=== PATIENT | male | born 1940 | race Caucasian/White ===

== ENCOUNTER 2020-03-22 16:13 | Emergency (ER) | payer MEDICARE, SELFPAY ==
[2020-03-22] VITALS (16 sets, daily range): BP systolic 92–172; BP diastolic 60–93; PULSE 80–124; RESP 10–20; TEMP 35.1; O2SAT 94–100; BMI 29.7
--- NOTE | 2020-03-22 16:22 | XR_ITS ---
WS: [id number] Portable AP upright chest, 03/22/2020 Clinical Data: hypoxia, ETT Comparison: Portable chest, 09/27/2018. Findings: There is opacification of the left thorax from a previous pneumonectomy. There is a calcifi ed pleural plaque in the left upper pleura unchanged. The endotracheal tube is at the latha. It need s to be retreated 4 centimeters. The nasogastric tube appears to end at the gastroesophageal junction . Right lung is fully expanded with no nodules, masses or effusions. No right pneumothorax or pneumon ia is seen. There are monitor leads on the chest wall. XR/XR chest 1V portable [id number] Impression: 1. No change in opacification of left thorax from pneumonectomy and calcified l eft upper pleura. 2. Endotracheal tube is at the latha. It needs to be retreated 4 centimeters. 3. Nasogastric tube ends at the gastroesophageal junction.
[2020-03-22 16:31] LABS: Basophils % 0.3 %; Hematocrit 48.5 % (42.0-52.0); Hemoglobin 15.7 g/dL (11.7-16.6); Lymphocytes # 1.1 10^3/uL (0.8-4.8); Lymphocytes % 8.9 %; Mean Corpuscular HGB Conc 32.4 g/dL (30.0-36.0); Mean Corpuscular Hemoglobin 35.6 pg (28.0-34.0); Mean Platelet Volume 9.8 fL (7.4-10.4); Monocytes % 8.8 %; Neutrophils # 9.58 10^3/uL (1.8-7.7); Neutrophils % 81.5 %; Nucleated Red Blood Cells % 0 %; Platelet Count 184 10^3/cmm (130-400); Red Blood Count 4.41 10^6/uL (4.1-5.3); Red Cell Distribution Width 13.4 % (12.1-15.1); White Blood Count 11.8 10^3/uL (4.0-10.0)
--- NOTE | 2020-03-22 16:37 | CTR_ITS ---
PROCEDURE INFORMATION: Exam: CT Head Without Contrast Exam date and time: 03/22/2020 5:29 PM Age: 80 years old Clinical indication: Other: PT found unresponsive; Patient HX: Scanned twice due to motion; Additional info: AMS TECHNIQUE: Imaging protocol: Computed tomography of the head without contrast. Radiation optimization: All CT scans at this facility use at least one of these dose optimization techniques: automated exposure control; mA and/or kV adjustment per patient size (includes targeted exams where dose is matched to clinical indication); or iterative reconstruction. COMPARISON: CT head wo con* [id number] 09/27/2018 7:33 AM RADIATION DOSE METRICS: Total DLP (mGy-cm): 1270.9 FINDINGS: Brain: Cerebral arteriosclerosis. No visible evidence of acute intracranial pathologic process, trauma, or hemorrhage. No mass effect. No generalized edema. No midline shift. Moderately advanced small vessel ischemic disease with senile periventricular leukomalacia. Cerebral and cerebellar atrophy with ventricular dilatation greater than that anticipated for patient's chronological age. Ventricles: No obstructive ventriculomegaly. Bones/joints: Unremarkable. No acute fracture. Sinuses: Visualized sinuses are unremarkable. No fluid levels. Mastoid air cells: Visualized mastoid air cells are well aerated. Soft tissues: Unremarkable. CT/CT head wo con* [id number] IMPRESSION: No visible evidence of acute intracranial pathologic process, trauma, or hemorrhage. Radiation Dose CTDIVOL = (mGy): DLP = 1270.9 (mGy-cm)
--- NOTE | 2020-03-22 16:54 | W.ED.GENADLT ---
HPI - General Adult General: Chief complaint: General Medical Stated complaint: UNRESPONSIVE Time Seen by Provider: 03/22/20 16:14 History of Present Illness: HPI narrative: This patient is an 80-year-old male. His states that he has been in his normal state of health until just before the ambulance was called. She said he was just sitting on the couch and then suddenly slid off of it. She said he was responding to her and speaking appropriately. EMS reports that on their arrival he was cyanotic with a sat of 50%. They transported him with a nonrebreather and his sat was 100% on that on arrival. He had a nasal trumpet in. His GCS was 10 or 11. EMS did give him Narcan which increased his respiratory rate from about 7 to about 15 but did not change his mental status at all. He has a history of lung cancer and his says he had a left pneumonectomy in 1997. He has not had any problems with his lung cancer since then. She does not think he has a history of any kind of heart problems. He has not had any recent illness or been complaining of chest pain or shortness of breath. No known exposures to COVID. Onset (ago): minute(s) (Just prior to arrival) Review of Systems General: Reports: ROS unobtainable due to mental status [facility] ED PFSH: Medical History (Updated 03/23/20 @ 11:12 by Aleta Wong MD) DJD (degenerative joint disease) GERD (gastroesophageal reflux disease) History of lung cancer Seizure disorder Surgical History (Updated 03/22/20 @ 20:11 by Seamus Garcia MD) History of pneumonectomy Social History (Updated 03/22/20 @ 20:11 by Seamus Garcia MD) Smoking and tobacco status: former smoker Alcohol intake: never Physical Exam Narrative: EXAM NARRATIVE: Brought in by EMS, nasal trumpet in place, nonrebreather. Const: COMMON NORMALS: average body habitus ORIENTATION/CONSCIOUSNESS: Yes patient obtunded HENMT: COMMON NORMALS: normocephalic and atraumatic HEAD & SCALP: normocephalic and atraumatic Neck/C-Spine: COMMON NORMALS: no JVD GENERAL: Yes normal visual inspection Lymph: LYMPHATIC: no lymphadenopathy noted Chest: COMMONS NORMALS: normal inspection of the chest Resp: EFFORT & INSPECTION: Yes decreased respiratory effort AUSCULTATION: rhonchi (Right lung, throughout) and breath sounds absent (Left lung area) Cardio: COMMON NORMALS: no JVD RATE: tachycardic HEART SOUNDS: no murmurs GI: COMMON NORMALS: Normal to inspection, nondistended, normoactive bowel sounds present : COMMON NORMALS: Yes normal external exam Extremity: COMMON NORMALS: normal to inspection Neuro: VIANNEY COMA SCALE: document GCS findings [place] coma scale eye opening: To sound [place] coma scale verbal response: None [place] coma scale motor response: None [place] coma scale total score: 5 SENSORIUM/ORIENTATION: Yes obtunded Procedures Intubation Time out performed: Yes sedative: Etomidate Mg Given: 20 paralytic: Vecuronium Mg Given: 10 Laryngoscope: Samuel ET Tube Size: 7.5 ET Tube Uncuffed: No Tube Secured Depth (cm): 25 Tube Secured Location: other (gums) Tube Placement Confirmation: visualized tube passing through cords, equal breath sounds bilaterally, no breath sounds over epigastrium and confirmation by capnometry Patient Tolerated Procedure: well Intubation Complications: none Course ED course: This patient presented unresponsive and with no protection of his airway. His sats were adequate but only on a nonrebreather. He was intubated based on the EMS report that he was a full code. Short time after he was intubated he had some bradycardia and very weak pulse. He had an unmeasurable blood pressure. The rate on the monitor was in the 70s but he only had a palpable pulse of about 30. He was given a dose of atropine, epinephrine and put on epinephrine drip. His blood pressure came up high after the epinephrine as did his heart rate. It gradually came back down and he was hypotensive again. Once the epi drip was started his blood pressure came up and has remained around 120s over 130s on 2 mics of epinephrine. He initially did not require any sedation after getting etomidate and vecuronium for intubation. After some time he did wake up and was noted to move all 4 extremities. He responded to painful stimuli. Sedation was increased numerous times until we were finally able to get him comfortable and calm. I consulted Dr. Garcia for admission. He came to see the patient and was concerned that he could be having ongoing seizure activity given his seizure history. His , who is with him, is not the best historian and is a little vague about his seizure history. Apparently has these fairly frequently but they are atypical. He is on 3 different seizure medications. His does not feel that this episode was a seizure. Because we do not have neurology available over the next 4 days we thought it would be best to transfer him to a place where he can have a neurology consult and continuous EEG if necessary. His says that the only place she will have him transferred to his the [facility] and I am awaiting a callback from there. She says he has seen a neurologist there, Dr. Doss, in the past. Vital Signs: Vital signs: Vital Signs Temperature 95.1 F L 03/22/20 16:17 Pulse Rate 86 03/23/20 04:10 Respiratory Rate 16 03/23/20 04:10 Blood Pressure 137/93 03/23/20 04:10 Pulse Oximetry 98 03/23/20 04:10 MDM - General Adult Lab Data: Labs: Lab Results 03/22/20 03/22/20 03/22/20 Range/Units 16:23 16:24 16:24 WBC 11.8 H (4.0-10.0) 10^3/ uL RBC 4.41 (4.1-5.3) 10^6/u L Hgb 15.7 (11.7-16.6) g/dL Hct 48.5 (42.0-52.0) % MCV 110.0 H (80-94) fL MCH 35.6 H (28.0-34.0) pg MCHC 32.4 (30.0-36.0) g/dL RDW 13.4 (12.1-15.1) % Plt Count 184 (130-400) 10^3/c mm MPV 9.8 (7.4-10.4) fL Neut % (Auto) 81.5 % Lymph % (Auto) 8.9 % Bledsoe % (Auto) 8.8 % Eos % (Auto) 0.0 % Baso % (Auto) 0.3 % Neut # (Auto) 9.58 H (1.8-7.7) 10^3/u L Lymph # (Auto) 1.1 (0.8-4.8) 10^3/u L Bledsoe # (Auto) 1.0 H (0.2-0.9) 10^3/u L Eos # (Auto) 0.0 (0.0-0.8) 10^3/u L Baso # (Auto) 0.0 (0.0-0.1) 10^3/u L Nucleated RBC % (a uto) 0 % Nucleated RBCs # 0.0 /100WBC PT 12.60 (12.1-14.9) SECO NDS INR 0.92 (0.8-1.2) D-Dimer 0.49 (0-0.59) ug/mIFE U Specimen Type Sample Site ABG pH (7.35-7.45) ABG pCO2 (35-45) mmHg ABG pO2 (80.0-100.0) mmH g ABG HCO3 (22-26) mmol/L ABG Base Excess (-2.0-2.0) mmol/ L Wali Test Hematocrit (42-52) % O2 Delivery Device FiO2 % Tidal Volume PEEP cmH20 Demand Generation Manager ID Sodium (136-145) mmol/L Potassium (3.5-5.1) mmol/L Chloride (98-107) mmol/L Carbon Dioxide (22-29) mmol/L Anion Gap (5-19) BUN (8-23) mg/dL Creatinine (0.7-1.2) mg/dL GFR Calculation Glucose (65-115) mg/dL Calculated Osmolal ity (285-295) mOsm/k g Lactic Acid (0.5-2.2) mmol/L Calcium (8.5-10.5) mg/dL Magnesium (1.7-2.3) mg/dL Total Bilirubin (0.15-1.2) mg/dL AST (0-40) U/L ALT (0-41) U/L Alkaline Phosphata se (40-130) IU/L Ammonia 49 (16-60) umol/L Troponin T Baselin e (0-15) ng/L Troponin T 120 Min [place] (0-15) ng/L Delta Troponin T (0-10) ABS# C-Reactive Protein (0.0-4.9) mg/L Total Protein (6.6-8.7) g/dL Albumin (3.5-5.2) g/dL Globulin (1.3-4.6) g/dL Procalcitonin (0-0.5) ng/mL TSH (0.27-4.20) uIU/ mL Urine Color (Yellow) Urine Appearance (CLEAR) Urine pH (5-7) Ur Specific Gravit y (1.005-1.030) Urine Protein (Negative) Urine Glucose (UA) (Normal) Urine Ketones (Negative) Urine Blood (Negative) Urine Nitrate (Negative) Urine Bilirubin (NEGATIVE) Urine Urobilinogen (Negative) mg/dL Ur Leukocyte Renita ase (Negative) Urine RBC (0-2) /hpf Urine WBC (0-5) /hpf Ur Squamous Epith Cells (0-5) Amorphous Sediment Urine Bacteria (NONE) Urine Opiates Scre en (Negative) ng/mL Ur Barbiturates Sc reen (Negative) ng/mL Ur Phencyclidine S crn (Negative) ng/mL Ur Amphetamines Sc reen (Negative) ng/mL U Benzodiazepines Scrn (Negative) ng/mL Urine Cocaine Scre en (Negative) ng/mL U Marijuana (THC) Screen (Negative) ng/mL Ethyl Alcohol (0-10) mg/dL SARS-CoV-2 Ag (Rap id) (Negative) 03/22/20 03/22/20 03/22/20 Range/Units 16:24 16:24 16:44 WBC (4.0-10.0) 10^3/ uL RBC (4.1-5.3) 10^6/u L Hgb (11.7-16.6) g/dL Hct (42.0-52.0) % MCV (80-94) fL MCH (28.0-34.0) pg MCHC (30.0-36.0) g/dL RDW (12.1-15.1) % Plt Count (130-400) 10^3/c mm MPV (7.4-10.4) fL Neut % (Auto) % Lymph % (Auto) % Bledsoe % (Auto) % Eos % (Auto) % Baso % (Auto) % Neut # (Auto) (1.8-7.7) 10^3/u L Lymph # (Auto) (0.8-4.8) 10^3/u L Bledsoe # (Auto) (0.2-0.9) 10^3/u L Eos # (Auto) (0.0-0.8) 10^3/u L Baso # (Auto) (0.0-0.1) 10^3/u L Nucleated RBC % (a uto) % Nucleated RBCs # /100WBC PT (12.1-14.9) SECO NDS INR (0.8-1.2) D-Dimer (0-0.59) ug/mIFE U Specimen Type Sample Site ABG pH (7.35-7.45) ABG pCO2 (35-45) mmHg ABG pO2 (80.0-100.0) mmH g ABG HCO3 (22-26) mmol/L ABG Base Excess (-2.0-2.0) mmol/ L Wali Test Hematocrit (42-52) % O2 Delivery Device FiO2 % Tidal Volume PEEP cmH20 Demand Generation Manager ID Sodium 136 (136-145) mmol/L Potassium 4.6 (3.5-5.1) mmol/L Chloride 95 L (98-107) mmol/L Carbon Dioxide 29 (22-29) mmol/L Anion Gap 16.6 (5-19) BUN 32 H (8-23) mg/dL Creatinine 1.2 (0.7-1.2) mg/dL GFR Calculation Not Reportable Glucose 230 H (65-115) mg/dL Calculated Osmolal ity 287 (285-295) mOsm/k g Lactic Acid 1.8 (0.5-2.2) mmol/L Calcium 8.8 (8.5-10.5) mg/dL Magnesium 2.2 (1.7-2.3) mg/dL Total Bilirubin 0.3 (0.15-1.2) mg/dL AST 22 (0-40) U/L ALT 19 (0-41) U/L Alkaline Phosphata se 77 (40-130) IU/L Ammonia (16-60) umol/L Troponin T Baselin e (0-15) ng/L Troponin T 120 Min [place] (0-15) ng/L Delta Troponin T (0-10) ABS# C-Reactive Protein 39.4 H (0.0-4.9) mg/L Total Protein 7.4 (6.6-8.7) g/dL Albumin 4.2 (3.5-5.2) g/dL Globulin 3.2 (1.3-4.6) g/dL Procalcitonin 0.12 (0-0.5) ng/mL TSH (0.27-4.20) uIU/ mL Urine Color Yellow (Yellow) Urine Appearance Hazy A (CLEAR) Urine pH 6 (5-7) Ur Specific Gravit y 1.020 (1.005-1.030) Urine Protein Neg (Negative) Urine Glucose (UA) Norm (Normal) Urine Ketones Negative (Negative) Urine Blood Neg (Negative) Urine Nitrate Negative (Negative) Urine Bilirubin Neg (NEGATIVE) Urine Urobilinogen Neg (Negative) mg/dL Ur Leukocyte Renita ase 1+ H (Negative) Urine RBC None (0-2) /hpf Urine WBC 25-40 H (0-5) /hpf Ur Squamous Epith Cells 0-4 H (0-5) Amorphous Sediment Not Reportable Urine Bacteria 2+ H (NONE) Urine Opiates Scre en (Negative) ng/mL Ur Barbiturates Sc reen (Negative) ng/mL Ur Phencyclidine S crn (Negative) ng/mL Ur Amphetamines Sc reen (Negative) ng/mL U Benzodiazepines Scrn (Negative) ng/mL Urine Cocaine Scre en (Negative) ng/mL U Marijuana (THC) Screen (Negative) ng/mL Ethyl Alcohol < 10 (0-10) mg/dL SARS-CoV-2 Ag (Rap id) (Negative) 03/22/20 03/22/20 03/22/20 Range/Units 16:44 16:54 18:52 WBC (4.0-10.0) 10^3/ uL RBC (4.1-5.3) 10^6/u L Hgb (11.7-16.6) g/dL Hct (42.0-52.0) % MCV (80-94) fL MCH (28.0-34.0) pg MCHC (30.0-36.0) g/dL RDW (12.1-15.1) % Plt Count (130-400) 10^3/c mm MPV (7.4-10.4) fL Neut % (Auto) % Lymph % (Auto) % Bledsoe % (Auto) % Eos % (Auto) % Baso % (Auto) % Neut # (Auto) (1.8-7.7) 10^3/u L Lymph # (Auto) (0.8-4.8) 10^3/u L Bledsoe # (Auto) (0.2-0.9) 10^3/u L Eos # (Auto) (0.0-0.8) 10^3/u L Baso # (Auto) (0.0-0.1) 10^3/u L Nucleated RBC % (a uto) % Nucleated RBCs # /100WBC PT (12.1-14.9) SECO NDS INR (0.8-1.2) D-Dimer (0-0.59) ug/mIFE U Specimen Type Arterial Sample Site Brachial, left ABG pH 7.39 (7.35-7.45) ABG pCO2 36.2 (35-45) mmHg ABG pO2 499.0 H (80.0-100.0) mmH g ABG HCO3 22.0 (22-26) mmol/L ABG Base Excess -2.5 L (-2.0-2.0) mmol/ L Wali Test N/a Hematocrit 42.3 (42-52) % O2 Delivery Device Vent FiO2 100.0 % Tidal Volume 0.55 PEEP 8.0 cmH20 Demand Generation Manager ID glc Sodium (136-145) mmol/L Potassium (3.5-5.1) mmol/L Chloride (98-107) mmol/L Carbon Dioxide (22-29) mmol/L Anion Gap (5-19) BUN (8-23) mg/dL Creatinine (0.7-1.2) mg/dL GFR Calculation Glucose (65-115) mg/dL Calculated Osmolal ity (285-295) mOsm/k g Lactic Acid (0.5-2.2) mmol/L Calcium (8.5-10.5) mg/dL Magnesium (1.7-2.3) mg/dL Total Bilirubin (0.15-1.2) mg/dL AST (0-40) U/L ALT (0-41) U/L Alkaline Phosphata se (40-130) IU/L Ammonia (16-60) umol/L Troponin T Baselin e (0-15) ng/L Troponin T 120 Min [place] (0-15) ng/L Delta Troponin T (0-10) ABS# C-Reactive Protein (0.0-4.9) mg/L Total Protein (6.6-8.7) g/dL Albumin (3.5-5.2) g/dL Globulin (1.3-4.6) g/dL Procalcitonin (0-0.5) ng/mL TSH (0.27-4.20) uIU/ mL Urine Color (Yellow) Urine Appearance (CLEAR) Urine pH (5-7) Ur Specific Gravit y (1.005-1.030) Urine Protein (Negative) Urine Glucose (UA) (Normal) Urine Ketones (Negative) Urine Blood (Negative) Urine Nitrate (Negative) Urine Bilirubin (NEGATIVE) Urine Urobilinogen (Negative) mg/dL Ur Leukocyte Renita ase (Negative) Urine RBC (0-2) /hpf Urine WBC (0-5) /hpf Ur Squamous Epith Cells (0-5) Amorphous Sediment Urine Bacteria (NONE) Urine Opiates Scre en Negative (Negative) ng/mL Ur Barbiturates Sc reen Negative (Negative) ng/mL Ur Phencyclidine S crn Negative (Negative) ng/mL Ur Amphetamines Sc reen Negative (Negative) ng/mL U Benzodiazepines Scrn Negative (Negative) ng/mL Urine Cocaine Scre en Negative (Negative) ng/mL U Marijuana (THC) Screen Negative (Negative) ng/mL Ethyl Alcohol (0-10) mg/dL SARS-CoV-2 Ag (Rap id) Negative (Negative) 03/22/20 03/22/20 03/22/20 Range/Units 19:58 19:58 21:48 WBC (4.0-10.0) 10^3/ uL RBC (4.1-5.3) 10^6/u L Hgb (11.7-16.6) g/dL Hct (42.0-52.0) % MCV (80-94) fL MCH (28.0-34.0) pg MCHC (30.0-36.0) g/dL RDW (12.1-15.1) % Plt Count (130-400) 10^3/c mm MPV (7.4-10.4) fL Neut % (Auto) % Lymph % (Auto) % Bledsoe % (Auto) % Eos % (Auto) % Baso % (Auto) % Neut # (Auto) (1.8-7.7) 10^3/u L Lymph # (Auto) (0.8-4.8) 10^3/u L Bledsoe # (Auto) (0.2-0.9) 10^3/u L Eos # (Auto) (0.0-0.8) 10^3/u L Baso # (Auto) (0.0-0.1) 10^3/u L Nucleated RBC % (a uto) % Nucleated RBCs # /100WBC PT (12.1-14.9) SECO NDS INR (0.8-1.2) D-Dimer (0-0.59) ug/mIFE U Specimen Type Sample Site ABG pH (7.35-7.45) ABG pCO2 (35-45) mmHg ABG pO2 (80.0-100.0) mmH g ABG HCO3 (22-26) mmol/L ABG Base Excess (-2.0-2.0) mmol/ L Wali Test Hematocrit (42-52) % O2 Delivery Device FiO2 % Tidal Volume PEEP cmH20 Demand Generation Manager ID Sodium (136-145) mmol/L Potassium (3.5-5.1) mmol/L Chloride (98-107) mmol/L Carbon Dioxide (22-29) mmol/L Anion Gap (5-19) BUN (8-23) mg/dL Creatinine (0.7-1.2) mg/dL GFR Calculation Glucose (65-115) mg/dL Calculated Osmolal ity (285-295) mOsm/k g Lactic Acid (0.5-2.2) mmol/L Calcium (8.5-10.5) mg/dL Magnesium (1.7-2.3) mg/dL Total Bilirubin (0.15-1.2) mg/dL AST (0-40) U/L ALT (0-41) U/L Alkaline Phosphata se (40-130) IU/L Ammonia (16-60) umol/L Troponin T Baselin e 200 H* (0-15) ng/L Troponin T 120 Min [place] 211.4 H (0-15) ng/L Delta Troponin T 11.4 H* (0-10) ABS# C-Reactive Protein (0.0-4.9) mg/L Total Protein (6.6-8.7) g/dL Albumin (3.5-5.2) g/dL Globulin (1.3-4.6) g/dL Procalcitonin (0-0.5) ng/mL TSH 0.94 (0.27-4.20) uIU/ mL Urine Color (Yellow) Urine Appearance (CLEAR) Urine pH (5-7) Ur Specific Gravit y (1.005-1.030) Urine Protein (Negative) Urine Glucose (UA) (Normal) Urine Ketones (Negative) Urine Blood (Negative) Urine Nitrate (Negative) Urine Bilirubin (NEGATIVE) Urine Urobilinogen (Negative) mg/dL Ur Leukocyte Renita ase (Negative) Urine RBC (0-2) /hpf Urine WBC (0-5) /hpf Ur Squamous Epith Cells (0-5) Amorphous Sediment Urine Bacteria (NONE) Urine Opiates Scre en (Negative) ng/mL Ur Barbiturates Sc reen (Negative) ng/mL Ur Phencyclidine S crn (Negative) ng/mL Ur Amphetamines Sc reen (Negative) ng/mL U Benzodiazepines Scrn (Negative) ng/mL Urine Cocaine Scre en (Negative) ng/mL U Marijuana (THC) Screen (Negative) ng/mL Ethyl Alcohol (0-10) mg/dL SARS-CoV-2 Ag (Rap id) (Negative) Discharge Plan Discharge Patient Disposition: Xfer Intermediate Care Fac Clinical Impression: Syncope and collapse, History of seizure disorder Hypotension Qualifiers: Hypotension type: unspecified hypotension type Qualified Code(s): I95.9 - Hypotension, unspecified Respiratory failure Qualifiers: Chronicity: unspecified Respiratory failure complication: unspecified whether with hypoxia or hypercapnia Qualified Code(s): J96.90 - Respiratory failure, unspecified, unspecified whether with hypoxia or hypercapnia Prescriptions: No Action Unable to Assess RF: 0 Referrals: Laith Rasheed MD [Primary Care Provider] - Discharge Date/Time: 03/23/20 05:13 Coding Level of Care Code ED Personal Lines Underwriter for g Fwd Exam Comprehensive
[2020-03-22 16:55] LABS: INR 0.92 (0.8-1.2)
[2020-03-22 16:56] LABS: Ammonia 49 umol/L (16-60)
[2020-03-22] MEDS: vecuronium 10 mg SDV IVP (16:57)
[2020-03-22] MEDS: EPINEPHrine 0.1 mg/mL SYR 10 mL 1 MG IVP (16:57)
[2020-03-22 16:58] LABS: D Dimer 0.49 ug/mIFEU (0-0.59)
[2020-03-22 16:59] LABS: Add Urine Microscopic? YES; Bilirubin Urine Neg (NEGATIVE); Blood Urine Neg (Negative); Glucose Urine UA Norm (Normal); Ketones Urine Negative (Negative); Leukocyte Esterase Urine 1+ (Negative); Nitrate Urine Negative (Negative); Protein Urine Neg (Negative); Urine Appearance Hazy (CLEAR); Urine Color Yellow (Yellow); Urobilinogen Urine Neg (Negative); pH Urine 6 (5-7)
[2020-03-22 17:01] LABS: Lactic Sepsis W/Reflex 1.8 mmol/L (0.5-2.2)
[2020-03-22 17:02] LABS: Bacteria Urine 2+; Squamous Epithelial Cell Urine 0-4 (0-5); WBC Urine 25-40 /hpf (0-5)
[2020-03-22 17:03] LABS: Add Urine Culture? Yes
[2020-03-22 17:03] LABS: ABG PCO2 36.2 mmHg (35-45); ABG PH Result 7.39 (7.35-7.45); Arterial Blood Gas Hematocrit 42.3 % (42-52); Base Excess ABG -2.5 mmol/L (-2.0-2.0); Blood Gas Operator Identificat glc; Blood Gas Sample Site Brachial, left; Blood Gas Sample Type Arterial; Blood Gas Tidal Volume 0.55; Oxygen Device VENT
[2020-03-22 17:10] LABS: Procalcitonin 0.12 ng/mL (0-0.5)
[2020-03-22] MEDS: EPINEPHrine 2.5 MG in sodium chloride 0.9% 250 ML 18.2 MG IV (17:13)
[2020-03-22 17:21] LABS: Alanine Aminotransferase 19 U/L (0-41); Albumin Level 4.2 g/dL (3.5-5.2); Alkaline Phosphatase 77 IU/L (40-130); Anion Gap 16.6 (5-19); Aspartate Amino Transferase 22 U/L (0-40); Blood Urea Nitrogen 32 mg/dL (8-23); C Reactive Protein 39.4 mg/L (0.0-4.9); Calcium 8.8 mg/dL (8.5-10.5); Carbon Dioxide 29 mmol/L (22-29); Chloride 95 mmol/L (98-107); Globulin 3.2 g/dL (1.3-4.6); Glucose 230 mg/dL (65-115); Magnesium 2.2 mg/dL (1.7-2.3); Osmolality Calculated 287 mOsm/kg (285-295); Potassium 4.6 mmol/L (3.5-5.1); Sodium 136 mmol/L (136-145); Total Bilirubin 0.3 mg/dL (0.15-1.2); Total Protein 7.4 g/dL (6.6-8.7)
[2020-03-22 17:23] LABS: Alcohol Level < 10 mg/dL (0-10)
[2020-03-22] MEDS: propofol 1,000 MG/100 ML INJ 1.6 MG IV (17:38)
--- NOTE | 2020-03-22 17:38 | PC.NURSE ---
pt given 20 mcg bolus diprovan from pump
--- NOTE | 2020-03-22 18:18 | CTR_ITS ---
PROCEDURE INFORMATION: Exam: CT Angiography Chest With Contrast Exam date and time: 03/22/2020 6:19 PM Age: 80 years old Clinical indication: Other: Hypoxia; Prior surgery; Surgery type: Lung TECHNIQUE: Imaging protocol: Computed tomographic angiography of the chest with intravenous contrast. 3D rendering (Not supervised by radiologist): MIP and/or 3D reconstructed images were created by the technologist. Radiation optimization: All CT scans at this facility use at least one of these dose optimization techniques: automated exposure control; mA and/or kV adjustment per patient size (includes targeted exams where dose is matched to clinical indication); or iterative reconstruction. Contrast material: VISI 320; Contrast volume: 72 ml; Contrast route: INTRAVENOUS (IV); COMPARISON: CT chest w con* [id number] 09/27/2018 7:50 AM RADIATION DOSE METRICS: Total DLP (mGy-cm): 648.56 FINDINGS: Tubes, catheters and devices: Endotracheal tube with tip at the latha and could be retracted 3-4 cm for optimal positioning. Nasogastric tube tip below the diaphragm at the level of the gastric fundus and could be advanced for optimal positioning. Pulmonary arteries: No visible pulmonary embolism/pulmonary arterial thrombus. Aorta: The thoracic aorta is nonaneurysmal. Mild arterial sclerotic disease. Lungs: Right lung with evidence of mild centrilobular emphysema. No visible active interstitial or alveolar airspace disease. Pleural space: Status post left pneumonectomy. Again note of chronic dystrophic calcifications of the left hemothorax pleura with stable pleural thickening. No visible interval change since 09/27/2018. Heart: Cardiac structures and configuration stable with 3 vessel coronary artery disease. Left ventricular prominence. No visible pericardial effusion. Lymph nodes: No visible active mediastinal or right hilar lymphadenopathy. Kidneys and ureters: Incidental note of a tiny focus of nonobstructing calyceal nephrolithiasis equator left kidney under 2 mm. Enlarged hydropic gallbladder without cholelithiasis. Bones/joints: No visible acute osseous abnormality. Age-appropriate degenerative disease and old compression wedge deformities of the distal thoracic and upper lumbar vertebral bodies. Mild scoliosis. Soft tissues: Unremarkable for age. Other findings: Artifact limits detail assessment image quality. CT/CT angio chest PE protcl [id number] IMPRESSION: 1. No visible pulmonary embolism. 2. Endotracheal tube with tip at the latha and could be retracted 3-4 cm for optimal positioning. 3. Nasogastric tube tip below the diaphragm at the level of the gastric fundus and could be advanced for optimal positioning. 4. Status post left pneumonectomy. 5. Other nonurgent, nonemergent, chronic, and age related findings as detailed in text above. Radiation Dose CTDIVOL = (mGy): DLP = 648.56 (mGy-cm)
[2020-03-22] MEDS: iodixanol 320 mg/mL 100mL Btl IV (18:38)
[2020-03-22] MEDS: fentaNYL 50 mcg/mL INJ 2mL 100 MCG IVP ×2 (18:57→20:47)
--- NOTE | 2020-03-22 18:57 | PC.NURSE ---
pt spouse states she is not leaving while nurse swabs for COVID . ED physician informed. Pt spouse instructed to not leave room under any circumstances. pt spouse veralized.
--- NOTE | 2020-03-22 19:07 | ECG_ITS ---
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 Measurements Intervals [place] Rate: 95 P: MI: -1 QRS: -54 QRSD: 158 T: 99 QT: 347 QTc: 438 Interpretive Statements Sinus rhytm with first degree AV block LEFT AXIS DEVIATION [QRS AXIS < -30] INTRAVENTRICULAR CONDUCTION DELAY [130+ ms QRS DURATION] Compared to ECG 09/27/2018 07:07:11 Left anterior fascicular block no longer present Left ventricular hypertrophy no longer present ST (T wave) deviation no longer present Myocardial infarct finding no longer present Electronically Signed On 03-23-2020 16:22:59 CDT by Joshua Albarran M.D. [id number]
[2020-03-22 19:19] LABS: SARS Covid-2 Antigen Negative (Negative)
--- NOTE | 2020-03-22 20:07 | P.CONIM_ITS ---
Providers/Reason For Consult Consulting Physican/Specialty*: Internal medicine Reason for Consult*: Unresponsive Attending Physician: Seamus Garcia MD Primary Care Provider: Laith Rasheed MD History of Present Illness History of Present Illness Ina Doyle is a 80 year old male that presents to the emergency department with history of an unresponsive episode. Apparently this afternoon around 4:30 PM, he suddenly slid off the couch while in the presence of his . She reports he did not respond to her at all initially. When paramedics arrived he said a few words, basically stating he did not want a go to the hospital. He had not been sick at all prior to the event. When paramedics arrived he apparently had a low oxygen saturation, and required a nasal trumpet. Narcan was tried but did not improve mental status. He ended up being intubated in the emergency department and had bradycardia following this as well as hypotension for which she was placed on some epinephrine IV. While I am seeing him he is on propofol. Nurse alerts me that while in the emergency department he was moving all of his extremities, and withdrawing from pain. He is never had a history of a stroke. He does not have any heart disease. alerts me that he has some type of neck problem leading to frequent falls. She also relates that he has seizures, usually starting with shaking of his right hand and then a generalized component of confusion and postictal state. She states this is not controlled despite multiple seizure medicines and he typically will have a seizure every 10 to 15 days. He has not had any exposure to COVID, personal history of COVID, or fever. Review of Systems General: Reports: 10 or more systems reviewed and unremarkable except in HPI and below (Unable to obtain currently from the patient secondary to mental status.) Meds/Allergies Home Medications and Allergies Home Medications Medication Instructions Recorded Confirmed Last Taken Type Unable to Assess 03/22/20 03/22/20 Unknown History Allergies Allergy/AdvReac Type Severity Reaction Status Date / Time No Known Allergies Allergy Verified 03/22/20 17:01 Current Medications Current Medications Generic Name Dose Route Start Last Admin Trade Name Freq PRN Reason Stop Dose Admin Propofol 1,000 mg in 100 mls @ 0 mls/hr 03/22/20 16:30 03/22/20 18:42 Diprivan IV 20 mcg/kg/min .Q0M BRITNI 10.3 mls/hr Titration Protocol Per Protocol Epinephrine HCl 2.5 mg/ Sodium 252.5 mls @ 0 mls/hr 03/22/20 16:30 03/22/20 17:13 Chloride IV 3 mcg/min .Q0M BRITNI 18.2 mls/hr Administration Protocol Per Protocol PFSH Acute PFSH: Medical History (Updated 03/22/20 @ 20:19 by Seamus Garcia MD) DJD (degenerative joint disease) GERD (gastroesophageal reflux disease) History of lung cancer Seizure disorder Surgical History (Updated 03/22/20 @ 20:11 by Seamus Garcia MD) History of pneumonectomy Social History (Updated 03/22/20 @ 20:11 by Seamus Garcia MD) Smoking and tobacco status: former smoker Alcohol intake: never Supplemental PFSH Information: Unable to obtain family history secondary to patient's mental status Vitals/I&O/Wt Last Vital Signs Temp 95.1 F L 03/22/20 16:17 Pulse 92 03/22/20 18:43 Resp 20 H 03/22/20 18:43 BP 128/70 03/22/20 18:51 Pulse Ox 100 03/22/20 19:01 03/22/20 03/22/20 03/22/20 06:59 14:59 22:59 Intake Total 1.707 / 1.707 Balance 1.707 / 1.707 Weight last 48 hrs Weight 86.183 kg Physical Exam Narrative: EXAM NARRATIVE: General exam is an adult white male, sedated on the ventilator. HEENT: Pupils equally round. Oropharynx with endotracheal tube. Neck is supple no lymphadenopathy or thyromegaly Cardiovascular regular rate and rhythm, no murmur. Lungs right lung clear. No breath sounds on the left. Abdomen is soft positive bowel sounds. No obvious organomegaly was deferred Extremities no cyanosis clubbing or edema, cap refill brisk Skin no rash Neuro sedated Urinary Catheter Management^: [place]: Cath Placed During This Visit: yes Reason for Continuing Indwelling Catheter: Accurate Measurement of Urinary Output in Critically Ill Patients Urinary Catheter Date of Insertion: 03/22/20 Urinary Catheter Time of Insertion: 16:36 Data Micro: Micro: Microbiology 03/22/20 16:35 Gram Stain - Final Sputum - Expector ated Sputum 03/22/20 16:28 Blood Culture - Pr eliminary Blood [facility] 03/22/20 16:24 Blood Culture - Pr eliminary Blood SPE[facility]IM[facility] Other Data: Other data: In discussion with respiratory therapist carbon monoxide level was not elevated. Chest x-ray she demonstrated pneumonectomy on the left, no infiltrate on the ri ght Head CT negative for anything acute CTA chest demonstrated no pulmonary embolism, pneumonectomy is noted pH 7.39, PCO2 36, PO2 499 CRP 39.4. LFTs normal TSH pending Rapid COVID negative Urinalysis demonstrates 25-40 whites, 0 reds Alcohol level less than 10 EKG demonstrates significant baseline waiver, sinus rhythm, left axis deviation. No ST elevation is noted. Intraventricular conduction delay is noted with a QRS duration of 158. Troponin has been ordered and pending A&P Assessment and plan (1) Syncope and collapse: Etiology of this is wide. The biggest concern would possibly be a seizure. Other potentials would be cardiac arrhythmia, CVA, myocardial infarction or cardiac outflow tract obstruction. Pulmonary embolism has been excluded. as he has a known seizure disorder requiring 3 medications and poor control despite this he will need neurology services and possible continuous EEG. This is not available currently here so transfer has been recommended. The emergency physician is reviewing the case and trying to arrange this. Consideration currently of reducing sedation, and seeing if he can follow directions and is responsive. If not, consider loading with Keppra. He was intubated secondary to GCS being significantly low with inability to protect airway. I have discussed this case with respiratory who will adjust his ventilator settings secondary to pneumonectomy(change to pressure support from assist control) Status: Acute (2) Hypotension: Epinephrine was started. This is only a 2. This is going to be weaned, to assess if he still needs this. He had episode of hypotension and bradycardia following intubation Status: Acute (3) UTI (urinary tract infection): Consider Rocephin IV prior to discharge Status: Acute Additional A&P Information Elevated glucose, without prior history of diabetes. Recheck and consider hemoglobin A1c. History of pneumonectomy for lung malignancy History of seizure disorder, on 3 medications History of GERD relates that he is full code, but would not want any long-term ventilatory support Consult Attestations Medical Necessity Statement: Not applicable Time Spent in Patient Care: Greater than 35 minutes Critical Care Time: 64 minutes spent in critical care time at bedside rev iewing ventilator settings, patient history, exam in this patient with respiratory failure, syncope and collapse, possible seizure who has a high risk for further decompensation and/or . Coding Level of Care Code Acute Director [employer] for [employer] Diagnoses Syncope and collapse R55 Hypotension I95.9 UTI (urinary tract infection) N39.0
[2020-03-22 20:36] LABS: Thyroid Stimulating Hormone 0.94 uIU/mL (0.27-4.20)
[2020-03-22 20:49] LABS: Troponin(5th) Baseline 200 ng/L (0-15)
--- NOTE | 2020-03-22 21:34 | PC.NURSE ---
during pt rounds, @1940 Dr Garcia gave vo to turn off epi drip. 2004: vo from Dr Garcia to titrate propofol drip until pt able to respond to verbal commands. Drip turned down to 4mcg/min. Pt able to respond to painful stimuli. vitals stable 2054: vo obtained from Dr Wong for 100mcg of fentanyl IVP prior to fentanyl drip to control pt's sedation. Pt's vitals stable at bedside
[2020-03-22 21:47] LABS: Amphetamines Screen Urine Negative (Negative); Barbiturates Screen Urine Negative (Negative); Benzodiazepines Screen Urine Negative (Negative); Cocaine Screen Urine Negative (Negative); Opiate Screen Urine Negative (Negative); PCP Screen Urine Negative (Negative); THC Screen Urine Negative (Negative)
[2020-03-22 22:37] LABS: Troponin 5 2HR 211.4 ng/L (0-15)
[2020-03-22 22:38] LABS: Troponin 5 2HR Delta 11.4 ABS# (0-10)
[2020-03-23 04:10] VITALS: BP 137/93; PULSE 86; RESP 16; O2SAT 98
== END 2020-03-23 05:13 | disposition intermediate care facility (04) ==
PROVIDERS: Internal Medicine; Emergency Provider Emergency Medicine
DX: R55 Syncope and collapse (principal); I95.9 Hypotension, unspecified; J96.90 Respiratory failure, unspecified, unspecified whether with hypoxia or hypercapnia; Z85.118 Personal history of other malignant neoplasm of bronchus and lung; Z90.2 Acquired absence of lung [part of]; Z87.891 Personal history of nicotine dependence
CPT/HCPCS: 12345; 31500; 36415; 36600; 51702; 70450; 71045; 71275; 80053; 80306; 80307; 81001; 82140; 82803; 83605; 83735; 84145; 84443; 84484; 85025; 85378; 85610; 86140; 87040; 87070; 87077; 87086; 87186; 87205; 87426; 93005; 94002; 94799; 96365; 96366; 96367; 96368; 96375; 96376; 99284; 99291; J0171; J0461; J2704; J3010; J3490; J7050; Q9967

== ENCOUNTER 2021-03-24 13:55 | Observation (INO) | payer MEDICARE, SELFPAY ==
[2021-03-24] VITALS (7 sets, daily range): BP systolic 128–172; BP diastolic 68–90; PULSE 78–94; RESP 18–27; TEMP 36.5–37.2; O2SAT 94–97; BMI 26.6
--- NOTE | 2021-03-24 14:07 | CTR_ITS ---
PROCEDURE INFORMATION: Exam: CT Head Without Contrast Exam date and time: 03/24/2021 2:07 PM Age: 81 years old Clinical indication: Altered mental status/memory loss; Confusion or disorientation; Additional info: AMS TECHNIQUE: Imaging protocol: Computed tomography of the head without contrast. Radiation optimization: All CT scans at this facility use at least one of these dose optimization techniques: automated exposure control; mA and/or kV adjustment per patient size (includes targeted exams where dose is matched to clinical indication); or iterative reconstruction. COMPARISON: CT head wo con* [id number] 03/22/2020 6:12 PM RADIATION DOSE METRICS: Total DLP (mGy-cm): 783.87 FINDINGS: Brain: No hemorrhage. Moderate diffuse cerebral atrophy and sequela of chronic small vessel ischemic disease. No mass effect. Cerebral ventricles: No ventriculomegaly. Paranasal sinuses: Visualized sinuses are unremarkable. No fluid levels. Mastoid air cells: Visualized mastoid air cells are well aerated. Orbital cavity: Post cataract surgical changes of the globes. Bones/joints: Unremarkable. No acute fracture. Soft tissues: Unremarkable. CT/CT head wo con* [id number] IMPRESSION: 1. No acute intracranial abnormality. 2. Moderate diffuse cerebral atrophy and sequela of chronic small vessel ischemic disease. Radiation Dose CTDIVOL = (mGy): DLP = 783.87 (mGy-cm)
--- NOTE | 2021-03-24 14:07 | XRR_ITS ---
PROCEDURE INFORMATION: Exam: XR Chest Exam date and time: 03/24/2021 2:07 PM Age: 81 years old Clinical indication: Dyspnea TECHNIQUE: Imaging protocol: XR of the chest. Views: 1 view. COMPARISON: MA XR chest 1V portable [id number] 03/22/2020 5:27 PM FINDINGS: Lungs: Left pneumonectomy changes again noted. No consolidation in the right lung. Pleural spaces: Unremarkable. No pleural effusion. No pneumothorax. Heart/Mediastinum: Unremarkable. No cardiomegaly. Bones/joints: Visualized osseous structures are intact. XR/XR chest 1V portable [id number] IMPRESSION: No acute findings.
--- NOTE | 2021-03-24 14:10 | ECG_ITS ---
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[id number] Requested By: Teresita Farley Order Number: [id number] Reading MD: KENNY MOCK Measurements Intervals [place] Rate: 86 P: 57 AR: 224 QRS: -52 QRSD: 102 T: 109 QT: 365 QTc: 438 Interpretive Statements SINUS RHYTHM WITH FIRST DEGREE AV BLOCK LEFT ANTERIOR FASCICULAR BLOCK [QRS AXIS <= -45, QR IN I, RS IN II] LEFT VENTRICULAR HYPERTROPHY AND ST-T CHANGE [VOLTAGE CRITERIA PLUS ST/T ABNORMALITY] POSSIBLE ANTEROSEPTAL MYOCARDIAL INFARCTION , OF INDETERMINATE AGE [30 ms Q WAVE IN V1-V4] Compared to ECG 03/22/2020 18:45:40 Left anterior fascicular block now present Left ventricular hypertrophy now present ST (T wave) deviation now present Myocardial infarct finding now present Left-axis deviation no longer present Intraventricular conduction delay no longer present Electronically Signed On 03-24-2021 20:13:32 CDT by KENNY MOCK [email or web address]
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
[2021-03-24] MEDS: albuterol 8 gm MDI 2 PUFF INHALATION (14:48)
[2021-03-24 14:58] LABS: Blood Gas Allen Test Pos; Blood Gas Operator Identificat MONRO; Blood Gas Sample Type Venous; Oxygen Device ROOM AIR
[2021-03-24] MEDS: sodium chloride 0.9% 500 ML IV (15:06)
[2021-03-24] MEDS: predniSONE 20 mg Tablet 60 MG PO (15:06)
[2021-03-24 15:26] LABS: Basophils # 0.1 10^3/uL (0.0-0.1); Basophils % 0.6 %; Eosinophils # 0.1 10^3/uL (0.0-0.8); Eosinophils % 1.2 %; Hematocrit 38.5 % (42.0-52.0); Hemoglobin 13.1 g/dL (11.7-16.6); Lymphocytes # 1.3 10^3/uL (0.8-4.8); Lymphocytes % 16.2 %; Mean Corpuscular Hemoglobin 35.7 pg (28.0-34.0); Mean Corpuscular Volume 104.9 fl (80-94); Mean Platelet Volume 9.3 fL (7.4-10.4); Monocytes # 0.8 10^3/uL (0.2-0.9); Monocytes % 10.1 %; Neutrophils # 5.57 10^3/uL (1.8-7.7); Neutrophils % 71.3 %; Nucleated Red Blood Cells % 0 %; Platelet Count 215 10^3/cmm (130-400); Red Blood Count 3.67 10^6/uL (4.1-5.3); Red Cell Distribution Width 12.1 % (12.1-15.1); White Blood Count 7.8 10^3/uL (4.0-10.0)
[2021-03-24 15:41] LABS: Troponin(5th) Baseline 31 ng/L (0-15)
[2021-03-24 15:42] LABS: Lactate (Lactic Acid level) 1.2 mmol/L (0.5-2.2)
[2021-03-24 15:43] LABS: Alanine Aminotransferase 49 U/L (0-41); Albumin Level 3.2 g/dL (3.5-5.2); Alkaline Phosphatase 78 IU/L (40-130); Anion Gap 15.1 (5-19); Aspartate Amino Transferase 61 U/L (0-40); Blood Urea Nitrogen 26 mg/dL (8-23); Calcium 8.1 mg/dL (8.5-10.5); Carbon Dioxide 24 mmol/L (22-29); Chloride 101 mmol/L (98-107); Globulin 2.4 g/dL (1.3-4.6); Glucose 108 mg/dL (65-115); Lipase 28 U/L (13-60); Osmolality Calculated 287 mOsm/kg (285-295); Potassium 4.1 mmol/L (3.5-5.1); Sodium 136 mmol/L (136-145); Total Bilirubin 0.3 mg/dL (0.15-1.2); Total Protein 5.6 g/dL (6.6-8.7)
[2021-03-24 15:55] LABS: Urine Appearance Cloudy (CLEAR); Urine Color Yellow (Yellow)
[2021-03-24 15:56] LABS: Add Urine Microscopic? YES; Bilirubin Urine Neg (Negative); Blood Urine 3+ (Negative); Glucose Urine UA Norm (Normal); Ketones Urine Negative (Negative); Leukocyte Esterase Urine 2+ (Negative); Nitrate Urine Negative (Negative); Protein Urine 1+ (Negative); Urobilinogen Urine Norm (Negative); pH Urine 5 (5-7)
[2021-03-24 15:58] LABS: WBC Urine TOO NUMEROUS TO CNT /hpf (0-5)
[2021-03-24 15:59] LABS: Add Urine Culture? Yes; Bacteria Urine 2+ /hpf
[2021-03-24 16:06] LABS: Creatine Phosphokinase 452 U/L (39-308)
--- NOTE | 2021-03-24 16:16 | CTR_ITS ---
PROCEDURE INFORMATION: Exam: CT Abdomen And Pelvis With Contrast Exam date and time: 03/24/2021 4:16 PM Age: 81 years old Clinical indication: Abdominal pain; Prior surgery; Surgery type: Lung; Additional info: Rule out obstructive pathologies per Dr. Chun TECHNIQUE: Imaging protocol: Computed tomography of the abdomen and pelvis with contrast. Radiation optimization: All CT scans at this facility use at least one of these dose optimization techniques: automated exposure control; mA and/or kV adjustment per patient size (includes targeted exams where dose is matched to clinical indication); or iterative reconstruction. Contrast material: OMNI 300; Contrast volume: 95 ml; Contrast route: INTRAVENOUS (IV); COMPARISON: CT angio chest PE protcl [id number] 03/22/2020 6:22 PM RADIATION DOSE METRICS: Total DLP (mGy-cm): 1256.71 FINDINGS: Liver: Normal. No mass. Gallbladder and bile ducts: Normal. No calcified stones. No ductal dilation. Pancreas: Normal. No ductal dilation. Spleen: Normal. No splenomegaly. Adrenal glands: Normal. No mass. Kidneys and ureters: Normal. No hydronephrosis. Stomach and bowel: Unremarkable. No obstruction. No mucosal thickening. Appendix: No evidence of appendicitis. Intraperitoneal space: Unremarkable. No free air. No significant fluid collection. Vasculature: Unremarkable. No abdominal aortic aneurysm. Lymph nodes: Unremarkable. No enlarged lymph nodes. Urinary bladder: Overdistended bladder with trabeculated appearance and bladder diverticula. 4 mm bladder stone. Reproductive: Punctate calcifications noted within the central prostate. Bones/joints: No acute fracture. Generalized osseous demineralization. Multilevel moderate compression deformities throughout the lower thoracic and upper lumbar spine and L4. They do not appear acute. Old posterior right 11th rib fracture. Soft tissues: Unremarkable. Other findings: Left pneumonectomy changes. CT/CT abdomen pelvis w con* [id number] IMPRESSION: Over distended bladder with diverticula, imaging appearance is suggestive of chronic outlet obstruction or bladder dysmotility. 4 mm bladder stone. Radiation Dose CTDIVOL = (mGy): DLP = 1256.71 (mGy-cm)
[2021-03-24 16:26] LABS: SARS Covid-2 Antigen Negative (Negative)
[2021-03-24] MEDS: iohexol 300 mg/mL 100 mL Btl IV (17:30)
--- NOTE | 2021-03-24 17:33 | P.CONIM_ITS ---
Providers/Reason For Consult Primary Care Provider: Laith Rasheed MD History of Present Illness History of Present Illness 80-year-old male with a past medical history significant for degenerative disorder, chronic obstructive pulmonary disease, obstructive sleep apnea on CPAP, hyperlipidemia, hypertension, gastroesophageal reflux disease, recurrent falls with hx of multilevel compression fractures (T4,T10,T11,T12), lung cancer with hx of left sided pneumonectomy, CVA (right caudate body), and seizure disorder who is presenting to ER with weakness. Per who provided history patient had slipped out of the chair to the ground when attempting to ambulate. He is at baseline using a walker however majority of the time in a wheelchair. Has been getting weaker since recent dx of UTI. He was seen by pcp and started on Ciprofloxacin + Diflucan. She was not able to get him up so EMS was called. On arrival patient appeared to have mild respiratory distress which patients states is close to his baseline. He is on proair at home which he was able to use. Did not require supplemental o2. Denied fever or chills. Noted increase frequency of urination due to sensation of incomplete voiding. Previously had a similar issue requiring velez however can not recall if any prostate issues were diagnosed. Has not been on flomax in the past. During fall earlier denied any LOC, seizure like activity, or head trauma. Most recent breakthrough seizure was 2 weeks prior. Lab workup on arrival showed a WBC of 7.8, hemoglobin of 13.1, hematocrit 38.5 and a platelet count of 215. Sodium 136, potassium 4.1, chloride 101, bicarb 24, BUN 26 and creatinine of 0.9. Lactic acid of 1.2. Calcium of 8.1. AST of 61, ALT of 49 and alkaline phosphatase of 78. Creatinine kinase of 452. Troponin T baseline of 31. COVID19 ag negative, PCR pending and UA showed 2+ leukocyte esterase, numerous WBC, 2+ bacteria , Imaging studies included a head CT without contrast which did not show any evidence of acute intracranial abnormality. Chest x-ray which also did not show any acute cardiopulmonary abnormality. CT abdomen/pelvis showed over distended bladder with diverticula, imaging appearance is suggestive of chronic outlet obstruction or bladder dysmotility. 4 mm bladder stone.Velez cath was ordered. In ER patient was given vancomycin 1g IV x 1, ceftriaxone 1g IM x 1, Prednisone 60mg Po x 1 and duoneb treatment. Recommeded trasfer to high level of care due to need for possible neurology however patient refused. Admitted to [facility] for further care. Review of Systems General: Reports: 10 or more systems reviewed and unremarkable except in HPI and below Meds/Allergies Home Medications and Allergies Home Medications Medication Instructions Recorded Confirmed Last Taken Type ciprofloxacin HCl 500 mg PO BID 03/24/21 03/24/21 03/24/21 History fluconazole 150 mg PO DAILY 03/24/21 03/24/21 03/24/21 History Allergies Allergy/AdvReac Type Severity Reaction Status Date / Time No Known Allergies Allergy Verified 03/22/20 17:01 Current Medications Current Medications Generic Name Dose Route Start Last Admin Trade Name Freq PRN Reason Stop Dose Admin Iohexol 0 ml 03/24/21 17:29 03/24/21 17:30 Iohexol 300 Mg/Ml 100 Ml Btl IV 03/24/21 17:30 95 ml ONCE ONE Administration PFSH Acute PFSH: Medical History (Updated 03/24/21 @ 16:47 by Teresita Farley MD) DJD (degenerative joint disease) GERD (gastroesophageal reflux disease) History of lung cancer Seizure disorder Surgical History (Updated 03/22/20 @ 20:11 by Seamus Garcia MD) History of pneumonectomy Social History (Updated 03/22/20 @ 20:11 by Seamus Garcia MD) Smoking and tobacco status: former smoker Alcohol intake: never Vitals/I&O/Wt Last Vital Signs Temp 98.9 F 03/24/21 14:20 Pulse 85 03/24/21 14:53 Resp 24 H 03/24/21 14:48 BP 172/90 03/24/21 14:00 Pulse Ox 97 03/24/21 14:53 Weight last 48 hrs Weight 77.111 kg Physical Exam Narrative: EXAM NARRATIVE: General : Chronically ill appearing, Mild respiratory distress 95% on Ra HEENT : Grossly unremarkable CVS; NSR Chest: Mild respiratory distress ABD; Non distended , no tenderness Ext: Mild B/L LE Edema Data Micro: Micro: Microbiology 03/24/21 16:23 Blood Culture - Pr eliminary Blood SPECIMEN [facility] MELVIN 03/24/21 15:50 Blood Culture - Pr eliminary Blood SPECIMEN [facility] MELVIN A&P Additional A&P Information Suspected Urinary Tract infection * Ciprofloxacin + Diflucan prior to arrival * UA 2+ LE, bacteria, numerous WBC, CBC- No leukocytosis * 03/24/21 Blood culture x 2 drawn * F/u on UA culture * Vancomycin 1g IV x1 in ER - Continue while at [facility] * Ceftriaxone 1g IM x 1 in ER * Continue Ceftriazone 2g IV daily Bladder outlet obstruction possible underlying BPH * CT abd/pelvis - Over distended bladder with diverticula, imaging appearance is suggestive of chronic outlet obstruction or bladder dysmotility. 4 mm bladder stone * Velez catherter placed * Flomax 0.4 mg PO daily started Seizure with possible breakthrough * Locasamide 200mg BID * Topiramate 200mg PO BID * Aptiom - Ok to use pt home meds * Seizure precautions Chronic Obstructive Pulmonary Disease with mild exacerbation * Duoneb q6hr scheduled * Prednisone 60 mg PO x 1 in ER * Will hold off on further steroids given infection * Supplemental o2 as needed * Chest x-ray - stable Obstructive Sleep Apnea * Resume CPAP at home settings Hypertension * Verify home meds and resume * Norvasc 10 mg PO daily noted Additional Medical History * Lung cancer hx of L. Pneumonectomy * Dyslipidemia * Recurrant falls * Remote hx of multi-level compression fx * Gasteroesophageal reflux disease DVT ppx * Heparin 5000 units q8hr CODE STATUS: D/w patient and at bedside. Requested D.N.R Consult Attestations Medical Necessity Statement: Anticipate over 2 midnight stayin hospital for eval and treatment Time Spent in Patient Care: Greater than 35 minutes (>than 50% of time spent in counselling and/or direct pt care on unit) . Coding Level of Care Code Acute Game Designer for Tony Powers
[2021-03-24] MEDS: vancomycin 1,000 MG in sodium chloride 0.9% 250 ML 250 MG IV (17:50)
[2021-03-24] MEDS: cefTRIAXone 1,000 MG in lidocaine 1% 2.1 ML 2 MG IM (17:50)
--- NOTE | 2021-03-24 18:11 | P.HP_ITS ---
Providers/Chief Complaint Admitting Physician: Lazara Escudero Primary Care Provider: Laith Rasheed MD Chief Complaint: AMS History of Present Illness 80-year-old male with a past medical history significant for degenerative disorder, chronic obstructive pulmonary disease, obstructive sleep apnea on CPAP, hyperlipidemia, hypertension, gastroesophageal reflux disease, recurrent falls with hx of multilevel compression fractures (T4,T10,T11,T12), lung cancer with hx of left sided pneumonectomy, CVA (right caudate body), and seizure disorder who is presenting to ER with weakness. Per who provided history patient had slipped out of the chair to the ground when attempting to ambulate. He is at baseline using a walker however majority of the time in a wheelchair. Has been getting weaker since recent dx of UTI. He was seen by pcp and started on Ciprofloxacin + Diflucan. She was not able to get him up so EMS was called. On arrival patient appeared to have mild respiratory distress which patients states is close to his baseline. He is on proair at home which he was able to use. Did not require supplemental o2. Denied fever or chills. Noted increase frequency of urination due to sensation of incomplete voiding. Previously had a similar issue requiring velez however can not recall if any prostate issues were diagnosed. Has not been on flomax in the past. During fall earlier denied any LOC, seizure like activity, or head trauma. Most recent breakthrough seizure was 2 weeks prior. Lab workup on arrival showed a WBC of 7.8, hemoglobin of 13.1, hematocrit 38.5 and a platelet count of 215. Sodium 136, potassium 4.1, chloride 101, bicarb 24, BUN 26 and creatinine of 0.9. Lactic acid of 1.2. Calcium of 8.1. AST of 61, ALT of 49 and alkaline phosphatase of 78. Creatinine kinase of 452. Troponin T baseline of 31. COVID19 ag negative, PCR pending and UA showed 2+ leukocyte esterase, numerous WBC, 2+ bacteria , Imaging studies included a head CT without contrast which did not show any evidence of acute intracranial abnormality. Chest x-ray which also did not show any acute cardiopulmonary abnormality. CT abdomen/pelvis showed over distended bladder with diverticula, imaging appearance is suggestive of chronic outlet obstruction or bladder dysmotility. 4 mm bladder stone.Velez cath was ordered. In ER patient was given vancomycin 1g IV x 1, ceftriaxone 1g IM x 1, Prednisone 60mg Po x 1 and duoneb treatment. Recommended transfer to high level of care due to need for possible neurology however patient refused. Admitted to [facility] for further care. Review of Systems General: Reports: 10 or more systems reviewed and unremarkable except in HPI and below Medications/Allergies Home Medications Medication Instructions Recorded Confirmed Last Taken Type ciprofloxacin HCl 500 mg PO BID 03/24/21 03/24/21 03/24/21 History fluconazole 150 mg PO DAILY 03/24/21 03/24/21 03/24/21 History Allergies Allergy/AdvReac Type Severity Reaction Status Date / Time No Known Allergies Allergy Verified 03/22/20 17:01 PFSH Acute PFSH: Medical History (Updated 03/24/21 @ 16:47 by Teresita Farley MD) DJD (degenerative joint disease) GERD (gastroesophageal reflux disease) History of lung cancer Seizure disorder Surgical History (Updated 03/22/20 @ 20:11 by Seamus Garcia MD) History of pneumonectomy Social History (Updated 03/22/20 @ 20:11 by Seamus Garcia MD) Smoking and tobacco status: former smoker Alcohol intake: never Vitals/I&O/Wt Last Vital Signs Temp 98.9 F 03/24/21 14:20 Pulse 94 03/24/21 17:51 Resp 24 H 03/24/21 14:48 BP 172/90 03/24/21 14:00 Pulse Ox 94 03/24/21 17:51 Weight last 48 hrs Weight 77.111 kg Physical Exam Narrative: EXAM NARRATIVE: General : Chronically ill appearing, Mild respiratory distress 95% on Ra HEENT : Grossly unremarkable CVS; NSR Chest: Mild respiratory distress ABD; Non distended , no tenderness Ext: Mild B/L LE Edema Data : 03/24/21 14:56 03/24/21 14:56 Micro: Microbiology 03/24/21 16:23 Blood Culture - Preliminary Blood SPECIMEN COLLECTED 03/24/21 15:50 Blood Culture - Preliminary Blood SPECIMEN COLLECTED A&P Additional A&P Information Suspected Urinary Tract infection * Ciprofloxacin + Diflucan prior to arrival * UA 2+ LE, bacteria, numerous WBC, CBC- No leukocytosis * 03/24/21 Blood culture x 2 drawn * F/u on UA culture * Vancomycin 1g IV x1 in ER - Continue while at [facility] * Ceftriaxone 1g IM x 1 in ER * Continue Ceftriazone 2g IV daily Bladder outlet obstruction possible underlying BPH * CT abd/pelvis - Over distended bladder with diverticula, imaging appearance is suggestive of chronic outlet obstruction or bladder dysmotility. 4 mm bladder stone * Velez catherter placed * Flomax 0.4 mg PO daily started Seizure with possible breakthrough * Locasamide 200mg BID * Topiramate 200mg PO BID * Aptiom - Ok to use pt home meds * Seizure precautions Chronic Obstructive Pulmonary Disease with mild exacerbation * Duoneb q6hr scheduled * Prednisone 60 mg PO x 1 in ER * Will hold off on further steroids given infection * Supplemental o2 as needed * Chest x-ray - stable Obstructive Sleep Apnea * Resume CPAP at home settings Hypertension * Verify home meds and resume * Norvasc 10 mg PO daily noted Additional Medical History * Lung cancer hx of L. Pneumonectomy * Dyslipidemia * Recurrant falls * Remote hx of multi-level compression fx * Gasteroesophageal reflux disease DVT ppx * Heparin 5000 units q8hr CODE STATUS: D/w patient and at bedside. Requested D.N.R Attestations Medical Necessity Statement*: Anticipate less than 2 midnight stay in hospital for eval and treatment Time Spent in Patient Care: Greater than 35 minutes (>than 50% of time spent in counselling and/or direct pt care on unit) . Coding Level of Care Code Acute Sewer And Drain Technician for Tony Powers
[2021-03-24 19:49] LABS: Ammonia 31 umol/L (16-60)
--- NOTE | 2021-03-24 19:54 | PC.NURSE ---
ceftriaxone rescheduled for [address] Victoria
[2021-03-24] MEDS: heparin 5,000 unit/mL INJ 1 mL 5000 UNIT SUBCUT (20:26)
[2021-03-24] MEDS: sodium chloride 0.9% 1,000 ML 75 ML IV (20:28)
[2021-03-25] VITALS (11 sets, daily range): BP systolic 116–143; BP diastolic 59–89; PULSE 59–85; RESP 16–25; TEMP 36.4–37.4; O2SAT 94–97
[2021-03-25] MEDS: ipratropium-albuterol 3 mL Neb INHALATION ×6 (00:20→21:19)
[2021-03-25] MEDS: heparin 5,000 unit/mL INJ 1 mL 5000 UNIT SUBCUT ×3 (04:14→20:58)
[2021-03-25 06:22] LABS: Basophils % 0.2 %; Eosinophils % 0.4 %; Hematocrit 36.8 % (42.0-52.0); Hemoglobin 12.6 g/dL (11.7-16.6); Lymphocytes # 1.2 10^3/uL (0.8-4.8); Lymphocytes % 23.3 %; Mean Corpuscular HGB Conc 34.2 g/dL (30.0-36.0); Mean Corpuscular Hemoglobin 35.9 pg (28.0-34.0); Mean Corpuscular Volume 104.8 fl (80-94); Mean Platelet Volume 9.3 fL (7.4-10.4); Monocytes # 0.6 10^3/uL (0.2-0.9); Neutrophils # 3.41 10^3/uL (1.8-7.7); Neutrophils % 64.3 %; Nucleated Red Blood Cells % 0 %; Platelet Count 208 10^3/cmm (130-400); Red Blood Count 3.51 10^6/uL (4.1-5.3); White Blood Count 5.3 10^3/uL (4.0-10.0)
[2021-03-25 06:40] LABS: Lactic Sepsis W/Reflex 0.9 mmol/L (0.5-2.2)
[2021-03-25 06:41] LABS: Alanine Aminotransferase 41 U/L (0-41); Albumin Level 2.9 g/dL (3.5-5.2); Alkaline Phosphatase 72 IU/L (40-130); Blood Urea Nitrogen 18 mg/dL (8-23); Calcium 8.3 mg/dL (8.5-10.5); Carbon Dioxide 23 mmol/L (22-29); Chloride 100 mmol/L (98-107); Globulin 2.6 g/dL (1.3-4.6); Glucose 113 mg/dL (65-115); Osmolality Calculated 279 mOsm/kg (285-295); Sodium 133 mmol/L (136-145); Total Bilirubin 0.2 mg/dL (0.15-1.2); Total Protein 5.5 g/dL (6.6-8.7)
--- NOTE | 2021-03-25 06:46 | PC.NURSE ---
report to Mare HARDING
[2021-03-25 06:47] LABS: Procalcitonin 0.18 ng/mL (0-0.5)
[2021-03-25 06:57] LABS: Anion Gap 14.3 (5-19); Aspartate Amino Transferase 53 U/L (0-40); Potassium 4.3 mmol/L (3.5-5.1)
[2021-03-25] MEDS: sodium chloride 0.9% 1,000 ML 75 ML IV (08:20)
[2021-03-25] MEDS: pantoprazole DR 40 mg Tablet PO (08:20)
[2021-03-25] MEDS: tamsulosin 0.4 mg Capsule PO (08:20)
[2021-03-25] MEDS: docusate sodium 100 mg Capsule PO ×2 (08:20→17:06)
[2021-03-25] MEDS: cefTRIAXone 2,000 MG in sodium chloride 0.9% (plus) 50 ML 100 MG IV (15:17)
--- NOTE | 2021-03-25 16:29 | P.PN_ITS ---
Subjective Subjective: Interval history: 80-year-old male with a past medical history significant for degenerative disorder, chronic obstructive pulmonary disease, obstructive sleep apnea on CPAP, hyperlipidemia, hypertension, gastroesophageal reflux disease, recurrent falls with hx of multilevel compression fractures (T4,T10,T11,T12), lung cancer with hx of left sided pneumonectomy, CVA (right caudate body), and seizure disorder who is presenting to ER with weakness. Per who provided history patient had slipped out of the chair to the ground when attempting to ambulate. He is at baseline using a walker however majority of the time in a wheelchair. Has been getting weaker since recent dx of UTI. He was seen by pcp and started on Ciprofloxacin + Diflucan. She was not able to get him up so EMS was called. On arrival patient appeared to have mild respiratory distress which patients states is close to his baseline. He is on proair at home which he was able to use. Did not require supplemental o2. Denied fever or chills. Noted increase frequency of urination due to sensation of incomplete voiding. Previously had a similar issue requiring velez however can not recall if any prostate issues were diagnosed. Has not been on flomax in the past. During fall earlier denied any LOC, seizure like activity, or head trauma. Most recent breakthrough seizure was 2 weeks prior. Lab workup on arrival showed a WBC of 7.8, hemoglobin of 13.1, hematocrit 38.5 and a platelet count of 215. Sodium 136, potassium 4.1, chloride 101, bicarb 24, BUN 26 and creatinine of 0.9. Lactic acid of 1.2. Calcium of 8.1. AST of 61, ALT of 49 and alkaline phosphatase of 78. Creatinine kinase of 452. Troponin T baseline of 31. COVID19 ag negative, PCR pending and UA showed 2+ leukocyte esterase, numerous WBC, 2+ bacteria , Imaging studies included a head CT without contrast which did not show any evidence of acute intracranial abnormality. Chest x-ray which also did not show any acute cardiopulmonary abnormality. CT abdomen/pelvis showed over distended bladder with diverticula, imaging appearance is suggestive of chronic outlet obstruction or bladder dysmotility. 4 mm bladder stone.Velez cath was ordered. In ER patient was given vancomycin 1g IV x 1, ceftriaxone 1g IM x 1, Prednisone 60mg Po x 1 and duoneb treatment. Recommended transfer to high level of care due to need for possible neurology however patient refused. Admitted to [facility] for further care. Subjective 03/25/2021 Patient appeared to be more alert today. T-max 99.4. Noted improvement in respiratory status. Velez catheter in place. Medications: Reviewed: Yes Vitals/I&O/Wt Last Vital Signs Temp 98.0 F 03/25/21 19:17 Pulse 70 03/25/21 21:23 Resp 18 03/25/21 21:23 BP 143/78 03/25/21 19:17 Pulse Ox 96 03/25/21 21:23 03/25/21 03/25/21 03/25/21 06:59 14:59 22:59 Intake Total 1000 / 1000 290 / 1290 Output Total 500 / 500 Balance 1000 / 1000 -210 / 790 Weight last 48 hrs Weight 72.393 kg Weight 77.111 kg Physical Exam Narrative: EXAM NARRATIVE: General : Chronically ill appearing, Appears more alert no distress HEENT : Grossly unremarkable CVS; NSR Chest: Non-labored respiration ABD; Non distended , no tenderness Ext: Mild B/L LE Edema Urinary Catheter Management^: Velez: Cath Placed During This Visit: yes Reason for Continuing Indwelling Catheter: Acute Urinary Retention or Obstruction Urinary Catheter Date of Insertion: 03/24/21 Urinary Catheter Time of Insertion: 22:46 Data : 03/25/21 06:10 03/25/21 06:10 Micro: Microbiology 03/24/21 16:23 Blood Culture - Preliminary Blood NEGATIVE TO DATE 03/24/21 15:50 Blood Culture - Preliminary Blood NEGATIVE TO DATE A&P Additional A&P Information Suspected Urinary Tract infection * Ciprofloxacin + Diflucan prior to arrival * UA 2+ LE, bacteria, numerous WBC, CBC- No leukocytosis * 03/24/21 Blood culture x 2 NGTD * UA culture neg however not realiable due to outpt abx * Vancomycin 1g IV x1 in ER * Ceftriaxone 1g IM x 1 in ER * Continue Ceftriazone 2g IV daily * Clinically improving Bladder outlet obstruction possible underlying BPH * CT abd/pelvis - Over distended bladder with diverticula, imaging appearance is suggestive of chronic outlet obstruction or bladder dysmotility. 4 mm bladder stone * Velez cath placed. * Flomax 0.4 mg PO daily * Will likely need to discharge home with velez leg back with outpatient follow up with urology Seizure with possible breakthrough * Locasamide 200mg BID * Topiramate 200mg PO BID * Aptiom - Ok to use pt home meds * Seizure precautions * D/w Charge nurse - verify and restart. Chronic Obstructive Pulmonary Disease with mild exacerbation * Duoneb q6hr scheduled * Prednisone 60 mg PO x 1 in ER * Will hold off on further steroids given infection * Supplemental o2 as needed * Chest x-ray - stable * Resolved. Obstructive Sleep Apnea * Continue CPAP at home settings Hypertension * Verify home meds and resume * Norvasc 10 mg PO daily noted Additional Medical History * Lung cancer hx of L. Pneumonectomy * Dyslipidemia * Recurrant falls * Remote hx of multi-level compression fx * Gasteroesophageal reflux disease DVT ppx * Heparin 5000 units q8hr CODE STATUS: D/w patient and at bedside. Requested D.N.R Attestations Medical Necessity Statement*: Continue hospital stay for managemnet of urinary obstruction, suspected uti and weakness. Time Spent in Patient Care: Greater than 35 minutes (>than 50% of time sp ent in counselling and/or direct pt care on unit) . Coding Level of Care Code Acute Mass Spectrometry Manager for Tony Powers
--- NOTE | 2021-03-25 16:57 | PC.CHAP ---
Pastoral Care Encounter/Spiritual Assessment Type of Contact [] Declined paid internship visit [] Patient/Family/Request visit [] Outpatient visit [] Follow-up visit [] Physician referral [] Code/Alert [XX] Routine visit [] Staff referral [] Actively dying [] Patient sleeping [] Family support [] [] Out of room [] Palliative care [] [] Receiving care in room [] Pre-surgical visit [] Trauma [] Long length of stay [] ICU visit [] Other: Relational/Emotional Strength [XX] Patient feels connected with others/family/visitors/staff [] Distress [] Loneliness/isolation [] Abandonment Spirituality of Patient [XX] Person of Loulou [XX] Attends Yarsanism of their Loulou [XX] Believes in Prayer [XX] Reads Bible or Catholic materials [] There are Spiritual issues to be addressed Machine Driller Interventions [XX] Prayer [XX] Active listening [XX] Non-anxious presence [] Spiritual/emotional support [] Crisis/trauma care [] Spiritual counseling [] Bereavement support [] Provided bereavement packet [] Provided Bible/devotional materials [] Provided toy/stuffed animal, coloring book to patient or family member [] Provided Communion [] Anointing/Myra [] Salvation [XX] Completed spiritual assessment [] Other: Impact on Illness or Injury [] Angry [] Fearful [] Anxious [] Often cries [] Exhaustion [] Unable to work [] Unable to attend quaker [] Unable to walk/stand [] Unable to read [] Unable to drive [] Unable to eat/drink [] Unable to sleep [] Unable to be with family [] Patient intubated [] Other: Summary: Pt was in good spirits just hoping there is an answer that's treatable for his primary problem re: voiding. Pt's present. They have a strong loulou but don't attend any particular rom[employer] cath[employer] in the area due to past experiences. Provided pt with Daily Bread. Time spent with patient: 15 mins
[2021-03-26] VITALS (11 sets, daily range): BP systolic 112–157; BP diastolic 58–88; PULSE 57–86; RESP 16–20; TEMP 36.6–37; O2SAT 94–99
[2021-03-26] MEDS: heparin 5,000 unit/mL INJ 1 mL 5000 UNIT SUBCUT ×3 (02:58→18:17)
[2021-03-26] MEDS: ipratropium-albuterol 3 mL Neb INHALATION ×4 (03:40→20:02)
--- NOTE | 2021-03-26 08:22 | PC.PHAR ---
pts verified pts medications-[facility]-pts states the pt finished his fluconazole on sat 03/24/21-pts states the pt had on dose left of the cipro states the pt would have finished on sat night 03/24/21
[2021-03-26] MEDS: amlodipine 10 mg Tablet PO (08:42)
[2021-03-26] MEDS: docusate sodium 100 mg Capsule PO ×2 (08:42→17:21)
[2021-03-26] MEDS: pantoprazole DR 40 mg Tablet PO (08:42)
[2021-03-26] MEDS: tamsulosin 0.4 mg Capsule PO (08:42)
[2021-03-26] MEDS: topiramate 100 mg Tablet 200 MG PO ×2 (08:42→17:21)
--- NOTE | 2021-03-26 09:00 | PC.NURSE ---
lauren from pharmacy called and said the vimpact tablets we have are 50mg. he said cutting it to get 10mg wouldn't be very accurate. he suggested we call his family and see if they can bring his home med. data analyst report writer attempted to call patient's to get home med brought in. no answer will try again.
--- NOTE | 2021-03-26 11:56 | PC.NURSE ---
attempted to call patient's 3 times to see if she will bring in patient's home med Vimpact. no answer and no way to leave message.
--- NOTE | 2021-03-26 12:56 | PC.NURSE ---
attempted to call patient's again for patient's home med vimpact dose
[2021-03-26] MEDS: lacosamide 50 mg Tablet 100 MG PO (13:47)
[2021-03-26] MEDS: cefTRIAXone 1,000 MG in sodium chloride 0.9% (plus) 50 ML 100 MG IV (13:47)
--- NOTE | 2021-03-26 15:48 | P.PN_ITS ---
Subjective Subjective: Interval history: Hospital course, labs appreciated. On examination today lying comfortably in bed, on room air. Asking when can he go home. Denies any nausea, vomiting, headache. AOx3. Fairly irritated that he is still in the hospital. Medications: Reviewed: Yes Vitals/I&O/Wt Last Vital Signs Temp 98.6 F 03/26/21 14:56 Pulse 82 03/26/21 15:08 Resp 18 03/26/21 15:01 BP 112/58 03/26/21 14:56 Pulse Ox 95 03/26/21 15:01 03/26/21 03/26/21 03/26/21 06:59 14:59 22:59 Intake Total 200 / 2290 410 / 410 Output Total 1050 / 1550 1225 / 1225 Balance -850 / 740 -815 / -815 Weight last 48 hrs Weight 72.393 kg Physical Exam Narrative: EXAM NARRATIVE: General : Chronically ill appearing, AOx3, in no acute distress, fairly irritated but not agitated HEENT : Grossly unremarkable CVS; NSR Chest: Non-labored respiration ABD; Non distended , no tenderness Ext: Mild B/L LE Edema Urinary Catheter Management^: Ordaz: Cath Placed During This Visit: yes Reason for Continuing Indwelling Catheter: Acute Urinary Retention or Obstruction Urinary Catheter Date of Insertion: 03/24/21 Urinary Catheter Time of Insertion: 22:46 Data : 03/25/21 06:10 03/25/21 06:10 Micro: Microbiology 03/24/21 14:56 Urine Culture - Final Urine,Clean Catch 03/24/21 16:23 Blood Culture - Preliminary Blood NEGATIVE TO DATE 03/24/21 15:50 Blood Culture - Preliminary Blood NEGATIVE TO DATE A&P Additional A&P Information Altered mental status: Resolved. Could be secondary to UTI versus possible breakthrough seizure. Urinary Tract infection you on admission concerning for UTI with 2+ bacteria, numerous WBCs and positive leukoesterase. Failed outpatient therapy. Blood cultures, urine cultures so far negative. Urine culture could be spuriously negative because of outpatient antibiotics. For now continue with ceftriaxone at 1 mg IV daily. We will plan to do at least 5-day course. Bladder outlet obstruction possible underlying BPH: CT abdomen pelvis results appreciated. Continue Ordaz catheterization. Patient will most likely need to be discharged on Ordaz catheter with follow-up with urology. Flomax 0.4 mg daily. Seizure with possible breakthrough Unsure of home medications. For now continue with topiramate 200 mg oral twice daily, lacosamide 100 mg twice daily. Aptiom - Ok to use pt home meds Seizure precautions. Chronic Obstructive Pulmonary Disease with mild exacerbation: DuoNebs every 6 hour, budesonide twice daily. Hold off on oral steroids for now. Currently on room air. Oxygen supplementation keeping saturation over 90%. COVID-19 PCR sent out on admission. Awaiting results. Isolation precautions for now. Obstructive Sleep Apnea * Continue CPAP at home settings Hypertension: Goal blood pressure less than 140/90 mmHg. Continue with amlodipine 10 mg oral daily. Additional Medical History * Lung cancer hx of L. Pneumonectomy * Dyslipidemia * Recurrant falls * Remote hx of multi-level compression fx * Gasteroesophageal reflux disease DVT ppx * Heparin 5000 units q8hr CODE STATUS: D/w patient and at bedside. Requested D.N.R Attestations Medical Necessity Statement*: Requires further hospitalization for management of UTI for failed outpatient oral therapy, altered mental status most likely because of UTI but cannot rule out breakthrough seizure. Time Spent in Patient Care: Greater than 35 minutes (>than 50% of time spent in counselling and/or direct pt care on unit) . Coding Level of Care Code Acute Bobbin Hauler for Tony Powers
--- NOTE | 2021-03-26 16:39 | PC.NURSE ---
patient's called and said patient takes 200mg Vimpat BID. Golf Course Architect notified Dr Li. Per Dr Li, increase order from 100mg BID to 200mg BID. publicity writer changed order.
[2021-03-26] MEDS: lacosamide 50 mg Tablet 200 MG PO (21:06)
[2021-03-26] MEDS: atorvastatin 40 mg Tablet PO (21:06)
[2021-03-27] VITALS (7 sets, daily range): BP systolic 147–158; BP diastolic 63–74; PULSE 56–75; RESP 18–28; TEMP 36.7–37.1; O2SAT 96–100
[2021-03-27] MEDS: heparin 5,000 unit/mL INJ 1 mL 5000 UNIT SUBCUT ×2 (04:16→12:25)
[2021-03-27] MEDS: aspirin 81 mg EC Tablet PO (05:47)
[2021-03-27] MEDS: docusate sodium 100 mg Capsule PO (07:49)
[2021-03-27] MEDS: pantoprazole DR 40 mg Tablet PO (07:50)
[2021-03-27] MEDS: pyridoxine 50 mg Tablet 100 MG PO (07:50)
[2021-03-27] MEDS: topiramate 100 mg Tablet 200 MG PO (07:50)
[2021-03-27] MEDS: amlodipine 10 mg Tablet PO (07:50)
[2021-03-27] MEDS: tamsulosin 0.4 mg Capsule PO (07:50)
[2021-03-27] MEDS: lacosamide 50 mg Tablet 200 MG PO (07:55)
[2021-03-27] MEDS: ipratropium-albuterol 3 mL Neb INHALATION ×2 (08:25→15:09)
[2021-03-27 08:47] LABS: Basophils # 0.1 10^3/uL (0.0-0.1); Basophils % 1.1 %; Eosinophils # 0.2 10^3/uL (0.0-0.8); Hematocrit 44.4 % (42.0-52.0); Hemoglobin 14.8 g/dL (11.7-16.6); Lymphocytes # 2.1 10^3/uL (0.8-4.8); Lymphocytes % 34.8 %; Mean Corpuscular HGB Conc 33.3 g/dL (30.0-36.0); Mean Corpuscular Hemoglobin 36.1 pg (28.0-34.0); Mean Corpuscular Volume 108.3 fl (80-94); Mean Platelet Volume 9.4 fL (7.4-10.4); Monocytes # 0.6 10^3/uL (0.2-0.9); Monocytes % 10.3 %; Neutrophils # 3.07 10^3/uL (1.8-7.7); Neutrophils % 50.3 %; Nucleated Red Blood Cells % 0 %; Platelet Count 202 10^3/cmm (130-400); Red Cell Distribution Width 12.4 % (12.1-15.1); White Blood Count 6.1 10^3/uL (4.0-10.0)
--- NOTE | 2021-03-27 12:05 | PM.DCS ---
Discharge Providers Date of Admission: 03/25/21 11:28 Date of Discharge: March 27, 2021 Attending Provider at Admission: Lazara Escudero Attending Provider at Discharge: Bruno Li MD Primary Care Provider: Laith Rasheed MD Reason for Visit Reason for Visit: AMS Hospital Course Hospital Course 80-year-old male with a past medical history significant for degenerative disorder, chronic obstructive pulmonary disease, obstructive sleep apnea on CPAP, hyperlipidemia, hypertension, gastroesophageal reflux disease, recurrent falls with hx of multilevel compression fractures (T4,T10,T11,T12), lung cancer with hx of left sided pneumonectomy, CVA (right caudate body), and seizure disorder who is presenting to ER with weakness. Per who provided history patient had slipped out of the chair to the ground when attempting to ambulate. He is at baseline using a walker however majority of the time in a wheelchair. Has been getting weaker since recent dx of UTI. He was seen by pcp and started on Ciprofloxacin + Diflucan. She was not able to get him up so EMS was called. On arrival patient appeared to have mild respiratory distress which patients states is close to his baseline. He is on proair at home which he was able to use. Did not require supplemental o2. Denied fever or chills. Noted increase frequency of urination due to sensation of incomplete voiding. Previously had a similar issue requiring velez however can not recall if any prostate issues were diagnosed. Has not been on flomax in the past. During fall earlier denied any LOC, seizure like activity, or head trauma. Most recent breakthrough seizure was 2 weeks prior. Lab workup on arrival showed a WBC of 7.8, hemoglobin of 13.1, hematocrit 38.5 and a platelet count of 215. Sodium 136, potassium 4.1, chloride 101, bicarb 24, BUN 26 and creatinine of 0.9. Lactic acid of 1.2. Calcium of 8.1. AST of 61, ALT of 49 and alkaline phosphatase of 78. Creatinine kinase of 452. Troponin T baseline of 31. COVID19 ag negative, PCR pending and UA showed 2+ leukocyte esterase, numerous WBC, 2+ bacteria , Imaging studies included a head CT without contrast which did not show any evidence of acute intracranial abnormality. Chest x-ray which also did not show any acute cardiopulmonary abnormality. CT abdomen/pelvis showed over distended bladder with diverticula, imaging appearance is suggestive of chronic outlet obstruction or bladder dysmotility. 4 mm bladder stone.Velez cath was ordered. Patient went to the hospital for further management of altered mental status which is most likely secondary to UTI and acute kidney injury. CT abdomen imaging revealed urinary obstruction for which Velez catheter was placed. Patient was started on broad-spectrum antibiotics with IV ceftriaxone to which she responded well. He did back to his baseline mentation for next 48 hours. On admission patient was found to be in mild respiratory distress which is believed to be secondary to COPD exacerbation. He was treated with nebulization and never required any oral steroids. He was continued on home dose of CPAP. Possible breakthrough seizures were also entertained. He was put on seizure precaution continued on his home oral antiseizure medications. Patient did not have any seizure activity during hospitalization. COVID-19 the patient has remained on room air for last 48 hours without any treatment. Imagings were negative for any signs of pneumonia. During hospitalization he was found to have elevated blood pressures for which his antihypertensives were adjusted. He is currently on amlodipine 10 mg and losartan 25 mg daily. Patient is advised to continue isolation precautions till COVID-19 results are back. He is being discharged in hemodynamically stable condition on oral antibiotics for 3 more days with advised to follow-up with primary care provider within next. He is advised to maintain a blood pressure diary at home and follow-up with his primary care provider for further adjustment of antihypertensives. Physical Exam Narrative: EXAM NARRATIVE: General : Chronically ill appearing, AOx3, in no acute distress, fairly irritated but not agitated HEENT : Grossly unremarkable CVS; NSR Chest: Non-labored respiration ABD; Non distended , no tenderness Ext: Mild B/L LE Edema Urinary Catheter Management^: Velez: Cath Placed During This Visit: yes Reason for Continuing Indwelling Catheter: Acute Urinary Retention or Obstruction Urinary Catheter Date of Insertion: 03/24/21 Urinary Catheter Time of Insertion: 22:46 Discharge Data Data Completed and Pending: Completed Studies During Hospitalization Category Date Time Status CT abdomen pelvis w con* [id number] Urge nt Cat Scan 03/24/21 16:[address] head wo con* [id number] Urgent Cat Scan 03/24/21 14:07 Completed X[place] chest 1[place] [id number] Urgent Exams 03/24/21 14:07 Completed Pending at discharge Category Date Time Status Blood Culture Sta t Lab 03/24/21 16:23 Results Comprehensive Met abolic Panel Routi ne Lab 03/27/21 07:37 Ordered Coronavirus Test [facility] ne Lab 03/24/21 14:56 Received Venous Blood Gas Stat Lab 03/24/21 14:43 Results Labs from last 24 hours 03/27/21 03/27/21 08:36 07:37 WBC 6.1 RBC 4.10 Hgb 14.8 Hct 44.4 MCV 108.3 H MCH 36.1 H MCHC 33.3 RDW 12.4 Plt Count 202 MPV 9.4 Neut % (Auto) 50.3 Lymph % (Auto) 34.8 Angelina % (Auto) 10.3 Eos % (Auto) 3.0 Baso % (Auto) 1.1 Neut # (Auto) 3.07 Lymph # (Auto) 2.1 Angelina # (Auto) 0.6 Eos # (Auto) 0.2 Baso # (Auto) 0.1 Nucleated RBC % (a uto) 0 Nucleated RBCs # 0.0 Sodium Pending Potassium Pending Chloride Pending Carbon Dioxide Pending Anion Gap Pending BUN Pending Creatinine Pending GFR Calculation Pending Glucose Pending Calculated Osmolal ity Pending Calcium Pending Total Bilirubin Pending AST Pending ALT Pending Alkaline Phosphata se Pending Total Protein Pending Albumin Pending Globulin Pending Addt'l Data from Hospital Stay: Laboratory Results WBC 6.1 10^3/uL (4.0- 10.0) 03/27/21 08:36 RBC 4.10 10^6/uL (4.1 -5.3) 03/27/21 08:36 Hgb 14.8 g/dL (11.7-1 6.6) 03/27/21 08:36 Hct 44.4 % (42.0-52.0 ) 03/27/21 08:36 MCV 108.3 fl (80-94) H 03/27/21 08:36 MCH 36.1 pg (28.0-34. 0) H 03/27/21 08:36 MCHC 33.3 g/dL (30.0-3 6.0) 03/27/21 08:36 RDW 12.4 % (12.1-15.1 ) 03/27/21 08:36 Plt Count 202 10^3/cmm (130 -400) 03/27/21 08:36 MPV 9.4 fL (7.4-10.4) 03/27/21 08:36 Neut % (Auto) 50.3 % 03/27/21 08:36 Lymph % (Auto) 34.8 % 03/27/21 08:36 Angelina % (Auto) 10.3 % 03/27/21 08:36 Eos % (Auto) 3.0 % 03/27/21 08:36 Baso % (Auto) 1.1 % 03/27/21 08:36 Neut # (Auto) 3.07 10^3/uL (1.8 -7.7) 03/27/21 08:36 Lymph # (Auto) 2.1 10^3/uL (0.8- 4.8) 03/27/21 08:36 Angelina # (Auto) 0.6 10^3/uL (0.2- 0.9) 03/27/21 08:36 Eos # (Auto) 0.2 10^3/uL (0.0- 0.8) 03/27/21 08:36 Baso # (Auto) 0.1 10^3/uL (0.0- 0.1) 03/27/21 08:36 Nucleated RBC % (a uto) 0 % 03/27/21 08:36 Nucleated RBCs # 0.0 /100WBC 03/27/21 08:36 Specimen Type Venous 03/24/21 14:43 Wali Test Pos 03/24/21 14:43 O2 Delivery Device Room air 03/24/21 14:43 FiO2 21.0 % 03/24/21 14:43 Post Framer ID Monro 03/24/21 14:43 Sodium 133 mmol/L (136-1 45) L 03/25/21 06:10 Potassium 4.3 mmol/L (3.5-5 .1) 03/25/21 06:10 Chloride 100 mmol/L (98-10 7) 03/25/21 06:10 Carbon Dioxide 23 mmol/L (22-29) 03/25/21 06:10 Anion Gap 14.3 (5-19) 03/25/21 06:10 BUN 18 mg/dL (8-23) 03/25/21 06:10 Creatinine 0.8 mg/dL (0.7-1. 2) 03/25/21 06:10 GFR Calculation Not Reportable 03/25/21 06:10 Glucose 113 mg/dL (65-115 ) 03/25/21 06:10 Calculated Osmolal ity 279 mOsm/kg (285- 295) L 03/25/21 06:10 Lactic Acid 0.9 mmol/L (0.5-2 .2) 03/25/21 06:10 Lactate 1.2 mmol/L (0.5-2 .2) 03/24/21 14:56 Calcium 8.3 mg/dL (8.5-10 .5) L 03/25/21 06:10 Total Bilirubin 0.2 mg/dL (0.15-1 .2) 03/25/21 06:10 AST 53 U/L (0-40) H 03/25/21 06:10 ALT 41 U/L (0-41) 03/25/21 06:10 Alkaline Phosphata se 72 IU/L (40-130) 03/25/21 06:10 Ammonia 31 umol/L (16-60) 03/24/21 19:19 Creatine Kinase 452 U/L (39-308) H* 03/24/21 14:56 Troponin T Baselin e 31 ng/L (0-15) H 03/24/21 14:56 Total Protein 5.5 g/dL (6.6-8.7 ) L 03/25/21 06:10 Albumin 2.9 g/dL (3.5-5.2 ) L 03/25/21 06:10 Globulin 2.6 g/dL (1.3-4.6 ) 03/25/21 06:10 Lipase 28 U/L (13-60) 03/24/21 14:56 Procalcitonin 0.18 ng/mL (0-0.5 ) 03/25/21 06:10 Urine Color Yellow (Yellow) 03/24/21 14:56 Urine Appearance Cloudy (CLEAR) 03/24/21 14:56 Urine pH 5 (5-7) 03/24/21 14:56 Ur Specific Gravit y 1.020 (1.005-1.0 30) 03/24/21 14:56 Urine Protein 1+ (Negative) H 03/24/21 14:56 Urine Glucose (UA) Norm (Normal) 03/24/21 14:56 Urine Ketones Negative (Negati ve) 03/24/21 14:56 Urine Blood 3+ (Negative) H 03/24/21 14:56 Urine Nitrate Negative (Negati ve) 03/24/21 14:56 Urine Bilirubin Neg (Negative) 03/24/21 14:56 Urine Urobilinogen Norm mg/dL (Negat aly) 03/24/21 14:56 Ur Leukocyte Renita ase 2+ (Negative) H 03/24/21 14:56 Urine RBC None /hpf (0-2) 03/24/21 14:56 Urine WBC Too numerous to c nt /hpf (0-5) H 03/24/21 14:56 Ur Squamous Epith Cells None /hpf (0-5) 03/24/21 14:56 Amorphous Sediment Not Reportable 03/24/21 14:56 Urine Bacteria 2+ /hpf (NONE) H 03/24/21 14:56 SARS-CoV-2 Ag (Rap id) Negative (Negati ve) 03/24/21 14:56 Impressions Chest X-Ray 03/24/21 14:07 IMPRESSION: No acute findings. Head CT 03/24/21 14:07 IMPRESSION: 1. No acute intracranial abnormality. 2. Moderate diffuse cerebral atrophy and sequela of chronic small vessel ischemic disease. Radiation Dose CTDIVOL = (mGy): DLP = 783.87 (mGy-cm) Abdomen/Pelvis CT 03/24/21 16:16 IMPRESSION: Over distended bladder with diverticula, imaging appearance is suggestive of chronic outlet obstruction or bladder dysmotility. 4 mm bladder stone. Radiation Dose CTDIVOL = (mGy): DLP = 1256.71 (mGy-cm) Vitals: Last Vital Signs Temp 98.0 F 03/27/21 11:20 Pulse 75 03/27/21 11:20 Resp 28 H 03/27/21 11:20 BP 147/74 03/27/21 11:20 Pulse Ox 100 03/27/21 11:20 Discharge Plan Discharge Patient Disposition: Home Condition: Stable Prescriptions: New losartan 50 mg Tablet 25 mg PO DAILY 30 Days Qty: 30 RF: 0 tamsulosin 0.4 mg Capsule 0.4 mg PO DAILY 30 Days Qty: 30 RF: 0 amlodipine 10 mg Tablet 10 mg PO DAILY 30 Days Qty: 30 RF: 0 Keflex 750 mg capsule 750 mg PO Q12H 4 Days Qty: 8 RF: 0 Continued topiramate 200 mg Tablet 200 mg PO BID RF: 0 multivitamin Tablet 1 tab PO QAM RF: 0 aspirin [Aspirin Low Dose] 81 mg Tablet,Delayed Release (Dr/Ec) 81 mg PO QAM RF: 0 potassium chloride 20 mEq/15 mL Liquid 7.5 meq PO QAM RF: 0 eslicarbazepine 400 mg Tablet 400 mg PO QAM RF: 0 simvastatin 80 mg Tablet 80 mg PO BEDTIME RF: 0 Vitamin B-6 100 mg Tablet 100 mg PO DAILY RF: 0 ProAir HFA 90 mcg/actuation Hfa Aerosol Inhaler 2 puff inhalation Q4H PRN (Reason: Shortness Of Breath) RF: 0 lacosamide 200 mg Tablet 200 mg PO BID RF: 0 Pepcid 20 mg Tablet 20 mg PO BID RF: 0 Discontinued fluconazole 150 mg tablet 150 mg PO DAILY RF: 0 ciprofloxacin HCl 250 mg tablet 500 mg PO BID RF: 0 amlodipine 2.5 mg Tablet 2.5 mg PO QAM RF: 0 Discharge Orders: Discharge Order (Routine); Ordered 03/27/21 Ordered By: Bruno Li Referrals: Laith Rasheed MD [Primary Care Provider] - 2 weeks Anthony Obrien MD [Physician] - 7-10 days (Urinary obstruction because of BPH. Velez catheterized March 23.) Discharge Diet: Cardiac Discharge Activity: Resume usual activity Patient Instructions: Opioid Safety Activity Restrictions/Additional Instructions: Please follow-up with your primary care provider within next 2 weeks. Please maintain a blood pressure diary at home and follow-up with a primary care provider for further adjustment of antihypertensives. You should check your blood pressure twice daily and write down a diary. Discharge Attestations Time Spent in Discharge Care*: greater than 30 min Specific Discharge Activities: educating patient, educating and/or supporting family/caregiver, discussing with major case detective/social workers/dc planners, documenting/other paperwork and evaluating patient/reviewing data Status at Discharge: Cognitive status at discharge: cognitively intact, Behavioral status at discharge: cooperative, Functional status at discharge: independent ambulation Overall status at discharge: patient is back to baseline Quality Metrics Clinical Quality Measures During this hospital stay, did patient experience: None Coding Level of Care Code Acute Chg FW DC note
[2021-03-27] MEDS: losartan 50 mg Tablet 25 MG PO (12:24)
[2021-03-27] MEDS: cefTRIAXone 1,000 MG in sodium chloride 0.9% (plus) 50 ML 100 MG IV (12:46)
--- NOTE | 2021-03-27 12:47 | PC.NURSE ---
Rcvd verbal order from Dr Li to administer Rocephin at [phone]. also patient is to be discharged with velez catheter.
[2021-03-27 13:12] LABS: Alanine Aminotransferase 37 U/L (0-41); Albumin Level 3.3 g/dL (3.5-5.2); Alkaline Phosphatase 87 IU/L (40-130); Anion Gap 18.5 (5-19); Aspartate Amino Transferase 34 U/L (0-40); Blood Urea Nitrogen 11 mg/dL (8-23); Calcium 8.6 mg/dL (8.5-10.5); Carbon Dioxide 20 mmol/L (22-29); Chloride 98 mmol/L (98-107); Globulin 3.6 g/dL (1.3-4.6); Glucose 97 mg/dL (65-115); Osmolality Calculated 275 mOsm/kg (285-295); Potassium 3.5 mmol/L (3.5-5.1); Sodium 133 mmol/L (136-145); Total Bilirubin 0.3 mg/dL (0.15-1.2); Total Protein 6.9 g/dL (6.6-8.7)
--- NOTE | 2021-03-27 13:51 | PC.NURSE ---
Discharge instructions given to patient and patient verbalized understanding. patient's called and said she will bring patient clothes. home med from [facility] given to patient to take home.
--- NOTE | 2021-03-27 13:58 | PC.NURSE ---
YOVANNY faxed to [facility]
--- NOTE | 2021-03-27 15:16 | PC.NURSE ---
discharge instructions given to patient's and teaching on catheter leg bag. patient's [facility] [place].
--- NOTE | 2021-03-27 15:18 | PC.NURSE ---
Sent Dr Li request to send meds to [facility] instead of [facility].
--- NOTE | 2021-03-27 15:38 | PC.NURSE ---
called meds to [facility] and spoke with Mira. Muffler Mechanic then notified patient's .
[2021-03-27 16:02] LABS: Coronavirus Test Green County Not Detected
[2021-03-27 17:44] LABS: Base Excess VBG -1.5 mmol/L (-3.0-3.0); HCO3 VBG 24.9 mmol/L (24-28); PCO2 VBG 47.8 mmHg (41-51); PO2 VBG 30.5 mmHg (25-40); Venous Blood Gas Hematocrit 7.3 % (42-52); pH VBG 7.33 (7.32-7.42)
--- NOTE | 2021-03-28 13:24 | PC.SOCIAL ---
discharge follow up call made. follow up appointments with Dr. Obrien and Dr. Simmons made and patients spouse aware of. [facility] [place] and spoke to Dr[facility] Maria Victoria Prescott's nurse. She had sent the order for HH to the physician and was waiting for approval. Will call back tomorrow to follow up. I will also let Susy, with [facility] know what is going on with the [facility] approval.
== END 2021-03-27 15:41 | disposition home or self-care (01) ==
LOC: ER 14:25 → ER IP 16:47 → MEDSURG 03-26 07:40 → MS 2A 03-28 09:10
PROVIDERS: Family Medicine; Student in an Organized Health Care Education/Training Program; Admitting Provider Hospitalist; Emergency Provider Emergency Medicine; Visit Provider Hospitalist
DX: N39.0 Urinary tract infection, site not specified (principal); J44.9 Chronic obstructive pulmonary disease, unspecified; G47.33 Obstructive sleep apnea (adult) (pediatric); E78.5 Hyperlipidemia, unspecified; I10 Essential (primary) hypertension; K21.9 Gastro-esophageal reflux disease without esophagitis; Z91.81 History of falling; Z85.118 Personal history of other malignant neoplasm of bronchus and lung; Z90.2 Acquired absence of lung [part of]; Z86.73 Personal history of transient ischemic attack (TIA), and cerebral infarction without residual deficits; N40.1 Benign prostatic hyperplasia with lower urinary tract symptoms; N13.8 Other obstructive and reflux uropathy; M19.90 Unspecified osteoarthritis, unspecified site; Z87.891 Personal history of nicotine dependence
CPT/HCPCS: 36415; 51702; 70450; 71045; 74177; 80053; 81001; 82140; 82550; 82803; 83605; 83690; 84145; 84484; 85025; 87040; 87086; 87426; 87635; 93005; 94640; 96361; 96365; 96367; 96372; 97110; 97116; 97162; 97530; 99285; G0378; J0696; J1644; J3370; J3535; J7030; J7040; J7050; J7512; Q9967

== ENCOUNTER 2021-04-06 13:54 | Emergency (ER) | payer OTHER, MEDICARE, SELFPAY ==
--- NOTE | 2021-04-06 14:02 | XR_ITS ---
WS: [id number] XR chest 1V portable [id number] REASON FOR EXAM: weakness FINDINGS: Complete opacification of the left hemithorax with large pleural calcification. No active pulmonary parenchymal or pleural disease in the right lung. The chest is unchanged compared to 03/24/2021. XR/XR chest 1V portable [id number] IMPRESSION: Presumed previous left pneumonectomy. No acute pulmonary abnormality identified.
--- NOTE | 2021-04-06 14:03 | ECG_ITS ---
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 Measurements Intervals [place] Rate: 73 P: 40 NE: 224 QRS: -46 QRSD: 101 T: 72 QT: 370 QTc: 408 Interpretive Statements SINUS RHYTHM WITH FIRST DEGREE AV BLOCK LEFT AXIS DEVIATION [QRS AXIS < -30] VOLTAGE CRITERIA FOR LVH [MEETS CRITERIA IN ONE OF: R(aVL), S(V1), R(V5), R(V5/V6)+S(V1)] POSSIBLE ANTEROSEPTAL MYOCARDIAL INFARCTION , OF INDETERMINATE AGE [30 ms Q WAVE IN V1-V4] Compared to ECG 03/24/2021 18:34:23 Left-axis deviation now present Left anterior fascicular block no longer present ST (T wave) deviation no longer present Myocardial infarct finding still present Electronically Signed On 04-06-2021 18:25:11 CDT by Sally Ely M.D. [id number]
[2021-04-06 14:06] VITALS: BP 133/66; PULSE 73; RESP 20; TEMP 36.7; O2SAT 100; BMI 23.5
[2021-04-06 14:24] LABS: Basophils # 0.1 10^3/uL (0.0-0.1); Basophils % 0.6 %; Eosinophils # 0.1 10^3/uL (0.0-0.8); Eosinophils % 1.1 %; Hematocrit 39.1 % (42.0-52.0); Hemoglobin 13.2 g/dL (11.7-16.6); Lymphocytes # 3.4 10^3/uL (0.8-4.8); Lymphocytes % 43.2 %; Mean Corpuscular HGB Conc 33.8 g/dL (30.0-36.0); Mean Corpuscular Hemoglobin 35.8 pg (28.0-34.0); Mean Platelet Volume 9.6 fL (7.4-10.4); Monocytes # 0.8 10^3/uL (0.2-0.9); Monocytes % 9.9 %; Neutrophils # 3.51 10^3/uL (1.8-7.7); Neutrophils % 44.9 %; Nucleated Red Blood Cells % 0 %; Platelet Count 227 10^3/cmm (130-400); Red Blood Count 3.69 10^6/uL (4.1-5.3); Red Cell Distribution Width 12.7 % (12.1-15.1); White Blood Count 7.8 10^3/uL (4.0-10.0)
--- NOTE | 2021-04-06 14:36 | W.ED.GENADLT ---
HPI - General Adult General: Chief complaint: General Medical Stated complaint: AMS/UTI Time Seen by Provider: 04/06/21 14:02 History of Present Illness: HPI narrative: Patient is an 81-year-old male with a past medical history of dementia urinary retention. He was hospitalized for an acute kidney injury due to obstruction earlier in the month he also had elevated troponin. He was discharged on a catheter was told to follow-up this month with urology. Has been using the same catheter. His home nurse noticed that he had leakage and some discharge around the catheter site. They were told to come to emergency department for further evaluation. He has not had any fevers chest pain shortness of breath nausea vomiting diarrhea altered mental status syncope no abdominal pain. He is at his baseline mentally according to his and medical staff that knows him MD complaint: Patient is a 81-year-old male with a past medical history of dementia Review of Systems General: Reports: 10 or more systems reviewed and unremarkable except in HPI and below PFSH ED PFSH: Medical History DJD (degenerative joint disease) GERD (gastroesophageal reflux disease) History of lung cancer Seizure disorder Surgical History History of pneumonectomy Social History Smoking and tobacco status: former smoker Alcohol intake: never Physical Exam Const: COMMON NORMALS: no acute distress, average body habitus, patient oriented x3, no limitations, healthy appearing, alert and well nourished HENMT: COMMON NORMALS: normocephalic, atraumatic, hearing grossly normal bilaterally, external ears normal, EAC's normal, TM's normal bilaterally, Normal external nose present, Normal nasal mucous membranes and turbinates present, moist oral mucous membranes, oropharynx normal, dentition normal and gingiva normal HEAD & SCALP: normocephalic and atraumatic NOSE: Normal external nose present and Normal nasal mucous membranes and turbinates present EXTERNAL EAR: Yes external ears normal EXTERNAL AUDITORY CANAL: EAC's normal TYMPANIC MEMBRANE: TM's normal bilaterally Eye: COMMON NORMALS: Equal, round and reactive pupils present and EOMs intact bilaterally PUPIL: Yes Equal, round and reactive pupils present Neck/C-Spine: COMMON NORMALS: no JVD Resp: COMMON NORMALS: normal respiratory effort, No retractions, No use of accessory muscles, clear to auscultation bilaterally and percussion normal AUSCULTATION: clear to auscultation bilaterally PERCUSSION: percussion normal Cardio: COMMON NORMALS: no JVD, regular rate, regular rhythm, S1 normal heart sound present, S2 normal heart sound present, No gallops present (Cardio), No clicks present (Cardio), No murmurs present (Cardio), No rub (Cardio) and Peripheral pulses 2+ throughout RATE: regular rate RHYTHM: regular rhythm HEART SOUNDS: S1 normal heart sound present and S2 normal heart sound present PERIPHERAL PULSES: Peripheral pulses 2+ throughout GI: COMMON NORMALS: Normal to inspection, nondistended, normoactive bowel sounds present, Soft to palpation, non-tender, No hepatosplenomegaly present, no masses and no bruits PALPATION: Yes Soft to palpation, Yes No hepatosplenomegaly present and No Bladder palpation abnormal : COMMON NORMALS: Yes no CVA tenderness, Yes normal external exam, Yes scrotum normal and Yes no scrotal swelling BLADDER/KIDNEY EXAM: Yes catheter in place Catheter type (Male): urethral, Yes no CVA tenderness and No Bladder palpation abnormal PENIS: normal penis and other (No discharge induration mildly erythemic around the introitus) Back/Pelvis: COMMON NORMALS: no CVA tenderness and thoracic and lumbar spine normal to inspection Extremity: COMMON NORMALS: normal to inspection, full ROM, capillary refill normal, no joint enlargement, no clubbing, cyanosis or edema, no calf tenderness and no pedal edema Neuro: COMMON NORMALS: patient oriented x3, CN's II-XII intact bilaterally, moves all extremities, no focal motor deficits, no sensory deficits noted, deep tendon reflexes 2+ bilaterally and gait normal SENSORIUM/ORIENTATION: Yes alert Psych: COMMON NORMALS: mental status grossly normal, Normal thought process present, cooperative, normal affect, speech normal, activity/motor behavior normal, denies hallucinations, denies homicidal ideation and denies suicidal ideation SPEECH: Yes normal speech THOUGHT PROCESS: Normal thought process present Skin: COMMON NORMALS: no rashes or lesions noted, no wounds, turgor normal, no jaundice, no petechiae and no mottling GENERAL SKIN EXAM: no rashes or lesions noted and turgor normal Course ED course: Patient had 2 - troponins. Did have some evidence of possible urinary tract infection. As noted above I believe the risk of a failed Ordaz attempt considering his previous history would be worse than the benefits of changing his Ordaz's will go ahead and treat him with antibiotics. We will send him home on Cipro he is well-appearing nontoxic no signs of systemic infection or sepsis we will have him follow with PCP and urology Vital Signs: Vital signs: Vital Signs Temperature 98.1 F 04/06/21 16:08 Pulse Rate 74 04/06/21 16:08 Respiratory Rate 18 04/06/21 16:08 Blood Pressure 146/64 04/06/21 16:08 Pulse Oximetry 99 04/06/21 16:08 MDM - General Adult MDM Narrative: Medical decision making narrative: Patient is a 81-year-old male here with urinary symptoms Patient is awake alert oriented to name and place at his mental baseline. Vital signs are normal is not in any respiratory distress. Seems that issue is mostly concerns about his catheter. Looking through chart review talk to his nurse he had a very difficult catheterization last time. Unless he has systemic issues probably the risks of removing and reinserting the catheter are greater than then the benefits we will go ahead and treat him with antibiotics if he does have an infection if he does have a significant leukocytosis or lactic acidosis will certainly have to consider admission for this. EKG performed 1450 sinus rhythm first-degree AV block left axis deviation and rate 73 intervals normal no evidence of ischemia or infarct Lab Data: Labs: Lab Results 04/06/21 04/06/21 04/06/21 Range/Units 14:00 14:00 14:00 WBC 7.8 (4.0-10.0) 10^3/ uL RBC 3.69 L (4.1-5.3) 10^6/u L Hgb 13.2 (11.7-16.6) g/dL Hct 39.1 L (42.0-52.0) % MCV 106.0 H (80-94) fl MCH 35.8 H (28.0-34.0) pg MCHC 33.8 (30.0-36.0) g/dL RDW 12.7 (12.1-15.1) % Plt Count 227 (130-400) 10^3/c mm MPV 9.6 (7.4-10.4) fL Neut % (Auto) 44.9 % Lymph % (Auto) 43.2 % Villalba % (Auto) 9.9 % Eos % (Auto) 1.1 % Baso % (Auto) 0.6 % Neut # (Auto) 3.51 (1.8-7.7) 10^3/u L Lymph # (Auto) 3.4 (0.8-4.8) 10^3/u L Villalba # (Auto) 0.8 (0.2-0.9) 10^3/u L Eos # (Auto) 0.1 (0.0-0.8) 10^3/u L Baso # (Auto) 0.1 (0.0-0.1) 10^3/u L Nucleated RBC % (a uto) 0 % Nucleated RBCs # 0.0 /100WBC Sodium 134 L (136-145) mmol/L Potassium 4.5 (3.5-5.1) mmol/L Chloride 100 (98-107) mmol/L Carbon Dioxide 24 (22-29) mmol/L Anion Gap 14.5 (5-19) BUN 18 (8-23) mg/dL Creatinine 0.9 (0.7-1.2) mg/dL GFR Calculation Not Reportable Glucose 96 (65-115) mg/dL Calculated Osmolal ity 280 L (285-295) mOsm/k g Lactate 1.3 (0.5-2.2) mmol/L Calcium 8.6 (8.5-10.5) mg/dL Magnesium 2.0 (1.7-2.3) mg/dL Total Bilirubin 0.2 (0.15-1.2) mg/dL AST 27 (0-40) U/L ALT 21 (0-41) U/L Alkaline Phosphata se 92 (40-130) IU/L Troponin T Baselin e (0-15) ng/L Troponin T 120 Min augustine (0-15) ng/L Delta Troponin T (0-10) ABS# Total Protein 6.2 L (6.6-8.7) g/dL Albumin 3.6 (3.5-5.2) g/dL Globulin 2.6 (1.3-4.6) g/dL Urine Color (Yellow) Urine Appearance (CLEAR) Urine pH (5-7) Ur Specific Gravit y (1.005-1.030) Urine Protein (Negative) Urine Glucose (UA) (Normal) Urine Ketones (Negative) Urine Blood (Negative) Urine Nitrate (Negative) Urine Bilirubin (Negative) Urine Urobilinogen (Negative) mg/dL Ur Leukocyte Renita ase (Negative) Urine RBC (0-2) /hpf Urine WBC (0-5) /hpf Ur Squamous Epith Cells (0-5) /hpf Amorphous Sediment Urine Bacteria (NONE) /hpf Urine Mucus /hpf 04/06/21 04/06/21 04/06/21 Range/Units 14:00 14:30 15:52 WBC (4.0-10.0) 10^3/ uL RBC (4.1-5.3) 10^6/u L Hgb (11.7-16.6) g/dL Hct (42.0-52.0) % MCV (80-94) fl MCH (28.0-34.0) pg MCHC (30.0-36.0) g/dL RDW (12.1-15.1) % Plt Count (130-400) 10^3/c mm MPV (7.4-10.4) fL Neut % (Auto) % Lymph % (Auto) % Villalba % (Auto) % Eos % (Auto) % Baso % (Auto) % Neut # (Auto) (1.8-7.7) 10^3/u L Lymph # (Auto) (0.8-4.8) 10^3/u L Villalba # (Auto) (0.2-0.9) 10^3/u L Eos # (Auto) (0.0-0.8) 10^3/u L Baso # (Auto) (0.0-0.1) 10^3/u L Nucleated RBC % (a uto) % Nucleated RBCs # /100WBC Sodium (136-145) mmol/L Potassium (3.5-5.1) mmol/L Chloride (98-107) mmol/L Carbon Dioxide (22-29) mmol/L Anion Gap (5-19) BUN (8-23) mg/dL Creatinine (0.7-1.2) mg/dL GFR Calculation Glucose (65-115) mg/dL Calculated Osmolal ity (285-295) mOsm/k g Lactate (0.5-2.2) mmol/L Calcium (8.5-10.5) mg/dL Magnesium (1.7-2.3) mg/dL Total Bilirubin (0.15-1.2) mg/dL AST (0-40) U/L ALT (0-41) U/L Alkaline Phosphata se (40-130) IU/L Troponin T Baselin e 48 H (0-15) ng/L Troponin T 120 Min augustine 47.50 H (0-15) ng/L Delta Troponin T -0.50 L (0-10) ABS# Total Protein (6.6-8.7) g/dL Albumin (3.5-5.2) g/dL Globulin (1.3-4.6) g/dL Urine Color Yellow (Yellow) Urine Appearance Hazy A (CLEAR) Urine pH 7 (5-7) Ur Specific Gravit y 1.010 (1.005-1.030) Urine Protein Neg (Negative) Urine Glucose (UA) Norm (Normal) Urine Ketones 1+ H (Negative) Urine Blood Neg (Negative) Urine Nitrate Negative (Negative) Urine Bilirubin Neg (Negative) Urine Urobilinogen Norm (Negative) mg/dL Ur Leukocyte Renita ase Trace H (Negative) Urine RBC 0-4 H (0-2) /hpf Urine WBC 5-10 H (0-5) /hpf Ur Squamous Epith Cells 0-4 H (0-5) /hpf Amorphous Sediment Not Reportable Urine Bacteria Trace (NONE) /hpf Urine Mucus 1+ /hpf Discharge Plan Discharge Patient Disposition: Home Clinical Impression: Acute UTI Condition: Stable Prescriptions: New ciprofloxacin HCl 500 mg tablet 500 mg PO BID Qty: 20 RF: 0 No Action topiramate 200 mg Tablet 200 mg PO BID RF: 0 multivitamin Tablet 1 tab PO QAM RF: 0 aspirin [Aspirin Low Dose] 81 mg Tablet,Delayed Release (Dr/Ec) 81 mg PO QAM RF: 0 potassium chloride 20 mEq/15 mL Liquid 7.5 meq PO QAM RF: 0 eslicarbazepine 400 mg Tablet 400 mg PO QAM RF: 0 simvastatin 80 mg Tablet 80 mg PO BEDTIME RF: 0 pyridoxine (vitamin B6) [Vitamin B-6] 100 mg Tablet 100 mg PO DAILY RF: 0 albuterol sulfate [ProAir HFA] 90 mcg/actuation Hfa Aerosol Inhaler 2 puff inhalation Q4H PRN (Reason: Shortness Of Breath) RF: 0 lacosamide 200 mg Tablet 200 mg PO BID RF: 0 famotidine [Pepcid] 20 mg Tablet 20 mg PO BID RF: 0 losartan 50 mg Tablet 25 mg PO DAILY 30 Days Qty: 30 RF: 0 tamsulosin 0.4 mg Capsule 0.4 mg PO DAILY 30 Days Qty: 30 RF: 0 amlodipine 10 mg Tablet 10 mg PO DAILY 30 Days Qty: 30 RF: 0 Discharge Orders: Discharge ED (Routine); Ordered 04/06/21 Ordered By: Rishabh Gutierrez Referrals: Laith Rasheed MD [Primary Care Provider] - Patient Instructions: Urinary Tract Infection in Men (ED), Ordaz Catheter Placement and Care (ED) Activity Restrictions/Additional Instructions: Take medication as prescribed. Clean the Ordaz site as directed. Follow-up with your primary care provider in 3 to 5 days and with your urologist as scheduled. Return the emergency department with any new or worsening symptoms Coding Level of Care Code ED Pot Holder Binder for Tony Fwd Exam Comprehensive
[2021-04-06 14:45] LABS: Alanine Aminotransferase 21 U/L (0-41); Albumin Level 3.6 g/dL (3.5-5.2); Alkaline Phosphatase 92 IU/L (40-130); Anion Gap 14.5 (5-19); Aspartate Amino Transferase 27 U/L (0-40); Blood Urea Nitrogen 18 mg/dL (8-23); Calcium 8.6 mg/dL (8.5-10.5); Carbon Dioxide 24 mmol/L (22-29); Chloride 100 mmol/L (98-107); Creatinine Clr Calc Pharmacy 58.8258; Globulin 2.6 g/dL (1.3-4.6); Glucose 96 mg/dL (65-115); Osmolality Calculated 280 mOsm/kg (285-295); Potassium 4.5 mmol/L (3.5-5.1); Sodium 134 mmol/L (136-145); Total Bilirubin 0.2 mg/dL (0.15-1.2); Total Protein 6.2 g/dL (6.6-8.7)
[2021-04-06 14:54] VITALS: BP 128/74; PULSE 72; RESP 18; TEMP 36.6; O2SAT 98
[2021-04-06 14:54] LABS: Troponin(5th) Baseline 48 ng/L (0-15)
[2021-04-06 15:03] LABS: Lactate (Lactic Acid level) 1.3 mmol/L (0.5-2.2)
[2021-04-06 15:33] LABS: Add Urine Microscopic? YES; Bilirubin Urine Neg (Negative); Blood Urine Neg (Negative); Glucose Urine UA Norm (Normal); Ketones Urine 1+ (Negative); Leukocyte Esterase Urine Trace (Negative); Nitrate Urine Negative (Negative); Protein Urine Neg (Negative); Urine Appearance Hazy (CLEAR); Urine Color Yellow (Yellow); Urobilinogen Urine Norm (Negative); pH Urine 7 (5-7)
[2021-04-06 15:34] LABS: Add Urine Culture? No; Bacteria Urine TRACE /hpf; Mucus Urine 1+ /hpf; RBC Urine 0-4 /hpf (0-2); Squamous Epithelial Cell Urine 0-4 /hpf (0-5)
--- NOTE | 2021-04-06 16:03 | ECG_ITS ---
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 Measurements Intervals [place] Rate: 73 P: 23 HI: 233 QRS: -49 QRSD: 104 T: 87 QT: 364 QTc: 402 Interpretive Statements SINUS RHYTHM WITH FIRST DEGREE AV BLOCK LEFT ANTERIOR FASCICULAR BLOCK [QRS AXIS <= -45, QR IN I, RS IN II] LEFT VENTRICULAR HYPERTROPHY AND ST-T CHANGE [VOLTAGE CRITERIA PLUS ST/T ABNORMALITY] POSSIBLE ANTEROSEPTAL MYOCARDIAL INFARCTION , OF INDETERMINATE AGE [30 ms Q WAVE IN V1-V4] Compared to ECG 04/06/2021 14:50:24 Left anterior fascicular block now present ST (T wave) deviation now present Left-axis deviation no longer present Myocardial infarct finding still present Electronically Signed On 04-06-2021 19:01:29 CDT by Sally Ely M.D. [id number]
[2021-04-06 16:08] VITALS: BP 146/64; PULSE 74; RESP 18; TEMP 36.7; O2SAT 99
[2021-04-06] MEDS: cefTRIAXone 1,000 MG in sodium chloride 0.9% (plus) 50 ML 100 MG IV (16:10)
[2021-04-06 17:37] VITALS: BP 141/82; PULSE 71; RESP 18; TEMP 36.9
== END 2021-04-06 17:38 | disposition home or self-care (01) ==
PROVIDERS: Emergency Provider Family Medicine
DX: N39.0 Urinary tract infection, site not specified (principal); Z79.82 Long term (current) use of aspirin; Z85.118 Personal history of other malignant neoplasm of bronchus and lung; Z87.891 Personal history of nicotine dependence
CPT/HCPCS: 36415; 71045; 80053; 81001; 83605; 83735; 84484; 85025; 93005; 96365; 99283; J0696

== ENCOUNTER → 2021-09-11 15:53 | Outpatient (BNVA) | payer MEDICARE, SELFPAY | PROVIDERS: PCP Family Medicine; Visit Provider Urology | DX: N40.1 Benign prostatic hyperplasia with lower urinary tract symptoms (principal); N13.8 Other obstructive and reflux uropathy | CPT/HCPCS: 81003; 87077; 87086; 87184 ==

== ENCOUNTER → 2021-09-25 13:44 | Outpatient (BNVA) | payer MEDICARE, SELFPAY | PROVIDERS: PCP Family Medicine; Visit Provider Nurse Practitioner Family | DX: R30.0 Dysuria (principal) | CPT/HCPCS: 81003; 87077; 87086; 87184 ==

== ENCOUNTER → 2021-11-20 08:22 | Outpatient (BNVA) | payer MEDICARE, SELFPAY | PROVIDERS: PCP Family Medicine; Visit Provider Urology | DX: N40.1 Benign prostatic hyperplasia with lower urinary tract symptoms (principal); N13.8 Other obstructive and reflux uropathy; R33.9 Retention of urine, unspecified; N39.0 Urinary tract infection, site not specified | CPT/HCPCS: 51798; 99213 ==

== ENCOUNTER → 2021-11-21 09:44 | Outpatient (BNVA) | payer MEDICARE, SELFPAY | PROVIDERS: PCP Family Medicine; Visit Provider Nurse Practitioner Family | DX: N39.0 Urinary tract infection, site not specified (principal); N40.1 Benign prostatic hyperplasia with lower urinary tract symptoms; N13.8 Other obstructive and reflux uropathy; R33.9 Retention of urine, unspecified | CPT/HCPCS: 51798; 87077; 87086; 87186; 99213 ==

== ENCOUNTER 2021-12-26 17:17 | Observation (INO) | payer MEDICARE, SELFPAY ==
--- NOTE | 2021-12-26 17:31 | ECG_ITS ---
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 Measurements Intervals [place] Rate: 92 P: 88 ME: 230 QRS: -61 QRSD: 105 T: 93 QT: 329 QTc: 408 Interpretive Statements SINUS RHYTHM WITH FIRST DEGREE AV BLOCK LEFT AXIS DEVIATION [QRS AXIS < -30] LEFT VENTRICULAR HYPERTROPHY AND ST-T CHANGE [VOLTAGE CRITERIA PLUS ST/T ABNORMALITY] POSSIBLE ANTEROSEPTAL MYOCARDIAL INFARCTION , OF INDETERMINATE AGE [30 ms Q WAVE IN V1-V4] Compared to ECG 04/06/2021 15:59:57 Left-axis deviation now present Left anterior fascicular block no longer present ST (T wave) deviation still present Myocardial infarct finding still present Electronically Signed On 12-26-2021 20:17:05 CDT by Solis Ricketts M.D. [id number]
--- NOTE | 2021-12-26 17:31 | XRR_ITS ---
PROCEDURE INFORMATION: Exam: XR Chest Exam date and time: 12/26/2021 5:37 PM Age: 81 years old Clinical indication: Shortness of breath; Additional info: AMS TECHNIQUE: Imaging protocol: XR of the chest. Views: 1 view. COMPARISON: CR XR chest 1V portable [id number] 04/06/2021 2:18 PM FINDINGS: Lungs: There is volume loss, complete opacity, and upper chest dystrophic calcifications in the left hemithorax. The right lung is hyperexpanded. Small densities seen in the mid and upper lobe. these findings were not well seen on prior examination. Primary or secondary tumor should be ruled out; Chest CT examination is recommended to clarify these findings; Pleural spaces: Unremarkable. No pleural effusion. No pneumothorax. Heart/Mediastinum: Unremarkable. No cardiomegaly. Bones/joints: Unremarkable. XR/XR chest 1V portable [id number] IMPRESSION: 1. Stable left lung opacity, volume loss, and dystrophic calcifications. 2. Hyperexpanded right lung. 3. New densities right mid and upper lobe CT chest recommended 4. Otherwise No acute findings.
--- NOTE | 2021-12-26 17:35 | ED_ITS ---
HPI - General Adult General: Chief complaint: Altered Mental Status Stated complaint: POSSIBLE UTI Time Seen by Provider: 12/26/21 17:29 History of Present Illness: Patient is an 81-year-old male with a history of baseline dementia, recurrent UTI who presents to the emergency room with concerns of worsening altered mental status. Patient at baseline is unable to take care of himself and his takes care of him at home. Earlier today, patient's noticed that he was more confused than usual and breathing slightly harder than normal. was concerned the patient may have another urinary tract infection and brought the patient to the emergency room for further evaluation. On arrival, patient is altered, unable to answer any my questions. Patient is moving extremities, alert occasionally alert. On arrival, patient is noted to be covered with food particles on his shorts. Onset:1 day ago Duration:ongoing Location:home Severity: moderate Associated symptoms: Reports dyspnea Review of Systems Resp: Reports: dyspnea; Denies: non-productive cough Neuro: Reports: other (+confusion) [facility] ED PFSH: Medical History BPH w urinary obs/LUTS DJD (degenerative joint disease) GERD (gastroesophageal reflux disease) History of lung cancer Recurrent UTI Seizure disorder Urinary retention Surgical History History of pneumonectomy Family History Mother , IN HER LATE 80'S Diabetes Social History Smoking and tobacco status: former smoker Alcohol intake: never Marital status: Current occupational status: retired History of recent travel: No Physical Exam HENMT: COMMON NORMALS: atraumatic HEAD & SCALP: atraumatic MOUTH: moist mucous membranes abnormal and other (+mouth open) Eye: COMMON NORMALS: conjunctivae normal CONJUNCTIVA: Yes conjunctivae normal Neck/C-Spine: COMMON NORMALS: full ROM and supple Resp: OTHER: + Mild increased work of breathing , decreased breath sounds on the left side Cardio: COMMON NORMALS: regular rate RATE: regular rate GI: COMMON NORMALS: Soft to palpation and non-tender PALPATION: Yes Soft to palpation OTHER: No focal TTP. NO guarding rebound, guarding, rigidity. No CVA tenderness to percussion. Neg [place]/Neg McBurney's point tenderness, no suprabupic tenderness to palpation. Extremity: COMMON NORMALS: full ROM Neuro: SENSORIUM/ORIENTATION: Yes Orientation impaired Psych: OTHER: Unable to assess given AMS Course Vital Signs: Vital signs: Vital Signs Pulse Rate 95 12/26/21 18:02 Respiratory Rate 30 H 12/26/21 18:02 Blood Pressure 107/56 12/26/21 18:02 Pulse Oximetry 97 12/26/21 18:02 MDM - General Adult Medical Decision Making 81-year-old male presumed full code, recurrent UTI, L sided pneumectomy, dementia presenting to the emergency room for concerns of new onset altered mental status. On physical exam, patient has decreased breath sounds on the left side. Patient has mild increased work of breathing. X-ray chest showed left-sided lung opacification. Has a prior history of pneumonectomy on the left side. UA shows significant UTI. Patient received ceftriaxone. Patient will be admitted to hospital for altered mental status in the setting of significant UTI. Disposition: admission Lab Data : 12/26/21 18:23 12/26/21 18:23 Radiology Impressions Chest X-Ray 12/26/21 17:31 IMPRESSION: 1. Stable left lung opacity, volume loss, and dystrophic calcifications. 2. Hyperexpanded right lung. 3. New densities right mid and upper lobe CT chest recommended 4. Otherwise No acute findings. Chest CT 12/26/21 18:10 IMPRESSION: 1. Stable findings of pneumonectomy 2. No acute infiltrates in the right lung. 3. Chronic appearing compression deformities of the thoracic spine more numerous than on the previous exam. 4. Healing right 10th rib fractures new from the prior study. Head CT 12/26/21 20:14 IMPRESSION: No acute intracranial finding. Laboratory Results WBC 7.7 10^3/uL (4.0-10.0) 12/26/21 18:23 RBC 2.90 10^6/uL (4.1-5.3) L 12/26/21 18:23 Hgb 10.4 g/dL (11.7-16.6) L 12/26/21 18:23 Hct 30.7 % (42.0-52.0) L 12/26/21 18: MCV 105.9 fl (80-94) H 12/26/21 18:23 MCH 35.9 pg (28.0-34.0) H 12/26/21 18: MCHC 33.9 g/dL (30.0-36.0) 12/26/21 18: RDW 14.1 % (12.1-15.1) 12/26/21 18: Plt Count 186 10^3/cmm (130-400) 12/26/21 18: MPV 10.1 fL (7.4-10.4) 12/26/21 18: Lymph % (Auto) Not Reportable 12/26/21 18: [place] % (Auto) Not Reportable 12/26/21 18: Lymph # (Auto) Not Reportable 12/26/21 18: [place] # (Auto) Not Reportable 12/26/21 18: Total Counted 100 (0-100) 12/26/21 18: Atypical Lymphs % 10.0 % (0-5) H 12/26/21 18: Absolute Neutrophils 5.9 10^3/cmm (1.4-6.5) 12/26/21 18: Segmented Neutrophils 63 % 12/26/21 18: Abs Segm Neuts (Man) 4.9 10/cmm (1.6-7.1) 12/26/21 18: Band Neutrophils 14.0 % 12/26/21 18: Abs Band Neuts (Man) 1.1 10^3/cmm (0.0-1.2) 12/26/21 18: Absolute Lymphocytes 1.1 10^3/cmm (1.2-3.4) L 12/26/21 18: Lymphocytes (Manual) 4 % 12/26/21 18: Monocytes (Manual) 9.0 % 12/26/21 18: Absolute Monocytes 0.7 10^3/cmm (0.1-0.6) H 12/26/21 18: Eosinophils (Manual) 0 % 12/26/21 18: Absolute Eosinophils 0.0 10^3/cmm (0.0-0.7) 12/26/21 18: Basophils (Manual) 0.0 % 12/26/21 18: Absolute Basophils 0.0 10^3/cmm (0.0-0.2) 12/26/21 18:23 Platelet Estimate Normal (Normal) 12/26/21 18:23 Sodium 133 mmol/L (136-145) L 12/26/21 18:23 Potassium 4.6 mmol/L (3.5-5.1) 12/26/21 18:23 Chloride 101 mmol/L (98-107) 12/26/21 18:23 Carbon Dioxide 21 mmol/L (22-29) L 12/26/21 18:23 Anion Gap 15.6 (5-19) 12/26/21 18:23 BUN 40 mg/dL (8-23) H 12/26/21 18:23 Creatinine 1.8 mg/dL (0.7-1.2) H 12/26/21 18:23 GFR Calculation Not Reportable 12/26/21 18:23 Glucose 127 mg/dL (65-115) H 12/26/21 18:23 Calculated Osmolality 287 mOsm/kg (285-295) 12/26/21 18:23 Calcium 8.2 mg/dL (8.5-10.5) L 12/26/21 18:23 Total Bilirubin 0.4 mg/dL (0.15-1.2) 12/26/21 18:23 AST 82 U/L (0-40) H 12/26/21 18:23 ALT 70 U/L (0-41) H 12/26/21 18:23 Alkaline Phosphatase 112 IU/L (40-130) 12/26/21 18:23 Troponin T Baseline 39 ng/L (0-15) H 12/26/21 18:23 Total Protein 6.0 g/dL (6.6-8.7) L 12/26/21 18:23 Albumin 3.0 g/dL (3.5-5.2) L 12/26/21 18:23 Globulin 3.0 g/dL (1.3-4.6) 12/26/21 18:23 Lipase 22 U/L (13-60) 12/26/21 18:23 Urine Color Melba (Yellow) 12/26/21 19:42 Urine Appearance Turbid (CLEAR) 12/26/21 19:42 Urine pH 7 (5-7) 12/26/21 19:42 Ur Specific [place] 1.005 (1.005-1.030) 12/26/21 19:42 Urine Protein 2+ (Negative) H 12/26/21 19:42 Urine Glucose (UA) Norm (Normal) 12/26/21 19:42 Urine Ketones Negative (Negative) 12/26/21 19:42 Urine Blood 3+ (Negative) H 12/26/21 19:42 Urine Nitrate Negative (Negative) 12/26/21 19:42 Urine Bilirubin Neg (Negative) 12/26/21 19:42 Urine Urobilinogen Norm mg/dL (Negative) 12/26/21 19:42 Ur Leukocyte Esterase 2+ (Negative) H 12/26/21 19:42 Urine RBC Too numerous to cnt /hpf (0-2) H 12/26/21 19:42 Urine WBC Too numerous to cnt /hpf (0-5) H 12/26/21 19:42 Ur Squamous Epith Cells 0-4 /hpf (0-5) H 12/26/21 19:42 Amorphous Sediment Not Reportable 12/26/21 19:42 Urine Bacteria 4+ /hpf (NONE) H 12/26/21 19:42 Imaging Data Other Imaging: Radiologist's impression: [address] [place] [address] XRay Report Signed Patient: Ina Doyle Unit #: [id number] : 1940 Age/Sex: 81 / M ADM Date: 12/26/21 Loc: ER Room/Bed: Attending Dr: Ordering Provider/Ordering MD: Teresita Farley MD Date of Service: 12/26/21 Procedure(s): XR chest 1V portable [id number] Accession Number(s): [id number] Report Number: [id number] PROCEDURE INFORMATION: Exam: XR Chest Exam date and time: 12/26/2021 5:37 PM Age: 81 years old Clinical indication: Shortness of breath; Additional info: AMS TECHNIQUE: Imaging protocol: XR of the chest. Views: 1 view. COMPARISON: CR XR chest 1V portable [id number] 04/06/2021 2:18 PM FINDINGS: Lungs: There is volume loss, complete opacity, and upper chest dystrophic calcifications in the left hemithorax. The right lung is hyperexpanded. Small densities seen in the mid and upper lobe. these findings were not well seen on prior examination. Primary or secondary tumor should be ruled out; Chest CT examination is recommended to clarify these findings; Pleural spaces: Unremarkable. No pleural effusion. No pneumothorax. Heart/Mediastinum: Unremarkable. No cardiomegaly. Bones/joints: Unremarkable. XR/XR chest 1V portable [id number] IMPRESSION: 1. Stable left lung opacity, volume loss, and dystrophic calcifications. 2. Hyperexpanded right lung. 3. New densities right mid and upper lobe CT chest recommended 4. Otherwise No acute findings. ? Dictated By: Terrence Morrison Signed By: Terrence Morrison Signed Date/Time: 12/26/21 180 DD/ [address] [address] [address] Scan Report Signed Patient: Ina Doyle Unit #: [id number] : 1940 Age/Sex: 81 / M ADM Date: 12/26/21 Loc: ER Room/Bed: Attending Dr: Ordering Provider/Ordering MD: Teresita Farley MD Date of Service: 12/26/21 Procedure(s): CT head wo con* [id number] Accession Number(s): [id number] Report Number: [id number] PROCEDURE INFORMATION: Exam: CT Head Without Contrast Exam date and time: 12/26/2021 9:09 PM Age: 81 years old Clinical indication: Altered mental status/memory loss; Additional info: AMS TECHNIQUE: Imaging protocol: Computed tomography of the head without contrast. Radiation optimization: All CT scans at this facility use at least one of these dose optimization techniques: automated exposure control; mA and/or kV adjustment per patient size (includes targeted exams where dose is matched to clinical indication); or iterative reconstruction. COMPARISON: CT head wo con* [id number] 03/24/2021 2:56 PM RADIATION DOSE METRICS: Total DLP (mGy-cm): 853.76 FINDINGS: Brain: There is moderate cortical atrophy. Low-density changes in the white matter are consistent with nonspecific small vessel chronic ischemic change. There is no intracranial mass, hemorrhage or edema. Cerebral ventricles: No ventriculomegaly. Paranasal sinuses: Visualized sinuses are unremarkable. No fluid levels. Mastoid air cells: Visualized mastoid air cells are well aerated. Bones/joints: Unremarkable. No acute fracture. Soft tissues: Unremarkable. CT/CT head wo con* [id number] IMPRESSION: No acute intracranial finding. ? Dictated By: Rishabh Varner Signed By: Rishabh Varner Signed Date/Time: 12/26/212127 DD/ 08 Discharge Plan Discharge Patient Disposition: Admitted As Inpatient Clinical Impression: Dyspnea, Aspiration of food, Altered mental status Condition: Stable Coding Level of Care Code ED Trading Analyst for Chg Fwd Exam Detailed
[2021-12-26 17:57] VITALS: BP 98/57; PULSE 98; RESP 30; O2SAT 99
[2021-12-26 18:02] VITALS: BP 107/56; PULSE 95; RESP 30; O2SAT 97
--- NOTE | 2021-12-26 18:10 | CTR_ITS ---
PROCEDURE INFORMATION: Exam: CT Chest With Contrast; Diagnostic Exam date and time: 12/26/2021 7:52 PM Age: 81 years old Clinical indication: Dyspnea; Prior surgery; Surgery date: 6+ months; Surgery type: Lung for lung cancer; Additional info: Aspiration eval TECHNIQUE: Imaging protocol: Diagnostic computed tomography of the chest with contrast. Radiation optimization: All CT scans at this facility use at least one of these dose optimization techniques: automated exposure control; mA and/or kV adjustment per patient size (includes targeted exams where dose is matched to clinical indication); or iterative reconstruction. Contrast material: OMNI; Contrast volume: 40 ml; Contrast route: INTRAVENOUS (IV); COMPARISON: CT angio chest PE protcl [id number] 03/22/2020 6:22 PM RADIATION DOSE METRICS: Total DLP (mGy-cm): 616.58 FINDINGS: Limitations: Study somewhat limited due to streak artifact created by the patient being scanned with the arms at the sides. Lungs: Findings of centrilobular emphysema stable from the previous examination. No focal infiltrate or consolidation. Postsurgical findings of left pneumonectomy stable. Pleural spaces: Unremarkable. No pneumothorax. No pleural effusion. Heart: There is severe atherosclerotic calcification of the coronary arteries. Heart is within normal limits of size. Lymph nodes: There is no evidence of lymphadenopathy. Vasculature: There is mild atherosclerotic calcification of the aortic arch and descending thoracic aorta. There is no thoracic aortic aneurysm. Kidneys and ureters: There are findings suggesting bilateral hydronephrosis but the kidneys are not fully imaged on this study. Bones/joints: There is moderate wedging compression at T1 with approximately 50% loss of height of the anterior vertebral body which is new from the prior exam, mild loss of height T4 not significantly changed mild compression inferior endplate of T6, chronic in appearance but new from the previous study. Chronic appearing compression fracture of the superior endplate T8 also new from the previous study. Moderate wedging and degenerative changes with calcification of the anterior longitudinal ligament involving T10 through L1, chronic in appearance and not changed from previous. No acute appearing fracture is demonstrated. There also healing fractures of the right 8th rib new from the previous examination and also old healed fracture of T12 new from the previous study. There is old healed right 11th rib fracture not significantly changed. Soft tissues: Unremarkable. CT/CT chest w con* [id number] IMPRESSION: 1. Stable findings of pneumonectomy 2. No acute infiltrates in the right lung. 3. Chronic appearing compression deformities of the thoracic spine more numerous than on the previous exam. 4. Healing right 10th rib fractures new from the prior study.
[2021-12-26 18:47] LABS: Hematocrit 30.7 % (42.0-52.0); Hemoglobin 10.4 g/dL (11.7-16.6); Mean Corpuscular HGB Conc 33.9 g/dL (30.0-36.0); Mean Corpuscular Hemoglobin 35.9 pg (28.0-34.0); Mean Corpuscular Volume 105.9 fl (80-94); Mean Platelet Volume 10.1 fL (7.4-10.4); Platelet Count 186 10^3/cmm (130-400); Red Cell Distribution Width 14.1 % (12.1-15.1); White Blood Count 7.7 10^3/uL (4.0-10.0)
[2021-12-26 19:02] LABS: Troponin(5th) Baseline 39 ng/L (0-15)
[2021-12-26 19:04] LABS: Alanine Aminotransferase 70 U/L (0-41); Alkaline Phosphatase 112 IU/L (40-130); Blood Urea Nitrogen 40 mg/dL (8-23); Calcium 8.2 mg/dL (8.5-10.5); Carbon Dioxide 21 mmol/L (22-29); Chloride 101 mmol/L (98-107); Glucose 127 mg/dL (65-115); Lipase 22 U/L (13-60); Osmolality Calculated 287 mOsm/kg (285-295); Sodium 133 mmol/L (136-145); Total Bilirubin 0.4 mg/dL (0.15-1.2)
[2021-12-26 19:07] LABS: Anion Gap 15.6 (5-19); Aspartate Amino Transferase 82 U/L (0-40); Potassium 4.6 mmol/L (3.5-5.1)
--- NOTE | 2021-12-26 19:17 | PC.NURSE ---
This RN gave report to MEAGHAN Mckeon at this time who will assume care at this time.
[2021-12-26 19:27] LABS: Slide Review Slide Review Perform
[2021-12-26 19:28] LABS: Absolute Neutrophil 5.9 10^3/cmm (1.4-6.5); Absolute Segmented Neutrophil 4.9 10/cmm (1.6-7.1); Band Neutrophils Absolute 1.1 10^3/cmm (0.0-1.2); Eosinophils 0 %; Lymphocytes 4 %; Lymphocytes Absolute 1.1 10^3/cmm (1.2-3.4); Monocytes Absolute 0.7 10^3/cmm (0.1-0.6); Platelet Estimate Normal (Normal); Segmented Neutrophils 63 %; Total Cells Counted 100 (0-100)
--- NOTE | 2021-12-26 19:31 | ECG_ITS ---
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 Measurements Intervals [place] Rate: 88 P: 88 FL: 229 QRS: -59 QRSD: 110 T: 94 QT: 348 QTc: 422 Interpretive Statements SINUS RHYTHM WITH FIRST DEGREE AV BLOCK WITH OCCASIONAL VENTRICULAR PREMATURE COMPLEXES PATTERN CONSISTENT WITH PULMONARY DISEASE LEFT ANTERIOR FASCICULAR BLOCK [QRS AXIS <= -45, QR IN I, RS IN II] LEFT VENTRICULAR HYPERTROPHY AND ST-T CHANGE [VOLTAGE CRITERIA PLUS ST/T ABNORMALITY] POSSIBLE SEPTAL MYOCARDIAL INFARCTION , OF INDETERMINATE AGE [30 ms Q WAVE IN V1/V2] Compared to ECG 12/26/2021 18:17:08 Ventricular premature complex(es) now present Left anterior fascicular block now present Left-axis deviation no longer present ST (T wave) deviation still present Myocardial infarct finding still present Electronically Signed On 12-27-2021 15:23:22 CDT by Tae Hernandez M.D. [id number]
[2021-12-26] MEDS: iohexol 300 mg/mL 100 mL Btl IV (19:52)
[2021-12-26 20:05] LABS: Add Urine Microscopic? YES; Bilirubin Urine Neg (Negative); Blood Urine 3+ (Negative); Glucose Urine UA Norm (Normal); Ketones Urine Negative (Negative); Leukocyte Esterase Urine 2+ (Negative); Nitrate Urine Negative (Negative); Protein Urine 2+ (Negative); Specific Gravity, Urine 1.005 (1.005-1.030); Urine Appearance Turbid (CLEAR); Urine Color Amber (Yellow); Urobilinogen Urine Norm (Negative); pH Urine 7 (5-7)
[2021-12-26 20:06] LABS: Add Urine Culture? Yes; Bacteria Urine 4+ /hpf; RBC Urine TOO NUMEROUS TO CNT /hpf (0-2); Squamous Epithelial Cell Urine 0-4 /hpf (0-5); WBC Urine TOO NUMEROUS TO CNT /hpf (0-5)
--- NOTE | 2021-12-26 20:14 | CTR_ITS ---
PROCEDURE INFORMATION: Exam: CT Head Without Contrast Exam date and time: 12/26/2021 9:09 PM Age: 81 years old Clinical indication: Altered mental status/memory loss; Additional info: AMS TECHNIQUE: Imaging protocol: Computed tomography of the head without contrast. Radiation optimization: All CT scans at this facility use at least one of these dose optimization techniques: automated exposure control; mA and/or kV adjustment per patient size (includes targeted exams where dose is matched to clinical indication); or iterative reconstruction. COMPARISON: CT head wo con* [id number] 03/24/2021 2:56 PM RADIATION DOSE METRICS: Total DLP (mGy-cm): 853.76 FINDINGS: Brain: There is moderate cortical atrophy. Low-density changes in the white matter are consistent with nonspecific small vessel chronic ischemic change. There is no intracranial mass, hemorrhage or edema. Cerebral ventricles: No ventriculomegaly. Paranasal sinuses: Visualized sinuses are unremarkable. No fluid levels. Mastoid air cells: Visualized mastoid air cells are well aerated. Bones/joints: Unremarkable. No acute fracture. Soft tissues: Unremarkable. CT/CT head wo con* [id number] IMPRESSION: No acute intracranial finding.
[2021-12-26] MEDS: cefTRIAXone 1,000 MG in sodium chloride 0.9% (plus) 50 ML 100 MG IV (20:28)
--- NOTE | 2021-12-26 21:43 | PM.HP ---
Providers/Chief Complaint Primary Care Provider: Blaze Simmons MD Chief Complaint: POSSIBLE UTI History of Present Illness 81-year-old male with a past medical history significant for degenerative disorder, recurrent UTI , currently taking Macrobid for about a month's time , chronic obstructive pulmonary disease, obstructive sleep apnea on CPAP, hyperlipidemia, hypertension, gastroesophageal reflux disease, recurrent falls with hx of multilevel compression fractures (T4,T10,T11,T12), lung cancer with hx of left sided pneumonectomy, CVA (right caudate body), and seizure disorder who is presenting to ER with generalized weakness , fatigue , poor appetite, lethargy, going on for the last 3 to 4 days. Upon arrival in the ER: CT head wo con: No acute intracranial finding. CT chest w con: No acute infiltrates in the right lung.Stable findings of pneumonectomy.Chronic appearing compression deformities of the thoracic spine. EKG: SINUS RHYTHM WITH FIRST DEGREE AV BLOCK. LEFT ANTERIOR FASCICULAR BLOCK..LEFT VENTRICULAR HYPERTROPHY AND ST-T CHANGE. Pertinent labs: WBC 7.7 , H&H 10/ 30 , plt : 186 , serum sodium 133 , serum potassium 4.6 , BUN serum creatinine 40/ 1.8 , Urinalysis: Dirty. Review of Systems General: Reports: 10 or more systems reviewed and unremarkable except in HPI and below Const: Reports: change in appetite; Denies: fever(s), chills, body aches or diaphoresis Card: Denies: palpitations, edema, swelling of feet/ankles, dyspnea on exertion, orthopnea or leg pain with exertion Resp: Denies: dyspnea, productive cough, wheezing or pain on inspiration GI: Denies: abdominal pain, nausea, vomiting, diarrhea or constipation : Reports: difficulty urinating; Denies: flank pain Musc: Denies: back pain, extremity pain or extremity swelling Neuro: Denies: headache(s), difficulty walking or confusion Medications/Allergies Home Medications Medication Instructions Recorded Confirmed Last Taken Type albuterol sulfate 90 mcg/actuation 2 puff INHALATION Q4H PRN 03/26/21 12/26/21 Unknown History aerosol inhaler (ProAir HFA) aspirin 81 mg tablet,delayed 81 mg PO QAM 03/26/21 12/26/21 12/26/21 History release (Anne Low Dose Aspirin) eslicarbazepine 400 mg tablet 400 mg PO QAM 03/26/21 12/26/21 12/26/21 History famotidine 20 mg tablet (Pepcid) 20 mg PO BID 03/26/21 12/26/21 12/26/21 History lacosamide 200 mg tablet 200 mg PO BID 03/26/21 12/26/21 12/26/21 History multivitamin 1 tab PO QAM 03/26/21 12/26/21 12/26/21 History potassium chloride 20 mEq/15 mL 7.5 meq PO QAM 03/26/21 12/26/21 12/26/21 History oral liquid pyridoxine (vitamin B6) 100 mg 100 mg PO DAILY 03/26/21 12/26/21 12/26/21 History tablet (Vitamin B-6) topiramate 200 mg tablet 200 mg PO BID 03/26/21 12/26/21 12/26/21 History tamsulosin 0.4 mg capsule 0.4 mg PO DAILY #90 cap 04/11/21 12/26/21 12/26/21 Rx finasteride 5 mg tablet 5 mg PO DAILY 08/21/21 12/26/21 12/25/21 History nitrofurantoin See Rx Instructions .ROUTE 12/24/21 12/26/21 12/26/21 Rx monohydrate/macrocrystals 100 mg .COMPLEX #60 cap capsule Allergies Allergy/AdvReac Type Severity Reaction Status Date / Time No Known Allergies Allergy Verified 11/20/21 08:48 PFSH Acute PFSH: Medical History BPH w urinary obs/LUTS DJD (degenerative joint disease) GERD (gastroesophageal reflux disease) History of lung cancer Recurrent UTI Seizure disorder Urinary retention Surgical History History of pneumonectomy Family History Mother , IN HER LATE 80'S Diabetes Social History Smoking and tobacco status: former smoker Alcohol intake: never Marital status: Current occupational status: retired History of recent travel: No Vitals/I&O/Wt Last Vital Signs Pulse 95 12/26/21 18:02 Resp 30 H 12/26/21 18:02 BP 107/56 12/26/21 18:02 Pulse Ox 97 12/26/21 18:02 Weight last 48 hrs Weight 65.771 kg Physical Exam Narrative: Not in acute distress HENMT: COMMON NORMALS: normocephalic and atraumatic HEAD & SCALP: normocephalic and atraumatic Resp: COMMON NORMALS: normal respiratory effort and clear to auscultation bilaterally EFFORT & INSPECTION: Yes symmetric chest movement AUSCULTATION: clear to auscultation bilaterally Cardio: COMMON NORMALS: regular rate, regular rhythm, S1 normal heart sound present, S2 normal heart sound present, No gallops present (Cardio), No murmurs present (Cardio), No rub (Cardio) and Peripheral pulses 2+ throughout RATE: regular rate RHYTHM: regular rhythm HEART SOUNDS: S1 normal heart sound present and S2 normal heart sound present PERIPHERAL PULSES: Peripheral pulses 2+ throughout GI: COMMON NORMALS: Normal to inspection, nondistended, normoactive bowel sounds present, Soft to palpation, non-tender, No hepatosplenomegaly present and no masses AUSCULTATION: Yes normoactive bowel sounds PALPATION: Yes Soft to palpation and Yes No hepatosplenomegaly present RECTAL EXAM: Yes deferred Extremity: COMMON NORMALS: no clubbing, cyanosis or edema and no pedal edema Data : 12/27/21 05:01 12/27/21 05:01 A&P Assessment and plan (1) Recurrent UTI: Status: Acute (2) Dementia: Status: Acute (3) Acute kidney injury superimposed on CKD: Status: Acute Plan 81-year-old male with a past medical history significant for degenerative disorder, recurrent UTI , currently taking Macrobid for about a month's time , chronic obstructive pulmonary disease, obstructive sleep apnea on CPAP, hyperlipidemia, hypertension, gastroesophageal reflux disease, recurrent falls with hx of multilevel compression fractures (T4,T10,T11,T12), lung cancer with hx of left sided pneumonectomy, CVA (right caudate body), and seizure disorder who is presenting to ER with generalized weakness , fatigue , poor appetite, lethargy, going on for the last 3 to 4 days. Assessment: Recurrent UTI JAJA on CKD Dehydration COPD Obstructive sleep apnea Hypertension BPH Plan: Follow urine culture Continue IV hydration with normal saline Monitor BMP Continue Ceftriaxone Monitoring intake output charting Follow random urine sodium Random urine creatinine FENA UPCR Avoid nephrotoxic's Albuterol inhaler as needed DVT prophylaxis: On Lovenox Attestations Medical Necessity Statement*: Patient is in hospital for management of recurrent UTI dehydration JAJA on CKD. Anticipated length of stay greater than 2 midnights Time Spent in Patient Care: Greater than 35 minutes (>than 50% of time spent in counselling and/or direct pt care on unit). Coding Level of Care Code Acute Logging Operations Inspector for [facility] Fwd Exam Detailed Diagnoses Recurrent UTI N39.0 Dementia F03.90 Acute kidney injury superimposed on CKD N17.9; N18.9
[2021-12-26] MEDS: enoxaparin 30 mg/0.3 mL Syringe SUBCUT (23:01)
[2021-12-26] MEDS: sodium chloride 0.9% 1,000 ML 100 ML IV (23:02)
--- NOTE | 2021-12-26 23:31 | ECG_ITS ---
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 Measurements Intervals [place] Rate: 85 P: 100 [place]: 228 QRS: -56 QRSD: 110 T: 89 QT: 351 QTc: 419 Interpretive Statements SINUS RHYTHM WITH FIRST DEGREE AV BLOCK PATTERN CONSISTENT WITH PULMONARY DISEASE LEFT ANTERIOR FASCICULAR BLOCK [QRS AXIS <= -45, QR IN I, RS IN II] LEFT VENTRICULAR HYPERTROPHY AND ST-T CHANGE [VOLTAGE CRITERIA PLUS ST/T ABNORMALITY] POSSIBLE SEPTAL MYOCARDIAL INFARCTION , PROBABLY OLD [30 ms Q WAVE IN V1/V2] Compared to ECG 12/26/2021 22:15:26 Ventricular premature complex(es) no longer present ST (T wave) deviation still present Myocardial infarct finding still present Electronically Signed On 12-27-2021 15:23:45 CDT by Tae Hernandez M.D. [id number]
[2021-12-26 23:38] VITALS: BP 122/70; PULSE 87; RESP 16; TEMP 37.2; O2SAT 98
[2021-12-26 23:51] VITALS: BP 122/70; PULSE 87; RESP 16; TEMP 37.2; O2SAT 98
[2021-12-27] VITALS (7 sets, daily range): BP systolic 96–128; BP diastolic 62–72; PULSE 81–94; RESP 16–22; TEMP 36.6–36.9; O2SAT 94–99; BMI 24.9
[2021-12-27] MEDS: aspirin 81 mg EC Tablet PO (05:26)
[2021-12-27] MEDS: multivitamin therapeutic Tablet 1 TAB PO (05:27)
[2021-12-27 05:36] LABS: Hematocrit 33.5 % (42.0-52.0); Hemoglobin 11.5 g/dL (11.7-16.6); Mean Corpuscular HGB Conc 34.3 g/dL (30.0-36.0); Mean Corpuscular Hemoglobin 35.2 pg (28.0-34.0); Mean Corpuscular Volume 102.4 fl (80-94); Mean Platelet Volume 10.6 fL (7.4-10.4); Platelet Count 174 10^3/cmm (130-400); Red Blood Count 3.27 10^6/uL (4.1-5.3); Red Cell Distribution Width 13.9 % (12.1-15.1); White Blood Count 8.2 10^3/uL (4.0-10.0)
[2021-12-27 06:12] LABS: Anion Gap 18.6 (5-19); Blood Urea Nitrogen 41 mg/dL (8-23); Calcium 8.6 mg/dL (8.5-10.5); Carbon Dioxide 16 mmol/L (22-29); Chloride 107 mmol/L (98-107); Glucose 114 mg/dL (65-115); Osmolality Calculated 295 mOsm/kg (285-295); Potassium 4.6 mmol/L (3.5-5.1); Sodium 137 mmol/L (136-145)
--- NOTE | 2021-12-27 08:09 | CTR_ITS ---
PROCEDURE INFORMATION: Exam: CT Abdomen And Pelvis Without Contrast Exam date and time: 12/27/2021 9:54 AM Age: 81 years old Clinical indication: Condition or disease; Other: UTI; Primary cancer: Lung TECHNIQUE: Imaging protocol: Computed tomography of the abdomen and pelvis without contrast. Radiation optimization: All CT scans at this facility use at least one of these dose optimization techniques: automated exposure control; mA and/or kV adjustment per patient size (includes targeted exams where dose is matched to clinical indication); or iterative reconstruction. COMPARISON: CT abdomen pelvis w con* [id number] 03/24/2021 5:26 PM RADIATION DOSE METRICS: Total DLP (mGy-cm): 944.9 FINDINGS: Lungs: The visualized lung bases demonstrate no focal airspace opacification or pleural effusion. Heart: Coronary artery calcifications noted. Liver: The liver is normal in size and contour. Gallbladder and bile ducts: The gallbladder is distended with normal wall thickness and does not demonstrate calcified gallstones. No intra- or extra-hepatic biliary ductal dilatation. Pancreas: The pancreas appears normal. Spleen: Partially visualized portions of the spleen are unremarkable. Small splenule is noted. Adrenal glands: The adrenals appear normal. Kidneys and ureters: Contrast is noted within the renal collecting systems, likely related to recent contrast administration for CT of the chest. Bilateral hydronephrosis and hydroureter noted. No significant perinephric or periureteral fat stranding. Stomach and bowel: The stomach appears unremarkable. The small bowel loops are not abnormally dilated. Colonic diverticulosis without signs of acute diverticulitis. Appendix: No signs of appendicitis. Intraperitoneal space: No ascites or significant fluid collection. Vasculature: Retroaortic left renal vein. Atherosclerotic disease likely causing some degree of stenosis at the origin of the superior mesenteric artery, and right renal artery. Lymph nodes: There are no enlarged lymph nodes. Urinary bladder: Layering contrast noted within the urinary bladder. Multiple filling defects irregularly-shaped along the dependent posterior margin of the urinary bladder noted. Reproductive: The prostate is either diminutive or surgically absent. The seminal vesicles appear unremarkable. Bones/joints: Multilevel degenerative changes in the spine. Soft tissues: Unremarkable. CT/CT abdomen pelvis wo con [id number] IMPRESSION: 1. Bilateral hydronephrosis and hydroureter noted. No significant perinephric or periureteral fat stranding. Irregularity within the urinary bladder concerning for possible mass versus hematoma/clot. Recommend follow-up urological evaluation. 2. Colonic diverticulosis without signs of acute diverticulitis. COMMENTS: Evaluation of solid organs and vascular structures is limited as no IV contrast was administered.
[2021-12-27 08:21] LABS: Slide Review Slide Review Perform
[2021-12-27 08:26] LABS: Absolute Neutrophil 5.7 10^3/cmm (1.4-6.5); Absolute Segmented Neutrophil 3.2 10/cmm (1.6-7.1); Band Neutrophils Absolute 2.5 10^3/cmm (0.0-1.2); Eosinophils 0 %; Lymphocytes 21 %; Lymphocytes Absolute 1.8 10^3/cmm (1.2-3.4); Monocytes Absolute 0.7 10^3/cmm (0.1-0.6); Platelet Estimate Normal (Normal); Segmented Neutrophils 39 %; Total Cells Counted 100 (0-100)
[2021-12-27 08:27] LABS: Macrocytosis 1+
[2021-12-27] MEDS: finasteride 5 mg Tablet PO (08:59)
[2021-12-27] MEDS: tamsulosin 0.4 mg Capsule PO (08:59)
[2021-12-27] MEDS: sodium chloride 0.9% 1,000 ML 100 ML IV (08:59)
[2021-12-27] MEDS: pyridoxine 50 mg Tablet 100 MG PO (08:59)
[2021-12-27] MEDS: famotidine 20 mg Tablet PO ×2 (08:59→17:03)
[2021-12-27] MEDS: topiramate 100 mg Tablet 200 MG PO ×2 (08:59→17:03)
[2021-12-27] MEDS: linezolid premix 600 MG/300 ML PREMIX 300 MG IV ×2 (09:13→20:12)
[2021-12-27] MEDS: cefepime 1,000 MG in sodium chloride 0.9% (plus) 50 ML 100 MG IV (09:59)
--- NOTE | 2021-12-27 10:22 | PC.CHAP ---
Pastoral Care Encounter/Spiritual Assessment Type of Contact [] Declined tax economist visit [] Patient/Family/Request visit [] Outpatient visit [] Follow-up visit [] Physician referral [] Code/Alert [x] Routine visit [] Staff referral [] Actively dying [] Patient sleeping [] Family support [] [] Out of room [] Palliative care [] [x] Receiving care in room [] Pre-surgical visit [] Trauma [] Long length of stay [] ICU visit [] Other: Relational/Emotional Strength [x] Patient feels connected with others/family/visitors/staff [] Distress [] Loneliness/isolation [] Abandonment Spirituality of Patient [x] Person of Loulou [] Attends Jain of their Loulou [x] Believes in Prayer [] Reads Bible or Tenriism materials [] There are Spiritual issues to be addressed Pharmaceutical Representative Interventions [x] Prayer [x] Active listening [x] Non-anxious presence [x] Spiritual/emotional support [] Crisis/trauma care [x] Spiritual counseling [] Bereavement support [] Provided bereavement packet [] Provided Bible/devotional materials [] Provided toy/stuffed animal, coloring book to patient or family member [] Provided Communion [] Anointing/[place] [] Salvation [x] Completed spiritual assessment [] Other: Impact on Illness or Injury [] Angry [] Fearful [x] Anxious [] Often cries [] Exhaustion [] Unable to work [] Unable to attend adventist [] Unable to walk/stand [] Unable to read [] Unable to drive [] Unable to eat/drink [] Unable to sleep [] Unable to be with family [] Patient intubated [] Other: Summary Kindy not sure about what needs to be done has a good attitude well go home Time spent with patient 10 mins
--- NOTE | 2021-12-27 12:01 | PM.PN ---
Subjective Subjective: CT head unremarkable, chest CT showing pneumonectomy, rib fracture, chronic compression fractures I noticed left-sided facial droop which according to his is new He stays in his wheelchair does not want him to go to any rehab No previous diagnosis of Alzheimer's dementia Patient is answer my question appropriately however left due to lethargic Not able to eat his diet today I requested speech therapy Requested CT abdomen pelvis which is showing bilateral hydronephrosis without any perinephric changes however bladder has blood clot, he has gross hematuria Will do manual irrigation, Place Ordaz catheter Discussed findings with Dr. Obrien Ceftriaxone discontinued, previous urine culture report reviewed which showing Pseudomonas and staph sensitive to cefepime Vitals/I&O/Wt Last Vital Signs Temp 97.9 F 12/27/21 11:10 Pulse 81 12/27/21 11:10 Resp 17 12/27/21 11:10 BP 121/71 12/27/21 11:10 Pulse Ox 94 12/27/21 11:10 12/26/21 12/27/21 12/27/21 22:59 06:59 14:59 Intake Total 50 / 50 0 / 50 1345 / 1345 Balance 50 / 50 0 / 50 1345 / 1345 Weight last 48 hrs Weight 65.771 kg Weight 65.771 kg Physical Exam Narrative: Patient laying in his bed fatigued and lethargic Left-sided facial droop Able to move his extremities Lower extremity has lower strength as compared to upper Able to answer my questions appropriately Was not able to eat, choking noted on semisolid food Currently saturating well on room air Dehydrated No signs of edema of legs S1, S2 Data : 12/27/21 05:01 12/27/21 05:01 A&P Assessment and plan (1) Acute kidney injury superimposed on CKD: Status: Acute (2) Dyspnea: Status: Acute (3) Aspiration of food: Status: Acute (4) Altered mental status: Status: Acute (5) Recurrent UTI: Status: Acute (6) Dementia: Status: Acute (7) Urinary retention: Status: Acute (8) BPH w urinary obs/LUTS: Status: Acute Plan Waxing and waning mentation I do believe he has delirium with underlying dementia I also noticed left-sided facial droop CT head unremarkable Will request speech therapy is instructed to take him home This is related to his aspiration pneumonitis and UTI Recurrent UTI I would use cefepime and linezolid as compared to ceftriaxone Previous culture and sensitive report reviewed Dr. Lazo recommended large bore Ordaz catheter and manual irrigation until urine culture improved Previous history of cystoscopy as per Dr. Obrien Manual irrigation until urine color improves, discontinue Anticoagulating agents, Patient will use CPAP for sleep apnea Acute on chronic kidney disease related to urine retention due to clot/hematoma DNR/DNI discussed with his Discontinue aspirin and Lovenox BPH continue tamsulosin Attestations Medical Necessity Statement*: Continue medical management Time Spent in Patient Care: 40min Coding Level of Care Code Acute Case Management Associate for g Fwd Diagnoses Acute kidney injury superimposed on CKD N17.9; N18.9 Dyspnea R06.00 Aspiration of food T17.928A Altered mental status R41.82 Recurrent UTI N39.0 Dementia F03.90 Urinary retention R33.9 BPH w urinary obs/LUTS N40.1; N13.8
--- NOTE | 2021-12-27 18:29 | PC.NURSE ---
Patient pleasantly confused with orientation to self only. Happy to see visitors and pretty ladies. VSS, frequent turns with no complaints. at bedside, 3way velez placed after orders received from physician and charted purulent thick output. Has required frequent manual irrigation frequently since placement with large and small clots. Output is very foul in smell. Room is clean and clutter free with call light in reach and agreeable to frequent turns. Will report to oncoming nurse at shift change at bedside.
--- NOTE | 2021-12-27 18:33 | P.CONIM_ITS ---
Providers/Reason For Consult Consulting Physician/Specialty*: Obrien/urology Reason for Consult*: Urinary retention, bilateral hydronephrosis, gross hematuria Requesting Physician: Dr. Gallardo Attending Physician: Horacio Gallardo MD Primary Care Provider: Blaze Simmons MD History of Present Illness History of Present Illness Ina Doyle is a 81 year old male well-known to me for history of urinary retention first diagnosed March 2021. CYSTOSCOPY at that time revealed heavily trabeculated distended bladder with not an overtly enlarged prostate. Etiology unclear expect neurogenic bladder playing a role also in the face of some chronic obstruction. Initially managed with medical therapy and indwelling Ordaz catheter later converted to SCIC but did not do well with that. Developed recurrent urinary tract infections as well. Admitted to the hospital with mental status changes found to have urinary tract infection. CT scan revealed bilateral hydronephrosis which was new since 2020, distended bladder with clot. Urine was grossly purulent. I was consulted for advice regarding bladder management and gross hematuria. Nursing staff was instructed to place a large bore Ordaz catheter and manually irrigate until clear. Have received a lot of purulent and bloody urine with clots since that was initiated. His white count was normal. Urinalysis demonstrated too numerous to count white cells Creatinine was 1.8 Urine has cleared substantially since initiation of irrigation. Review of Systems Const: Reports: malaise; Denies: fever(s) or chills Card: Denies: chest pain Resp: Reports: dyspnea and wheezing GI: Denies: abdominal pain or bloating : Reports: hematuria and other (Longstanding urinary retention) Psych: Reports: memory loss Jose/Lymph: Reports: easy bruising All/Imm: Reports: acute wheezing; Denies: urticaria Medications/Allergies Home Medications Medication Instructions Recorded Confirmed Last Taken Type albuterol sulfate 90 mcg/actuation 2 puff INHALATION Q4H PRN 03/26/21 12/26/21 Unknown History aerosol inhaler (ProAir HFA) aspirin 81 mg tablet,delayed 81 mg PO QAM 03/26/21 12/26/21 12/26/21 History release (Anne Low Dose Aspirin) eslicarbazepine 400 mg tablet 400 mg PO QAM 03/26/21 12/26/21 12/26/21 History famotidine 20 mg tablet (Pepcid) 20 mg PO BID 03/26/21 12/26/21 12/26/21 History lacosamide 200 mg tablet 200 mg PO BID 03/26/21 12/26/21 12/26/21 History multivitamin 1 tab PO QAM 03/26/21 12/26/21 12/26/21 History potassium chloride 20 mEq/15 mL 7.5 meq PO QAM 03/26/21 12/26/21 12/26/21 History oral liquid pyridoxine (vitamin B6) 100 mg 100 mg PO DAILY 03/26/21 12/26/21 12/26/21 History tablet (Vitamin B-6) topiramate 200 mg tablet 200 mg PO BID 03/26/21 12/26/21 12/26/21 History tamsulosin 0.4 mg capsule 0.4 mg PO DAILY #90 cap 04/11/21 12/26/21 12/26/21 Rx finasteride 5 mg tablet 5 mg PO DAILY 08/21/21 12/26/21 12/25/21 History nitrofurantoin See Rx Instructions .ROUTE 12/24/21 12/26/21 12/26/21 Rx monohydrate/macrocrystals 100 mg .COMPLEX #60 cap capsule Allergies Allergy/AdvReac Type Severity Reaction Status Date / Time No Known Allergies Allergy Verified 11/20/21 08:48 Current Medications Generic Name Dose Route Start Last Admin Trade Name Freq PRN Reason Stop Dose Admin Famotidine 20 mg 12/27/21 09:00 12/27/21 17:03 Famotidine 20 Mg Tablet PO 20 mg BID BRITNI Administration Finasteride 5 mg 12/27/21 09:00 12/27/21 08:59 Finasteride 5 Mg Tablet PO 5 mg DAILY BRITNI Administration Sodium Chloride 1,000 mls @ 30 mls/hr 12/26/21 21:45 12/27/21 17:04 Sodium Chloride 0.9% IV 30 mls/hr .Q24H BRITNI Infusion Linezolid 600 mg in 300 mls @ 300 mls/hr 12/27/21 08:45 12/27/21 10:23 Zyvox Premix IV Infused Q12H BRITNI Infusion Protocol Pyridoxine HCl 100 mg 12/27/21 09:00 12/27/21 08:59 Pyridoxine 50 Mg Tablet PO 100 mg DAILY BRITNI Administration Tamsulosin HCl 0.4 mg 12/27/21 09:00 12/27/21 08:59 Tamsulosin 0.4 Mg Capsule PO 0.4 mg DAILY BRITNI Administration Topiramate 200 mg 12/27/21 09:00 12/27/21 17:03 Topiramate 100 Mg Tablet PO 200 mg BID BRITNI Administration PFSH Acute PFSH: Medical History BPH w urinary obs/LUTS DJD (degenerative joint disease) GERD (gastroesophageal reflux disease) History of lung cancer Recurrent UTI Seizure disorder Urinary retention Surgical History History of pneumonectomy Family History Mother , IN HER LATE 80'S Diabetes Social History Smoking and tobacco status: former smoker Alcohol intake: never Marital status: Current occupational status: retired History of recent travel: No Vitals/I&O/Wt Last Vital Signs Temp 97.9 F 12/27/21 11:10 Pulse 82 12/27/21 15:22 Resp 18 12/27/21 15:22 BP 117/71 12/27/21 15:22 Pulse Ox 96 12/27/21 15:22 12/27/21 12/27/21 12/27/21 06:59 14:59 22:59 Intake Total 0 / 50 1545 / 1545 1048.333 / 2593.333 Output Total 500 / 500 250 / 750 Balance 0 / 50 1045 / 1045 798.333 / 1843.333 Weight last 48 hrs Weight 145 lb Weight 145 lb Physical Exam Const: COMMON NORMALS: no acute distress, alert and well nourished GENERAL APPEARANCE: well kempt and well developed HENMT: COMMON NORMALS: normocephalic and atraumatic HEAD & SCALP: normocephalic and atraumatic Eye: COMMON NORMALS: conjunctivae normal and no scleral icterus CONJUNCTIVA: Yes conjunctivae normal Neck/C-Spine: COMMON NORMALS: full ROM Lymph: OTHER: No palpable inguinal lymphadenopathy Resp: EFFORT & INSPECTION: No Actively coughing OTHER: Audible wheezing and some tachypnea. No obvious labored : OTHER: 22 Arabic three-way Ordaz catheter in place draining pink urine. Also with significant amounts of purulence. No obvious genital lesions. Neuro: SENSORIUM/ORIENTATION: Yes alert Psych: APPEARANCE: Yes well kempt ATTITUDE: Yes calm and Yes engaged Skin: COMMON NORMALS: no jaundice Urinary Catheter Management: 3-way Urethral CBI: Cath Placed During This Visit: yes Reason for Continuing Indwelling Catheter: Acute Urinary Retention or Obstruction Urinary Catheter Date of Insertion: 12/27/21 Urinary Catheter Time of Insertion: 13:01 Data : 12/28/21 04:52 12/28/21 04:52 A&P Assessment and plan (1) Urinary retention: Status: Acute (2) Altered mental status: Status: Acute (3) Acute UTI: Status: Acute (4) BPH w urinary obs/LUTS: Status: Acute (5) Dementia: Status: Acute (6) Gross hematuria: Status: Acute Coding Level of Care Code Acute Supervisor Microwave for [facility] Fwd Exam Detailed Diagnoses Urinary retention R33.9 Altered mental status R41.82 Acute UTI N39.0 BPH w urinary obs/LUTS N40.1; N13.8 Dementia F03.90 Gross hematuria R31.0
[2021-12-28] VITALS (7 sets, daily range): BP systolic 99–110; BP diastolic 61–67; PULSE 75–87; RESP 16–20; TEMP 36.5–36.9; O2SAT 92–99
[2021-12-28 05:54] LABS: Basophils % 0.6 %; Eosinophils # 0.1 10^3/uL (0.0-0.8); Eosinophils % 0.9 %; Hematocrit 26.2 % (42.0-52.0); Hemoglobin 8.8 g/dL (11.7-16.6); Lymphocytes # 1.3 10^3/uL (0.8-4.8); Lymphocytes % 18.6 %; Mean Corpuscular HGB Conc 33.6 g/dL (30.0-36.0); Mean Corpuscular Hemoglobin 34.8 pg (28.0-34.0); Mean Corpuscular Volume 103.6 fl (80-94); Mean Platelet Volume 9.8 fL (7.4-10.4); Monocytes # 0.5 10^3/uL (0.2-0.9); Monocytes % 6.6 %; Neutrophils # 5.04 10^3/uL (1.8-7.7); Neutrophils % 72.6 %; Nucleated Red Blood Cells % 0 %; Platelet Count 172 10^3/cmm (130-400); Red Blood Count 2.53 10^6/uL (4.1-5.3); Red Cell Distribution Width 13.8 % (12.1-15.1); White Blood Count 6.9 10^3/uL (4.0-10.0)
[2021-12-28 06:17] LABS: Anion Gap 14.9 (5-19); Blood Urea Nitrogen 41 mg/dL (8-23); Calcium 7.7 mg/dL (8.5-10.5); Carbon Dioxide 17 mmol/L (22-29); Chloride 103 mmol/L (98-107); Glucose 103 mg/dL (65-115); Osmolality Calculated 282 mOsm/kg (285-295); Potassium 3.9 mmol/L (3.5-5.1); Sodium 131 mmol/L (136-145)
[2021-12-28] MEDS: sodium chloride 0.9% 1,000 ML 30 ML IV (06:25)
[2021-12-28 07:50] LABS: Slide Review Slide Review Perform
[2021-12-28] MEDS: finasteride 5 mg Tablet PO (08:34)
[2021-12-28] MEDS: tamsulosin 0.4 mg Capsule PO (08:34)
[2021-12-28] MEDS: pyridoxine 50 mg Tablet 100 MG PO (08:35)
[2021-12-28] MEDS: topiramate 100 mg Tablet 200 MG PO ×2 (08:35→17:01)
[2021-12-28] MEDS: famotidine 20 mg Tablet PO ×2 (08:35→17:02)
[2021-12-28] MEDS: linezolid premix 600 MG/300 ML PREMIX 300 MG IV ×2 (08:38→21:02)
[2021-12-28] MEDS: cefepime 1,000 MG in sodium chloride 0.9% (plus) 50 ML 100 MG IV (10:03)
--- NOTE | 2021-12-28 11:19 | PM.PN ---
Subjective Subjective: Hemoglobin dropped, hemodynamically stable Urine color has improved with manual irrigation Appreciate Dr. Obrien's recommendations Creatinine has improved Speech therapist recommended level 2 ground dysphagia diet Vitals/I&O/Wt Last Vital Signs Temp 98.2 F 12/28/21 07:53 Pulse 76 12/28/21 10:27 Resp 17 12/28/21 10:27 BP 104/67 12/28/21 07:53 Pulse Ox 98 12/28/21 10:27 12/27/21 12/28/21 12/28/21 22:59 06:59 14:59 Intake Total 1348.333 / 2893.333 851.667 / 3745.000 590 / 590 Output Total 250 / 750 500 / 1250 Balance 1098.333 / 2143.333 351.667 / 2495.000 590 / 590 Weight last 48 hrs Weight 61.87 kg Weight 65.771 kg Weight 65.771 kg Physical Exam Narrative: Patient is saturating well on room air Looks dehydrated Urine color is normal No active blood or clots Abdomen soft Mild audible rhonchi otherwise no signs of respiratory distress Patient is hard of hearing Able to answer my questions appropriately at the bedside Urinary Catheter Management: 3-way Urethral CBI: Cath Placed During This Visit: yes Reason for Continuing Indwelling Catheter: Acute Urinary Retention or Obstruction Urinary Catheter Date of Insertion: 12/27/21 Urinary Catheter Time of Insertion: 13:01 Data : 12/28/21 04:52 12/28/21 04:52 Micro: Microbiology 12/26/21 19:42 Urine Culture - Preliminary Urine,Clean Catch Gram Negative Rods A&P Assessment and plan (1) Urinary retention: Status: Acute (2) BPH w urinary obs/LUTS: Status: Acute (3) Acute UTI: Status: Acute (4) Aspiration of food: Status: Acute (5) Acute kidney injury superimposed on CKD: Status: Acute (6) Gross hematuria: Status: Acute Plan Acute blood loss anemia Hematuria UTI Hematuria related blood loss anemia Hemodynamically stable Will transfuse if hemoglobin goes below 8 JAJA with underlying chronic kidney disease related to hydronephrosis without obstruction, improved with manual irrigation of bladder, possible hematoma and bladder Discontinued aspirin and anticoagulating agent yesterday UTI: No fever, no leukocytosis Preliminary report of urine culture showing gram-negative rods previously it was positive for Pseudomonas, currently on cefepime and linezolid he also has history of Enterococcus vanc sensitive Continue antibiotics and IV fluids I might discharge him tomorrow if stays clinically stable he does not want to go to any intermediate, DNR/DNI Attestations Medical Necessity Statement*: Discharge tomorrow Time Spent in Patient Care: 35 Coding Level of Care Code Acute Upholsterer Apprentice for Chg Fwd Diagnoses Urinary retention R33.9 BPH w urinary obs/LUTS N40.1; N13.8 Acute UTI N39.0 Aspiration of food T17.928A Acute kidney injury superimposed on CKD N17.9; N18.9 Gross hematuria R31.0
--- NOTE | 2021-12-28 17:55 | PC.NURSE ---
Patient oriented to self only and is pleaseantly confused. He always has a smile upon entering room. at bedside. VSS per previous values, no new events, velez in place and patent with minimal small clots and tea colored urine. Frequent turns per orders. No new events, room clean and clutter free with call light in reach. Will report at bedside to oncoming nurse at shift change.
[2021-12-29] VITALS: BP 94/61; PULSE 79; RESP 19; TEMP 36.6; O2SAT 99
[2021-12-29 04:00] VITALS: BP 101/63; PULSE 70; RESP 17; TEMP 36.6; O2SAT 98
[2021-12-29 04:28] LABS: Basophils % 0.5 %; Eosinophils # 0.1 10^3/uL (0.0-0.8); Eosinophils % 1.2 %; Hematocrit 27.2 % (42.0-52.0); Hemoglobin 9.3 g/dL (11.7-16.6); Lymphocytes # 1.2 10^3/uL (0.8-4.8); Lymphocytes % 17.4 %; Mean Corpuscular HGB Conc 34.2 g/dL (30.0-36.0); Mean Corpuscular Volume 102.3 fl (80-94); Mean Platelet Volume 9.5 fL (7.4-10.4); Monocytes # 0.5 10^3/uL (0.2-0.9); Monocytes % 7.1 %; Neutrophils # 4.89 10^3/uL (1.8-7.7); Neutrophils % 73.5 %; Nucleated Red Blood Cells % 0 %; Platelet Count 192 10^3/cmm (130-400); Red Blood Count 2.66 10^6/uL (4.1-5.3); White Blood Count 6.7 10^3/uL (4.0-10.0)
[2021-12-29 04:46] LABS: Anion Gap 12.6 (5-19); Blood Urea Nitrogen 31 mg/dL (8-23); Calcium 7.6 mg/dL (8.5-10.5); Carbon Dioxide 20 mmol/L (22-29); Chloride 105 mmol/L (98-107); Glucose 99 mg/dL (65-115); Osmolality Calculated 285 mOsm/kg (285-295); Potassium 3.6 mmol/L (3.5-5.1); Sodium 134 mmol/L (136-145)
[2021-12-29 07:46] VITALS: PULSE 70; RESP 18; O2SAT 96
[2021-12-29 08:00] VITALS: BP 99/60; PULSE 76; RESP 14; TEMP 36.6; O2SAT 96
--- NOTE | 2021-12-29 08:21 | PC.SOCIAL ---
IMM UPDATED IMM dated, initialed and copy placed in chart and given to patient
[2021-12-29] MEDS: tamsulosin 0.4 mg Capsule PO (09:32)
[2021-12-29] MEDS: famotidine 20 mg Tablet PO (09:32)
[2021-12-29] MEDS: topiramate 100 mg Tablet 200 MG PO (09:33)
[2021-12-29] MEDS: finasteride 5 mg Tablet PO (09:33)
[2021-12-29] MEDS: pyridoxine 50 mg Tablet 100 MG PO (09:34)
[2021-12-29] MEDS: linezolid premix 600 MG/300 ML PREMIX 300 MG IV (09:35)
--- NOTE | 2021-12-29 09:46 | P.DS_ITS ---
Discharge Providers Date of Admission: 12/26/21 20:42 Date of Discharge: December 29, 2021 Attending Provider at Admission: Cuco Arora MD Attending Provider at Discharge: Horacio Gallardo MD Primary Care Provider: Blaze Simmons MD Diagnoses at Discharge Discharge Diagnosis (1) Urinary retention: Status: Acute (2) Altered mental status: Status: Acute (3) Acute UTI: Status: Acute (4) BPH w urinary obs/LUTS: Status: Acute (5) Dementia: Status: Acute (6) Gross hematuria: Status: Acute Reason for Visit Reason for Visit: POSSIBLE UTI Hospital Course Hospital Course HPI by Dr. Arora 81-year-old male with a past medical history significant for degenerative disorder, recurrent UTI , currently taking Macrobid for about a month's time , chronic obstructive pulmonary disease, obstructive sleep apnea on CPAP, hyperlipidemia, hypertension, gastroesophageal reflux disease, recurrent falls with hx of multilevel compression fractures (T4,T10,T11,T12), lung cancer with hx of left sided pneumonectomy, CVA (right caudate body), and seizure disorder w ho is presenting to ER with generalized weakness , fatigue , poor appetite, lethargy, going on for the last 3 to 4 days. Hospital course Patient was admitted for management evaluation of generalized weakness fatigue, acute on chronic kidney disease, CT scan of abdomen pelvis without contrast showed bilateral hydronephrosis without calculi, hematoma was found in the bladder, large bore Ordaz catheter was placed and manual irrigation was done which improved cross immaturity normal urine color. Hemoglobin remained stable. He did not require any blood transfusion. Dr. Obrien evaluated him in the hospital as well and recommended discharge with Ordaz catheter and outpatient follow-up. I have discontinued potassium and aspirin. Physical Exam Narrative: Patient is saturating well on room air Looks dehydrated Urine color is normal No active blood or clots Abdomen soft Mild audible rhonchi otherwise no signs of respiratory distress Patient is hard of hearing Able to answer my questions appropriately Urinary Catheter Management: 3-way Urethral CBI: Cath Placed During This Visit: yes Reason for Continuing Indwelling Catheter: Acute Urinary Retention or Obstruction Urinary Catheter Date of Insertion: 12/27/21 Urinary Catheter Time of Insertion: 13:01 Discharge Data Studies Completed and Pending Completed Studies During Hospitalization Category Date Time Status CT abdomen pelvis wo con [id number] Routine Cat Scan 12/27/21 08:[address] chest w con* [id number] Urgent Cat Scan 12/26/21 18:[address] head wo con* [id number] Urgent Cat Scan 12/26/21 20:14 Completed XR chest 1V portable [id number] Stat Exams 12/26/21 17:31 Completed Radiology Impressions Chest X-Ray 12/26/21 17:31 IMPRESSION: 1. Stable left lung opacity, volume loss, and dystrophic calcifications. 2. Hyperexpanded right lung. 3. New densities right mid and upper lobe CT chest recommended 4. Otherwise No acute findings. Chest CT 12/26/21 18:10 IMPRESSION: 1. Stable findings of pneumonectomy 2. No acute infiltrates in the right lung. 3. Chronic appearing compression deformities of the thoracic spine more numerous than on the previous exam. 4. Healing right 10th rib fractures new from the prior study. Head CT 12/26/21 20:14 IMPRESSION: No acute intracranial finding. Abdomen/Pelvis CT 12/27/21 08:09 IMPRESSION: 1. Bilateral hydronephrosis and hydroureter noted. No significant perinephric or periureteral fat stranding. Irregularity within the urinary bladder concerning for possible mass versus hematoma/clot. Recommend follow-up urological evaluation. 2. Colonic diverticulosis without signs of acute diverticulitis. COMMENTS: Evaluation of solid organs and vascular structures is limited as no IV contrast was administered. Laboratory Results WBC 6.7 10^3/uL (4.0-10.0) 12/29/21 04:07 RBC 2.66 10^6/uL (4.1-5.3) L 12/29/21 04:07 Hgb 9.3 g/dL (11.7-16.6) L 12/29/21 04:07 Hct 27.2 % (42.0-52.0) L 12/29/21 04:07 MCV 102.3 fl (80-94) H 12/29/21 04:07 MCH 35.0 pg (28.0-34.0) H 12/29/21 04:07 MCHC 34.2 g/dL (30.0-36.0) 12/29/21 04:07 RDW 14.0 % (12.1-15.1) 12/29/21 04:07 Plt Count 192 10^3/cmm (130-400) 12/29/21 04:07 MPV 9.5 fL (7.4-10.4) 12/29/21 04:07 Neut % (Auto) 73.5 % 12/29/21 04:07 Lymph % (Auto) 17.4 % 12/29/21 04:07 [place] % (Auto) 7.1 % 12/29/21 04:07 Eos % (Auto) 1.2 % 12/29/21 04:07 Baso % (Auto) 0.5 % 12/29/21 04:07 Neut # (Auto) 4.89 10^3/uL (1.8-7.7) 12/29/21 04:07 Lymph # (Auto) 1.2 10^3/uL (0.8-4.8) 12/29/21 04:07 [place] # (Auto) 0.5 10^3/uL (0.2-0.9) 12/29/21 04:07 Eos # (Auto) 0.1 10^3/uL (0.0-0.8) 12/29/21 04:07 Baso # (Auto) 0.0 10^3/uL (0.0-0.1) 12/29/21 04:07 Nucleated RBC % (auto) 0 % 12/29/21 04:07 Total Counted 100 (0-100) 12/27/21 05:01 Atypical Lymphs % 1.0 % (0-5) 12/27/21 05:01 Absolute Neutrophils 5.7 10^3/cmm (1.4-6.5) 12/27/21 05:01 Segmented Neutrophils 39 % 12/27/21 05:01 Abs Segm Neuts (Man) 3.2 10/cmm (1.6-7.1) 12/27/21 05:01 Band Neutrophils 30.0 % 12/27/21 05:01 Abs Band Neuts (Man) 2.5 10^3/cmm (0.0-1.2) H 12/27/21 05:01 Absolute Lymphocytes 1.8 10^3/cmm (1.2-3.4) 12/27/21 05:01 Lymphocytes (Manual) 21 % 12/27/21 05:01 Monocytes (Manual) 9.0 % 12/27/21 05:01 Absolute Monocytes 0.7 10^3/cmm (0.1-0.6) H 12/27/21 05:01 Eosinophils (Manual) 0 % 12/27/21 05:01 Absolute Eosinophils 0.0 10^3/cmm (0.0-0.7) 12/27/21 05:01 Basophils (Manual) Not Reportable 12/27/21 05:01 Absolute Basophils 0.0 10^3/cmm (0.0-0.2) 12/26/21 18:23 Nucleated RBCs # 0.0 /100WBC 12/29/21 04:07 Platelet Estimate Normal (Normal) 12/27/21 05:01 Macrocytosis 1+ H 12/27/21 05:01 Sodium 134 mmol/L (136-145) L 12/29/21 04:07 Potassium 3.6 mmol/L (3.5-5.1) 12/29/21 04:07 Chloride 105 mmol/L (98-107) 12/29/21 04:07 Carbon Dioxide 20 mmol/L (22-29) L 12/29/21 04:07 Anion Gap 12.6 (5-19) 12/29/21 04:07 BUN 31 mg/dL (8-23) H 12/29/21 04:07 Creatinine 1.1 mg/dL (0.7-1.2) 12/29/21 04:07 GFR Calculation Not Reportable 12/29/21 04:07 Glucose 99 mg/dL (65-115) 12/29/21 04:07 Calculated Osmolality 285 mOsm/kg (285-295) 12/29/21 04:07 Calcium 7.6 mg/dL (8.5-10.5) L 12/29/21 04:07 Total Bilirubin 0.4 mg/dL (0.15-1.2) 12/26/21 18:23 AST 82 U/L (0-40) H 12/26/21 18:23 ALT 70 U/L (0-41) H 12/26/21 18:23 Alkaline Phosphatase 112 IU/L (40-130) 12/26/21 18:23 Troponin T Baseline 39 ng/L (0-15) H 12/26/21 18:23 Total Protein 6.0 g/dL (6.6-8.7) L 12/26/21 18:23 Albumin 3.0 g/dL (3.5-5.2) L 12/26/21 18:23 Globulin 3.0 g/dL (1.3-4.6) 12/26/21 18:23 Lipase 22 U/L (13-60) 12/26/21 18:23 Urine Color [place]ba (Yellow) 12/26/21 19:42 Urine Appearance Turbid (CLEAR) 12/26/21 19:42 Urine pH 7 (5-7) 12/26/21 19:42 Ur Specific [place] 1.005 (1.005-1.030) 12/26/21 19:42 Urine Protein 2+ (Negative) H 12/26/21 19:42 Urine Glucose (UA) Norm (Normal) 12/26/21 19:42 Urine Ketones Negative (Negative) 12/26/21 19:42 Urine Blood 3+ (Negative) H 12/26/21 19:42 Urine Nitrate Negative (Negative) 12/26/21 19:42 Urine Bilirubin Neg (Negative) 12/26/21 19:42 Urine Urobilinogen Norm mg/dL (Negative) 12/26/21 19:42 Ur Leukocyte Esterase 2+ (Negative) H 12/26/21 19:42 Urine RBC Too numerous to cnt /hpf (0-2) H 12/26/21 19:42 Urine WBC Too numerous to cnt /hpf (0-5) H 12/26/21 19:42 Ur Squamous Epith Cells 0-4 /hpf (0-5) H 12/26/21 19:42 Amorphous Sediment Not Reportable 12/26/21 19:42 Urine Bacteria 4+ /hpf (NONE) H 12/26/21 19:42 Vitals Last Vital Signs Temp 97.8 F 12/29/21 08:00 Pulse 76 12/29/21 08:00 Resp 14 12/29/21 08:00 BP 99/60 12/29/21 08:00 Pulse Ox 96 12/29/21 08:00 Discharge Plan Discharge Patient Disposition: Home Condition: Stable Prescriptions: Continued tamsulosin 0.4 mg capsule 0.4 mg PO DAILY Qty: 90 3RF finasteride 5 mg tablet 5 mg PO DAILY 0RF topiramate 200 mg Tablet 200 mg PO BID 0RF multivitamin Tablet 1 tab PO QAM 0RF eslicarbazepine 400 mg Tablet 400 mg PO QAM 0RF pyridoxine (vitamin B6) [Vitamin B-6] 100 mg Tablet 100 mg PO DAILY 0RF albuterol sulfate [ProAir HFA] 90 mcg/actuation Hfa Aerosol Inhaler 2 puff inhalation Q4H PRN (Reason: Shortness Of Breath) 0RF lacosamide 200 mg Tablet 200 mg PO BID 0RF famotidine [Pepcid] 20 mg Tablet 20 mg PO BID 0RF Discontinued nitrofurantoin monohyd/m-cryst 100 mg capsule See Rx Instructions .ROUTE .COMPLEX Qty: 60 2RF Dose Instruction: TAKE ONE CAPSULE BY MOUTH TWICE DAILY WITH FOOD/MEAL Rx Instructions: TAKE ONE CAPSULE BY MOUTH TWICE DAILY WITH FOOD/MEAL aspirin [Anne Low Dose Aspirin] 81 mg Tablet,Delayed Release (Dr/Ec) 81 mg PO QAM 0RF potassium chloride 20 mEq/15 mL Liquid 7.5 meq PO QAM 0RF Discharge Orders: Discharge Order (Routine); Ordered 12/29/21 Ordered By: Horacio Gallardo Referrals: Anthony Obrien MD [Physician] - 1-3 days Blaze Simmons MD [Primary Care Provider] - 4-7 days (please contact friday for appointment info.) Discharge Diet: GI Soft Discharge Activity: Use walker/crutches as instructed Patient Instructions: Opioid Safety Discharge Attestations Time Spent in Discharge Care*: less than 30 min Status at Discharge: Cognitive status at discharge: cognitively intact , Behavioral status at discharge: cooperative , Quality Metrics Clinical Quality Measures [ No reported AMI, CVA or VTE this stay] Coding Level of Care Code Acute Chg FW DC note Diagnoses Urinary retention R33.9 Altered mental status R41.82 Acute UTI N39.0 BPH w urinary obs/LUTS N40.1; N13.8 Dementia F03.90 Gross hematuria R31.0
[2021-12-29] MEDS: cefepime 1,000 MG in sodium chloride 0.9% (plus) 50 ML 100 MG IV (10:53)
[2021-12-29 12:00] VITALS: BP 126/64; PULSE 77; TEMP 36.8; O2SAT 97
[2021-12-29 14:40] VITALS: BP 126/64; PULSE 77; RESP 18; TEMP 36.8; O2SAT 97
--- NOTE | 2021-12-29 14:40 | PC.NURSE ---
Discharge education reviewed with patient and spouse at bedside with velez care instructions and visual representation. is confident in her ability to fully care for velez. understands that she needs to call the two physicians to schedule the f/u per discharge orders and to also inquire about antibiotics as discharge did not have any new scripts to be picked up. Patient taken out by wc and use of gait belt to safely get patient into car to go home. All questions and concerns answered.
== END 2021-12-29 14:43 | disposition home or self-care (01) ==
LOC: ER 18:11 → MEDSURG 12-27 00:13
PROVIDERS: Admitting Provider Internal Medicine; Emergency Provider Emergency Medicine; PCP Family Medicine; Visit Provider Internal Medicine
DX: R33.9 Retention of urine, unspecified (principal); R41.82 Altered mental status, unspecified; N39.0 Urinary tract infection, site not specified; N40.1 Benign prostatic hyperplasia with lower urinary tract symptoms; N13.8 Other obstructive and reflux uropathy; F03.90 Unspecified dementia, unspecified severity, without behavioral disturbance, psychotic disturbance, mood disturbance, and anxiety; R31.0 Gross hematuria; G47.33 Obstructive sleep apnea (adult) (pediatric); E78.5 Hyperlipidemia, unspecified; Z91.81 History of falling; Z85.118 Personal history of other malignant neoplasm of bronchus and lung; J44.9 Chronic obstructive pulmonary disease, unspecified; I12.9 Hypertensive chronic kidney disease with stage 1 through stage 4 chronic kidney disease, or unspecified chronic kidney disease; N18.9 Chronic kidney disease, unspecified; Z87.891 Personal history of nicotine dependence; Z66 Do not resuscitate; I44.0 Atrioventricular block, first degree
CPT/HCPCS: 36415; 51702; 70450; 71045; 71260; 74176; 80048; 80053; 81001; 83690; 84484; 85007; 85025; 87077; 87086; 87186; 92526; 92610; 93005; 96365; 96372; 97110; 97161; 97530; 99285; G0378; J0692; J0696; J1650; J2020; J7030; Q9967

== ENCOUNTER → 2022-01-04 09:00 | Outpatient (BNVA) | payer MEDICARE, SELFPAY | PROVIDERS: PCP Family Medicine; Visit Provider Urology | DX: R33.9 Retention of urine, unspecified (principal); N39.0 Urinary tract infection, site not specified | CPT/HCPCS: 99213 ==

== ENCOUNTER 2022-04-10 15:46 | Emergency (ER) | payer MEDICARE, SELFPAY ==
--- NOTE | 2022-04-10 17:01 | USR_ITS ---
PROCEDURE INFORMATION: Exam: US Duplex Lower Extremity Veins, Bilateral Exam date and time: 04/10/2022 7:42 PM Age: 82 years old Clinical indication: Edema, localized; Lower extremity, bilateral; Patient HX: Chronic bilateral lower extremity edema. No history of dvt per patient. ; Additional info: Leg pain and swelling TECHNIQUE: Imaging protocol: Real-time Duplex ultrasound of the bilateral extremities with 2-D finney scale, color Doppler flow and spectral waveform analysis with image documentation. Complete exam focused on the bilateral lower extremity veins. COMPARISON: CT abdomen pelvis wo con [id number] 12/27/2021 9:54 AM FINDINGS: Right deep veins: The common femoral, femoral, proximal profunda femoral, popliteal, and posterior tibial veins are patent without thrombus. Normal compressibility and/or augmentation response. Right superficial veins: Saphenofemoral junction is patent without thrombus. Left deep veins: The common femoral, femoral, proximal profunda femoral, popliteal, and posterior tibial veins are patent without thrombus. Normal compressibility and/or augmentation response. Left superficial veins: Saphenofemoral junction is patent without thrombus. Soft tissues: Mild subcutaneous edema at both right and left lower legs. US/[place] [id number] IMPRESSION: 1. No evidence for deep venous thrombosis in the right or left lower extremities. 2. Mild subcutaneous edema at both right and left lower legs.
[2022-04-10 17:35] VITALS: BP 191/79; PULSE 81; RESP 16; TEMP 36.4; O2SAT 97; BMI 25.4
--- NOTE | 2022-04-10 20:38 | ED_ITS ---
HPI - Extremity Problem General: Chief complaint: Extremity Problem,Nontraumatic Stated complaint: swollen legs and pain on each side Time Seen by Provider: 04/10/22 20:23 History of Present Illness: 82-year-old male presents with bilateral lower extremity swelling. Patient reports is been going on for about 3 to 4 days. Patient's home health care nurse sent him in for evaluation. There is no redness, warmth. Patient has swelling and below his knees in both legs and in the feet. He denies any previous lower extremity edema. He denies any CHF or cardiac history or new medications. Patient does have a history of BPH and has a indwelling Ordaz. Patient with no fevers chills nausea vomiting or other systemic complaints. Associated symptoms: Deny chest pain, fever(s) or rash Review of Systems Const: Denies: fever(s) or chills Eyes: Denies: change in vision ENMT: Denies: throat pain or ear or mastoid pain Card: Reports: edema (Bilateral) and swelling of feet/ankles; Denies: chest pain or palpitations Resp: Denies: dyspnea, productive cough or wheezing GI: Denies: abdominal pain, nausea or vomiting : Reports: other (Chronic catheter); Denies: flank pain Musc: Reports: extremity swelling Skin/Breast: Denies: rash or erythema Neuro: Denies: headache(s) or dizziness Psych: Denies: anxiety or depression PFS ED PFSH: Medical History (Updated 04/10/22 @ 22:28 by Brayden Frankel DO) Acute kidney injury superimposed on CKD Altered mental status Aspiration of food BPH w urinary obs/LUTS Dementia DJD (degenerative joint disease) Dyspnea GERD (gastroesophageal reflux disease) Gross hematuria History of lung cancer Hypertension Recurrent UTI Seizure disorder Urinary retention Surgical History History of pneumonectomy Family History Mother , IN HER LATE 80'S Diabetes Social History Smoking and tobacco status: former smoker Alcohol intake: never Marital status: Current occupational status: retired History of recent travel: No Physical Exam Const: COMMON NORMALS: no acute distress and alert HENMT: COMMON NORMALS: hearing grossly normal bilaterally and moist oral mucous membranes Resp: COMMON NORMALS: normal respiratory effort, No use of accessory muscles and clear to auscultation bilaterally AUSCULTATION: clear to auscultation bilaterally Cardio: COMMON NORMALS: regular rate and regular rhythm RATE: regular rate RHYTHM: regular rhythm Extremity: NARRATIVE EXTREMITY EXAM: 2+ bilateral lower extremity below the knees Neuro: COMMON NORMALS: no focal motor deficits and no sensory deficits noted SENSORIUM/ORIENTATION: Yes alert Psych: COMMON NORMALS: cooperative and speech normal SPEECH: Yes normal speech Skin: COMMON NORMALS: no rashes or lesions noted GENERAL SKIN EXAM: no rashes or lesions noted Course Vital Signs: Vital signs: Vital Signs Temperature 97.6 F 04/10/22 17:35 Pulse Rate 85 04/10/22 22:19 Respiratory Rate 17 04/10/22 22:19 Blood Pressure 166/85 04/10/22 22:19 Pulse Oximetry 96 04/10/22 22:19 Oxygen Delivery Me thod 04/10/22 22:19 MDM - Extremity (Nontraumatic) Medical Decision Making Patient with bilateral lower extremity edema. I will start him on Lasix. Rec ommended he use compression stockings and follow with her primary care provider in a couple days for recheck of his symptoms and to ensure he is handling the medication okay patient stable and discharged Lab Data : 04/10/22 21:30 04/10/22 21:30 Radiology Impressions Venous Duplex 04/10/22 17:01 IMPRESSION: 1. No evidence for deep venous thrombosis in the right or left lower extremities. 2. Mild subcutaneous edema at both right and left lower legs. Laboratory Results WBC 5.3 10^3/uL (4.0-10.0) 04/10/22 21:30 RBC 3.28 10^6/uL (4.1-5.3) L 04/10/22 21:30 Hgb 11.9 g/dL (11.7-16.6) 04/10/22 21:30 Hct 36.5 % (42.0-52.0) L 04/10/22 21:30 MCV 111.3 fl (80-94) H 04/10/22 21:30 MCH 36.3 pg (28.0-34.0) H 04/10/22 21:30 MCHC 32.6 g/dL (30.0-36.0) 04/10/22 21: RDW 12.2 % (12.1-15.1) 04/10/22: Plt Count 148 10^3/cmm (130-400) 04/10/22 21: MPV 9.6 fL (7.4-10.4) 04/10/22 21: Neut % (Auto) 49.1 % 04/10/22: Lymph % (Auto) 38.6 % 04/10/22 21:30 [place] % (Auto) 10.2 % 04/10/22: Eos % (Auto) 1.1 % 04/10/22: Baso % (Auto) 0.6 % 04/10/22: Neut # (Auto) 2.60 10^3/uL (1.8-7.7) 04/10/22: Lymph # (Auto) 2.0 10^3/uL (0.8-4.8) 04/10/22: [place] # (Auto) 0.5 10^3/uL (0.2-0.9) 04/10/22 21: Eos # (Auto) 0.1 10^3/uL (0.0-0.8) 04/10/22: Baso # (Auto) 0.0 10^3/uL (0.0-0.1) 04/10/22: Nucleated RBC % (auto) 0 % 04/10/22: Nucleated RBCs # 0.0 /100WBC 04/10/22: Sodium 136 mmol/L (136-145) 04/10/22 21: Potassium 4.0 mmol/L (3.5-5.1) 04/10/22: Chloride 101 mmol/L (98-107) 04/10/22: Carbon Dioxide 25 mmol/L (22-29) 04/10/22: Anion Gap 14.0 (5-19) 04/10/22: BUN 25 mg/dL (8-23) H 04/10/22: Creatinine 1.1 mg/dL (0.7-1.2) 09/21/22 21:30 GFR Calculation Not Reportable 04/10/22 21:30 Glucose 115 mg/dL (65-115) 04/10/22 21:30 Calculated Osmolality 287 mOsm/kg (285-295) 04/10/22 21:30 Calcium 9.3 mg/dL (8.5-10.5) 04/10/22 21:30 Discharge Plan Discharge Patient Disposition: Home Clinical Impression: Lower extremity edema Condition: Stable Prescriptions: New furosemide [Lasix] 40 mg tablet 40 mg PO QAM Qty: 7 0RF No Action tamsulosin 0.4 mg capsule 0.4 mg PO DAILY Qty: 90 3RF finasteride 5 mg tablet 5 mg PO DAILY topiramate 200 mg Tablet 200 mg PO BID multivitamin Tablet 1 tab PO QAM eslicarbazepine 400 mg Tablet 400 mg PO QAM pyridoxine (vitamin B6) [Vitamin B-6] 100 mg Tablet 100 mg PO DAILY albuterol sulfate [ProAir HFA] 90 mcg/actuation Hfa Aerosol Inhaler 2 puff inhalation Q4H PRN (Reason: Shortness Of Breath) lacosamide 200 mg Tablet 200 mg PO BID famotidine [Pepcid] 20 mg Tablet 20 mg PO BID Discharge Orders: Discharge ED (Routine); Ordered 04/10/22 Ordered By: Brayden Frankel Referrals: Blaze Simmons MD [Primary Care Provider] - Patient Instructions: Opioid Safety, Pain Management, Leg Edema (ED) Activity Restrictions/Additional Instructions: Please start wearing compression stockings tomorrow this is available at the local pharmacy. Your pharmacy can help you pick out the proper size. Please follow-up with your primary care provider in a couple days for recheck of your symptoms and ensure your medication is working properly Coding Level of Care Code ED Partition Notcher for Chg Fwd Exam Detailed
--- NOTE | 2022-04-10 21:41 | PC.NURSE ---
Patient c/o increased swelling to his lower extremities, patient states the doctor is supposed to be running some tests to see what dose of water pill he needs.
[2022-04-10 21:44] LABS: Basophils % 0.6 %; Eosinophils # 0.1 10^3/uL (0.0-0.8); Eosinophils % 1.1 %; Hematocrit 36.5 % (42.0-52.0); Hemoglobin 11.9 g/dL (11.7-16.6); Lymphocytes % 38.6 %; Mean Corpuscular HGB Conc 32.6 g/dL (30.0-36.0); Mean Corpuscular Hemoglobin 36.3 pg (28.0-34.0); Mean Corpuscular Volume 111.3 fl (80-94); Mean Platelet Volume 9.6 fL (7.4-10.4); Monocytes # 0.5 10^3/uL (0.2-0.9); Monocytes % 10.2 %; Neutrophils % 49.1 %; Nucleated Red Blood Cells % 0 %; Platelet Count 148 10^3/cmm (130-400); Red Blood Count 3.28 10^6/uL (4.1-5.3); Red Cell Distribution Width 12.2 % (12.1-15.1); White Blood Count 5.3 10^3/uL (4.0-10.0)
[2022-04-10 22:00] LABS: Blood Urea Nitrogen 25 mg/dL (8-23); Calcium 9.3 mg/dL (8.5-10.5); Carbon Dioxide 25 mmol/L (22-29); Chloride 101 mmol/L (98-107); Glucose 115 mg/dL (65-115); Osmolality Calculated 287 mOsm/kg (285-295); Sodium 136 mmol/L (136-145)
[2022-04-10 22:19] VITALS: BP 166/85; PULSE 85; RESP 17; O2SAT 96
[2022-04-10] MEDS: FUROsemide 40 mg Tablet PO (22:32)
[2022-04-10 22:34] VITALS: BP 147/73; PULSE 88; RESP 17; TEMP 36.5; O2SAT 97
== END 2022-04-10 22:46 | disposition home or self-care (01) ==
PROVIDERS: Emergency Provider Student in an Organized Health Care Education/Training Program; PCP Family Medicine
DX: R60.0 Localized edema (principal); F03.90 Unspecified dementia, unspecified severity, without behavioral disturbance, psychotic disturbance, mood disturbance, and anxiety; I10 Essential (primary) hypertension; Z85.118 Personal history of other malignant neoplasm of bronchus and lung; Z87.891 Personal history of nicotine dependence
CPT/HCPCS: 36415; 80048; 85025; 93970; 96374; 99285

== ENCOUNTER → 2022-04-16 10:59 | Outpatient (BNVA) | payer MEDICARE, SELFPAY | PROVIDERS: PCP Family Medicine; Visit Provider Family Medicine | DX: R60.0 Localized edema (principal); Z09 Encounter for follow-up examination after completed treatment for conditions other than malignant neoplasm; I10 Essential (primary) hypertension; F03.90 Unspecified dementia, unspecified severity, without behavioral disturbance, psychotic disturbance, mood disturbance, and anxiety | CPT/HCPCS: 80048; 83880; 84443 ==

== ENCOUNTER → 2022-06-06 10:17 | Outpatient (BNVA) | payer MEDICARE, SELFPAY | PROVIDERS: PCP Family Medicine; Visit Provider Family Medicine | DX: I50.9 Heart failure, unspecified (principal); R60.9 Edema, unspecified; I10 Essential (primary) hypertension | CPT/HCPCS: 80048; 83880 ==

== ENCOUNTER → 2022-07-02 14:25 | Outpatient (BNVA) | payer MEDICARE, SELFPAY | PROVIDERS: PCP Family Medicine; Visit Provider Urology | DX: N40.1 Benign prostatic hyperplasia with lower urinary tract symptoms (principal); N39.0 Urinary tract infection, site not specified; R33.9 Retention of urine, unspecified; N13.8 Other obstructive and reflux uropathy; F03.90 Unspecified dementia, unspecified severity, without behavioral disturbance, psychotic disturbance, mood disturbance, and anxiety; N48.1 Balanitis | CPT/HCPCS: 81003; 99213 ==